=== PATIENT | female | born 1935 | race Caucasian/White ===

== ENCOUNTER → 2016-11-06 | Outpatient (CLI) | payer OTHER ==
[~2016-11-06] MED LIST: ESTR0.3T PO; HYD50 PO; LISI-725 PO; POTA10CA28 PO; PRLSR20 PO
[2016-11-06 12:36] LABS: BASO % 0.5 %; BASO ABS # 0.04 K/uL (0-0.2); COMPLETE YES; EOS % 2.3 %; HEMATOCRIT 46.2 % (37-47); IG% 0.2 %; LYMPH % 26.7 %; LYMPH ABS # 2.19 K/uL (1.2-3.4); MEAN CELL VOLUME 98.1 fL (80-100); MEAN CORPUSCULAR HEMOGLOBIN 32.1 pg (25-34); MEAN CORPUSCULAR HGB CONC 32.7 g/dl (32-36); MEAN PLATELET VOLUME 10.6 fL (7.4-10.4); MONO % 12.1 %; NEUT % 58.2 %; PLATELET COUNT 274 K/uL (130-400); RED BLOOD COUNT 4.71 M/uL (4.2-5.4)
[2016-11-06 12:58] LABS: ESTIMATED AVERAGE GLUCOSE 131 mg/dl; HA1C FLAG Normal (Normal)
[2016-11-06 13:08] LABS: ALT/SGPT 21 U/L (12-78); BLOOD UREA NITROGEN 30 mg/dl (7-18); BUN/CREATININE RATIO 32.4 (10-20); CALCIUM 9.6 mg/dl (8.5-10.1); CARBON DIOXIDE 29 mmol/L (21-32); CHLORIDE 104 mmol/L (98-107); CREATININE 0.91 mg/dl (0.60-1.20); GLUCOSE 108 mg/dl (70-99); POTASSIUM 4.3 mmol/L (3.5-5.1); SODIUM 138 mmol/L (136-145)
[2016-11-06 13:11] LABS: ALB/GLOB RATIO 1.2 (0.9-2); ALKALINE PHOSPHATASE 89 U/L (45-117); AST/SGOT 18 U/L (15-37)
== END | disposition home or self-care (01) ==
LOC: C.LABPVFM 07:36
PROVIDERS: ATTEND Family Medicine
DX: K21.9 Gastro-esophageal reflux disease without esophagitis (principal); N39.41 Urge incontinence; E87.6 Hypokalemia; I10 Essential (primary) hypertension; E11.9 Type 2 diabetes mellitus without complications; R60.9 Edema, unspecified; D64.9 Anemia, unspecified

== ENCOUNTER → 2016-12-13 | Outpatient (CLI) | payer OTHER ==
--- NOTE | 2016-12-16 12:30 | MAMMOGRAPHY REPORT ---
BILATERAL DIGITAL SCREENING MAMMOGRAM WITH CAD: 12/13/2016 CLINICAL HISTORY: Routine screening. Patient has no complaints. TECHNIQUE: Current study was also evaluated with a Computer Aided Detection (CAD) system. Bilateral CC and MLO views were obtained. COMPARISON: Comparison is made to exams dated: 12/13/2015 mammogram, 12/09/2014 mammogram, 12/08/2013 ma mmogram, 12/07/2012 mammogram, 12/05/2011 mammogram, and 12/03/2010 mammogram - [facility]ter. BREAST COMPOSITION: There are scattered areas of fibroglandular density in both breasts. FINDINGS: There are newly visualized faint punctate densities in bilateral posterior breasts, which may represent dermal calcifications or could be artifactual and related to lotion or other product on the skin, however, breast parenchymal calcifications cannot be excluded. Recommend spot magnificati on views and possible spot compression tomosynthesis views for further evaluation. The remainder of the left breast are stable compared to prior exams, without suspicious masses, calci fications, or areas of architectural distortion noted. Other scattered bilateral benign-appearing ca lcifications are not significantly changed. IMPRESSION: ACR BI-RADS CATEGORY 0: INCOMPLETE EVALUATION: NEED ADDITIONAL IMAGING EVALUATION Possible bilateral posterior breast or dermal calcifications, for which additional imaging evaluation is recommended. The patient will be called to schedule an appointment. Approximately 10% of breast cancers are not detected with mammography. A negative mammographic report should not delay biopsy if a clinically suggestive mass is present. Cathy Bravo M.D. ah/:12/14/2016 14:29:10 Shells Inspector: Emmie KHAN(R)(M), [facility] letter sent: Addl Imaging 0 BI-RADS Code: ACR BI-RADS Category 0: Incomplete Evaluation: Need Additional Imaging Evaluation
== END | disposition home or self-care (01) ==
LOC: C.MAMM 10:58
PROVIDERS: ATTEND Family Medicine
DX: Z12.31 Encounter for screening mammogram for malignant neoplasm of breast (principal); R92.8 Other abnormal and inconclusive findings on diagnostic imaging of breast

== ENCOUNTER → 2016-12-24 | Outpatient (CLI) | payer OTHER ==
--- NOTE | 2016-12-24 14:38 | MAMMOGRAPHY REPORT ---
BILATERAL DIGITAL DIAGNOSTIC MAMMOGRAM TOMOSYNTHESIS: 12/24/2016 CLINICAL HISTORY: 81 year-old woman called back from screening mammography for bilateral microcalcifi cations. TECHNIQUE: Spot magnification CC and ML views of each breast, full-field MLO 2-D and tomosynthesis i mages were obtained. COMPARISON: Comparison is made to exams dated: 12/13/2016 mammogram, 12/13/2015 mammogram, 12/09/2014 delon mogram, 12/08/2013 mammogram, 12/07/2012 mammogram, and 12/05/2011 mammogram - [facility]. BREAST COMPOSITION: There are scattered areas of fibroglandular density in both breasts. FINDINGS: Spot magnification views of both breasts demonstrate multiple groupings of amorphous densit ies in each posterior breast, mostly in the inferior and medial aspect of the breasts. On the full-f ield MLO tomosynthesis images, these amorphous densities are seen on the first slice, correlating wit h skin, and confirming benignity. On visual inspection, the patient has multiple keratoses along the lower inner quadrant of each breast. No suspicious mass, architectural distortion or cluster of alma picious microcalcifications are identified within the breasts. IMPRESSION: ACR BI-RADS CATEGORY 2: BENIGN The multiple groupings of amorphous densities in each lower inner posterior breast correlate with pia mal calcifications involving raised keratoses. There is no mammographic evidence of malignancy. Retu rn to annual mammogram screening schedule is recommended. The patient has been verbally notified of the results. Approximately 10% of breast cancers are not detected with mammography. A negative mammographic report should not delay biopsy if a clinically suggestive mass is present. April Saeed M.D. ay/:12/24/2016 09:44:25 Assembly Associate: Lian Peacock RT(R)(M), [facility] letter sent: Normal 1/2 BI-RADS Code: ACR BI-RADS Category 2: Benign
== END | disposition home or self-care (01) ==
LOC: C.MAMM 08:55
PROVIDERS: ATTEND Family Medicine
DX: R92.8 Other abnormal and inconclusive findings on diagnostic imaging of breast (principal)

== ENCOUNTER → 2017-05-07 | Outpatient (CLI) | payer OTHER ==
[2017-05-07 12:55] LABS: ALBUMIN 3.9 gm/dl (3.4-5.0); ALT/SGPT 21 U/L (12-78); BLOOD UREA NITROGEN 32 mg/dl (7-18); CALCIUM 9.3 mg/dl (8.5-10.1); CARBON DIOXIDE 29 mmol/L (21-32); CREATININE 0.79 mg/dl (0.60-1.20); GLUCOSE 126 mg/dl (70-99); SODIUM 137 mmol/L (136-145)
[2017-05-07 12:59] LABS: ALKALINE PHOSPHATASE 86 U/L (45-117); AST/SGOT 19 U/L (15-37); TOTAL PROTEIN 7.4 gm/dl (6.4-8.2)
[2017-05-07 13:05] LABS: HEMOGLOBIN A1C 6.2 % (4.5-5.6)
== END | disposition home or self-care (01) ==
LOC: C.LABPVFM 07:47
PROVIDERS: ATTEND Family Medicine
DX: N39.41 Urge incontinence (principal); E87.6 Hypokalemia; E11.9 Type 2 diabetes mellitus without complications; D64.9 Anemia, unspecified; I10 Essential (primary) hypertension

== ENCOUNTER 2021-04-18 13:01 | Inpatient (IN) ==
--- NOTE | 2021-04-18 14:10 | XRay Report ---
XR chest 1V portable CLINICAL HISTORY: SOB TECHNIQUE: Single frontal radiograph of the chest was obtained. Comparison: Comparison is made to chest one view 03/17/2009 FINDINGS: No lines and tubes are seen. Cardiomegaly is noted. Prominence and cephalization of the vasculature i s seen. No evidence of pleural effusion or pneumothorax. IMPRESSION: Mild pulmonary edema. ACT 112: Negative or not required by law. Electronically signed by: Enzo Solorzano M.D. 04/18/2021 2:09 PM
[2021-04-18 14:43] LABS: Basophils # (auto) 0.01 K/uL (0-0.2); Basophils % (auto) 0.1 %; Eosinophils # (auto) 0.06 K/uL (0-0.5); Eosinophils % (auto) 0.8 %; Hematocrit (blood only) 44.9 % (37-47); Hemoglobin 14.2 g/dL (12.0-16.0); Immature Granulocytes # (auto) 0.02 K/uL (0.00-0.02); Immature Granulocytes % (auto) 0.3 %; Lymphocytes # (auto) 0.97 K/uL (1.2-3.4); Lymphocytes % (auto) 12.6 %; Mean Corpuscular Hemoglobin 32.1 pg (25-34); Mean Corpuscular Hgb Conc 31.6 g/dL (32-36); Mean Corpuscular Volume 101.4 fL (80-100); Mean Platelet Volume 10.9 fL (7.4-10.4); Monocytes # (auto) 0.89 K/uL (0.11-0.59); Monocytes % (auto) 11.5 %; Neutrophils # (auto) 5.77 K/uL (1.4-6.5); Neutrophils % (auto) 74.7 %; Platelet Count 161 K/uL (130-400); RDW Coefficient of Variation 14.9 % (11.5-14.5); RDW Standard Deviation 54.3 fL (36.4-46.3); Red Blood Count 4.43 M/uL (4.2-5.4); White Blood Count 7.72 K/uL (4.8-10.8)
[2021-04-18 15:06] LABS: Alanine Aminotransferase 41 (12-78); Albumin Level 3.6 gm/dl (3.4-5.0); Aspartate Aminotransferase 28 U/L (15-37); BUN Creatinine Ratio 32.4 (10-20); Blood Urea Nitrogen 37 mg/dl (7-18); Carbon Dioxide 30 mmol/L (21-32); Chloride 106 mmol/L (98-107); Glucose 120 mg/dl (70-99); Magnesium 1.9 mg/dl (1.8-2.4); Sodium 142 mmol/L (136-145)
[2021-04-18 15:08] LABS: INR 1.1 (0.9-1.1); Partial Thromboplastin Ratio 0.9; Partial Thromboplastin Time 22.5 Seconds (21.0-31.0); Prothrombin Time 11.2 Seconds (9.0-12.0)
[2021-04-18 15:11] LABS: Alkaline Phosphatase 85 U/L (45-117); Globulin 3.5 gm/dl (2.5-4.0); Total Protein 7.1 gm/dl (6.4-8.2); Troponin I < 0.015 ng/ml (0-0.045)
--- NOTE | 2021-04-18 16:23 | Electrocardiogram Report ---
Test Reason : Blood Pressure : / mmHG Vent. Rate : 089 BPM Atrial Rate : 100 BPM P-R Int : 000 ms QRS Dur : 090 ms QT Int : 362 ms P-R-T Axes : 000 -32 018 degrees QTc Int : 440 ms Poor data quality, interpretation may be adversely affected Atrial fibrillation Left axis deviation Low voltage QRS Possible Anterolateral infarct (cited on or before 18-MAY-2008) Abnormal ECG When compared with ECG of 18-MAY-2008 00:34, Significant changes have occurred Confirmed by Hector Damon ([id number]) on 04/18/2021 4:23:50 PM Referred By: Confirmed By:Hector Damon
--- NOTE | 2021-04-18 16:25 | Emergency Department Note ---
History of Present Illness General Chief complaint: Swelling/Edema to Extremity Stated complaint: SOB, SWOLLEN LEGS, TIRED Time Seen by Provider: 04/18/21 16:02 History of Present Illness 85-year-old female presents to the ED with a chief complaint of 20 pound weight gain over the past month as well as exertional shortness of breath. She has had an increase in her pedal edema as well. The patient denies a history of atrial fibrillation. No fevers or cough. Is taking her medications as prescribed. Nothing helps. Home Medications Medication Instructions Recorded Confirmed Type ferrous fumarate 324 mg (106 mg 324 mg PO DAILY PRN #30 tab 12/26/18 11/21/20 History iron) tablet lisinopril 10 mg tablet 10 mg PO DAILY #90 tab 05/08/20 11/21/20 Rx omeprazole 20 mg capsule,delayed 20 mg PO DAILY #90 cap 07/24/20 11/21/20 Rx release hydrochlorothiazide 50 mg tablet 50 mg PO DAILY #90 tab 10/02/20 11/21/20 Rx Allergies Allergy/AdvReac Type Severity Reaction Status Date / Time Sulfa (Sulfonamide Allergy Unknown Verified 05/30/20 11:08 Antibiotics) Past Med/Surg History Medical History DM (diabetes mellitus), type 2 Hypertension Never a smoker No illicit drug use Surgical History History of section History of hip surgery Left History of hysterectomy History of total knee arthroplasty Family History Daughter Lymphoma Sister Breast cancer Brother Brain tumor Other Diabetes Family history of coronary artery disease Denies family history of Ovarian cancer Prostate cancer Myocardial infarction Colorectal cancer Social History Smoking Status: Never smoker Second Hand Exposure: No; Hx Alcohol Use: No Hx Substance Use: Yes Preferred Language: Montserratian Communication Ability: Effective Hearing Ability: Normal marital status: Current Living Situation: Spouse current occupational status: retired How many Children do You have: 7 Feels Safe at Home: Yes Childhood Exposure to Second-Hand Smoke: Yes caffeine: Yes Dental Care, Regularly: No Physical Activity Frequency: Does not Exercise Seatbelt Use: sometimes Sunscreen Use: No Review of Systems A total of 10 systems reviewed and were otherwise negative Physical Exam Vital Signs Vital Signs - 24 hr 04/18/21 13:37 Temperature 36.7 C Temperature Source Temporal Artery Scan Pulse Rate 90 Respiratory Rate 20 Respiratory Effort / Characteristics Non-Labored Spontaneous Respiratory Depth Normal Respiratory Pattern Regular Blood Pressure 133/78 Blood Pressure Mean 96 Pulse Oximetry 93 Oxygen Delivery Method Room Air Sepsis Recent Fever Within 48 Hours No Sepsis New/Unexplained Change in Mental Status No Sepsis Action Taken by Nursing No Action Required CONSTITUTIONAL/VITAL SIGNS: Reviewed / noted above. GENERAL: Non-toxic in appearance. INTEGUMENTARY: Warm, dry, and [place]. HEAD: Normocephalic. EYES: without scleral icterus or trauma. ENT/OROPHARYNX: clear and moist. LYMPHADENOPATHY/NECK: Is supple without lymphadenopathy or meningismus. RESPIRATORY: Diminished auscultation bilaterally. No increased work of breathing. CARDIOVASCULAR: Regular rate and irregular rhythm. GI/ABDOMEN: Soft and nontender. No organomegaly or pulsatile mass. EXTREMITIES: Warm and well perfused. Positive pedal edema. BACK: No CVA tenderness. NEUROLOGICAL: Intact without focal deficits. PSYCHIATRIC: normal affect. MUSCULOSKELETAL: Normally developed with good muscle tone. TRIAGE NURSING DOCUMENTATION REVIEWED. Medical Decision Making Differential Diagnosis The differential was considered includes acute myocardial infarction, acute coronary syndrome, myocarditis, pericarditis, pericardial effusions /tamponad, esophageal perforation, pulmonary embolism, pneumonia, pneumothorax, cardiomyopathy, congestive heart, anemia , COPD/asthma exacerbation. Medical Records Attestation: I reviewed the patient's medical records. Home Medications Current Medication List: was personally reviewed by me Laboratory Data Attestation: I reviewed the patient's lab results. Result diagrams: 04/18/21 14:30 04/18/21 14:30 Lab Results 04/18/21 04/18/21 04/18/21 Range/Units 14:30 14:30 14:30 WBC 7.72 (4.8-10.8) K/uL RBC 4.43 (4.2-5.4) M/uL Hgb 14.2 (12.0-16.0) g/dL Hct 44.9 (37-47) % MCV 101.4 H (80-100) fL MCH 32.1 (25-34) pg MCHC 31.6 L (32-36) g/dL RDW Std Deviation 54.3 H (36.4-46.3) fL RDW Coeff of Stephania 14.9 H (11.5-14.5) % Plt Count 161 (130-400) K/uL MPV 10.9 H (7.4-10.4) fL Immature Gran % (Auto) 0.3 % Neut % (Auto) 74.7 % Lymph % (Auto) 12.6 % Gibson % (Auto) 11.5 % Eos % (Auto) 0.8 % Baso % (Auto) 0.1 % Neut # (Auto) 5.77 (1.4-6.5) K/uL Lymph # (Auto) 0.97 L (1.2-3.4) K/uL Gibson # (Auto) 0.89 H (0.11-0.59) K/uL Eos # (Auto) 0.06 (0-0.5) K/uL Baso # (Auto) 0.01 (0-0.2) K/uL Immature Gran # (Auto) 0.02 (0.00-0.02) K/uL PT 11.2 (9.0-12.0) Seconds INR 1.1 (0.9-1.1) APTT 22.5 (21.0-31.0) Seconds PTT Ratio 0.9 Sodium 142 (136-145) mmol/L Potassium 4.0 (3.5-5.1) mmol/L Chloride 106 (98-107) mmol/L Carbon Dioxide 30 (21-32) mmol/L Anion Gap 7.0 (3-11) BUN 37 H (7-18) mg/dl Creatinine 1.13 (0.6-1.2) mg/dl Est Cr Clr Drug Dosing Not Reportable Est GFR ( Amer) 51.0 ml/min Est GFR (Non-Af Amer) 44.0 ml/min BUN/Creatinine Ratio 32.4 H (10-20) Glucose 120 H (70-99) mg/dl Calcium 9.0 (8.5-10.1) mg/dl Magnesium 1.9 (1.8-2.4) mg/dl Total Bilirubin 1.0 (0.2-1) mg/dl AST 28 (15-37) U/L ALT 41 (12-78) Alkaline Phosphatase 85 (45-117) U/L Troponin I < 0.015 (0-0.045) ng/ml Total Protein 7.1 (6.4-8.2) gm/dl Albumin 3.6 (3.4-5.0) gm/dl Globulin 3.5 (2.5-4.0) gm/dl Albumin/Globulin Ratio 1.0 (0.9-2) SARS-CoV-2, RNA, NAAT (NEGATIVE) 04/18/21 Range/Units 16:34 WBC (4.8-10.8) K/uL RBC (4.2-5.4) M/uL Hgb (12.0-16.0) g/dL Hct (37-47) % MCV (80-100) fL MCH (25-34) pg MCHC (32-36) g/dL RDW Std Deviation (36.4-46.3) fL RDW Coeff of Stephania (11.5-14.5) % Plt Count (130-400) K/uL MPV (7.4-10.4) fL Immature Gran % (Auto) % Neut % (Auto) % Lymph % (Auto) % Gibson % (Auto) % Eos % (Auto) % Baso % (Auto) % Neut # (Auto) (1.4-6.5) K/uL Lymph # (Auto) (1.2-3.4) K/uL Gibson # (Auto) (0.11-0.59) K/uL Eos # (Auto) (0-0.5) K/uL Baso # (Auto) (0-0.2) K/uL Immature Gran # (Auto) (0.00-0.02) K/uL PT (9.0-12.0) Seconds INR (0.9-1.1) APTT (21.0-31.0) Seconds PTT Ratio Sodium (136-145) mmol/L Potassium (3.5-5.1) mmol/L Chloride (98-107) mmol/L Carbon Dioxide (21-32) mmol/L Anion Gap (3-11) BUN (7-18) mg/dl Creatinine (0.6-1.2) mg/dl Est Cr Clr Drug Dosing Est GFR ( Amer) ml/min Est GFR (Non-Af Amer) ml/min BUN/Creatinine Ratio (10-20) Glucose (70-99) mg/dl Calcium (8.5-10.1) mg/dl Magnesium (1.8-2.4) mg/dl Total Bilirubin (0.2-1) mg/dl AST (15-37) U/L ALT (12-78) Alkaline Phosphatase (45-117) U/L Troponin I (0-0.045) ng/ml Total Protein (6.4-8.2) gm/dl Albumin (3.4-5.0) gm/dl Globulin (2.5-4.0) gm/dl Albumin/Globulin Ratio (0.9-2) SARS-CoV-2, RNA, NAAT NEGATIVE (NEGATIVE) Imaging Data Radiologist's Impression: Chest X-Ray 04/18/21 13:42 XR chest 1V portable CLINICAL HISTORY: SOB TECHNIQUE: Single frontal radiograph of the chest was obtained. Comparison: Comparison is made to chest one view 03/17/2009 FINDINGS: No lines and tubes are seen. Cardiomegaly is noted. Prominence and cephalization of the vasculature is seen. No evidence of pleural effusion or pneumothorax. IMPRESSION: Mild pulmonary edema. ACT 112: Negative or not required by law. Electronically signed by: Enzo Solorzano M.D. 04/18/2021 2:09 PM ECG Data Attestation: I personally reviewed and interpreted this ECG as follows: Additional Comments: Twelve-lead EKG: Per my interpretation there is atrial fibrillation at a rate of 89. No ST elevation. Normal QTC. PAC. No PVCs. MDM Narrative Patient presents with increased weight gain as well as shortness of breath at rest that is mild with exertional dyspnea that is worse. She has new onset atrial fibrillation. She has not had this in the past. This is likely the cause for her congestive heart failure. Her EKG shows A. fib at a rate of 89. Chest x-ray suggest some pulmonary edema. Troponin is negative. CBC and chemistry panel was unremarkable. Covid test was negative. The patient was given IV Lasix here in the ED. I did speak with hospitalist, he will place the order for this and will see the patient for admission. Impression & Plan Atrial fibrillation, new onset, Congestive heart failure Discharge Plan Visit Data Chief Complaint: Swelling/Edema to Extremity Stated Complaint: SOB, SWOLLEN LEGS, TIRED ED Provider: Gonsalo Braden Discharge Problem: Atrial fibrillation, new onset, Congestive heart failure Patient Disposition: Being Evaluated by Hospitalist Forms Stand Alone Forms: My [employer] Prescriptions Prescriptions: No Action lisinopril 10 mg tablet 10 mg PO DAILY Qty: 90 RF: 3 omeprazole 20 mg capsule,delayed release(DR/EC) 20 mg PO DAILY Qty: 90 RF: 3 hydrochlorothiazide 50 mg tablet 50 mg PO DAILY Qty: 90 RF: 3 ferrous fumarate 324 mg (106 mg iron) tablet 324 mg PO DAILY PRNQty: 30 RF: 0 Referrals Referrals: Todd France DO [Primary Care Provider] - Discharge Problem: Congestive heart failure Qualifiers: Heart failure type: unspecified Heart failure chronicity: acute Qualified Code (s): I50.9 - Heart failure, unspecified
--- NOTE | 2021-04-18 16:51 | History & Physical Report ---
Date of Service April 18, 2021 Assessment & Plan (1) Atrial fibrillation, new onset: Plan: Will start on metoprolol for rate control tomorrow morning once CHF improving. [id number] 5. Anticoagulation with heparin IV. TTE (2) Acute congestive heart failure: Plan: Lasix 40mg IV now, preliminary will dose daily but change pending repeat BMP, I&Os, daily weights etc... TTE (3) Acid reflux disease: Plan: Switch omeprazole for pantoprazole per hospital formulary (4) Hypertension: Plan: Hold HCTZ in favor of Lasix. Continue lisinopril 10mg PO daily. Start on metoprolol in AM. Plan: VTE Prophylaxis - heparin IV Diet - heart healthy Disposition - admit to med/tele Admission and Anticipated Discharge Date Admission Date: April 18, 2021 History of Present Illness Chief Complaint: Shortness of breath and leg swelling Primary Care Provider: Todd France DO [place] is an 85 year old female who presents to the ER with shortness of breath and leg swelling. She reports this has been getting progressively worse over the last 3-4 weeks. Shortness of breath mainly on minimal exertion. Associated weight gain. No high salt or change in her diet. No cough, fever or chills. No chest pain, orthopnea, PND, claudication or palpitations. No fever, chills or cough. She has no history of IA, stroke, atrial fibrillation or CHF in the past. In the ER she was noted to be in atrial fibrillation with rate 80-90, CXR concerning for pulmonary edema. She was referred to medicine for admission and ongoing management of CHF and new onset atrial fibrillation. Allergies Allergy/AdvReac Type Severity Reaction Status Date / Time Sulfa (Sulfonamide Allergy Unknown Unknown Verified 04/18/21 17:04 Antibiotics) Home Medications Medication Instructions Recorded Confirmed Type ferrous fumarate 324 mg (106 mg 324 mg PO 2XWK #30 tab 12/26/18 04/18/21 History iron) tablet lisinopril 10 mg tablet 10 mg PO DAILY #90 tab 05/08/20 04/18/21 Rx omeprazole 20 mg capsule,delayed 20 mg PO DAILY #90 cap 07/24/20 04/18/21 Rx release hydrochlorothiazide 50 mg tablet 50 mg PO DAILY #90 tab 10/02/20 04/18/21 Rx multivit with 1 tab PO DAILY 04/18/21 04/18/21 History [id number]-[id number]-HN-lutein 8 mg iron-400 mcg-300 mcg tablet (Centrum Silver Women) Past Med/Surg History Medical History DM (diabetes mellitus), type 2 Hypertension Never a smoker No illicit drug use Surgical History History of section History of hip surgery Left History of hysterectomy History of total knee arthroplasty Family History Daughter Lymphoma Sister Breast cancer Brother Brain tumor Other Diabetes Family history of coronary artery disease Denies family history of Ovarian cancer Prostate cancer Myocardial infarction Colorectal cancer Social History Smoking Status: Never smoker Second Hand Exposure: No; Hx Alcohol Use: Yes Hx Substance Use: No Preferred Language: Kyrgyz Communication Ability: Effective Hearing Ability: Normal Director Critical Care Required: No Beliefs That Will Affect Care: None marital status: Current Living Situation: Spouse current occupational status: retired How many Children do You have: 7 Feels Safe at Home: Yes Safety Concerns: Feels Safe At This Time Childhood Exposure to Second-Hand Smoke: Yes caffeine: Yes Dental Care, Regularly: No Physical Activity Frequency: Does not Exercise Seatbelt Use: sometimes Sunscreen Use: No Assistive Devices: Denture - Upper, Glasses and Walker Review of Systems Review of Systems: All systems reviewed & are unremarkable except as noted in HPI & below Physical Exam Constitutional: WD/WN, vitals as above Eyes: + anicteric sclerae; normal pupil size ENMT: external ear and nose normal, oropharynx normal Neck: trachea midline, no thyromegaly Respiratory: normal respiratory effort; no respiratory distress Auscultation: + diminished lung sounds (bibasal to mid zone of chest); no crackles and no wheezes Cardiovascular: Rate/Rhythm: regular rate and + irregularly irregular Heart Sounds: no murmur Extremities: normal capillary refill and + pedal edema (1+ to knees b/l equal); no calf tenderness Gastrointestinal (Abdomen): normal bowel sounds, soft, nontender, no hepatosplenomegaly Musculoskeletal: no cyanosis or clubbing, extremities motor strength 5/5 Skin: no rashes, warm and dry Neurologic: moves all extremities and awake; not confused Psychiatric: A+Ox3, euthymic affect Genitourinary: no CVA tenderness Results & Data Results & Data ([facility]) Vital Signs (Past 12 Hours) Vital Signs Temp Pulse Resp BP Pulse Ox 04/18/21 13:37 36.7 C 90 20 133/78 93 Laboratory Results Abnormal lab results 04/18/21 04/18/21 Range/Units 14:30 14:30 MCV 101.4 H (80-100) fL MCHC 31.6 L (32-36) g/dL RDW Std Deviation 54.3 H (36.4-46.3) fL RDW Coeff of Stephania 14.9 H (11.5-14.5) % MPV 10.9 H (7.4-10.4) fL Lymph # (Auto) 0.97 L (1.2-3.4) K/uL Mclennan # (Auto) 0.89 H (0.11-0.59) K/uL BUN 37 H (7-18) mg/dl BUN/Creatinine Ratio 32.4 H (10-20) Glucose 120 H (70-99) mg/dl Diagnostic Findings XR chest 1V portable CLINICAL HISTORY: SOB TECHNIQUE: Single frontal radiograph of the chest was obtained. Comparison: Comparison is made to chest one view 03/17/2009 FINDINGS: No lines and tubes are seen. Cardiomegaly is noted. Prominence and cephalization of the vasculature is seen. No evidence of pleural effusion or pneumothorax. IMPRESSION: Mild pulmonary edema. Medications Administered ER Medications Given: None ECG Indication: SOB/dyspnea Rate (beats per minute): 89 Rhythm: atrial fibrillation Findings: + left axis deviation Comparison ECG Date: from (May 18, 2008) Change: the following changes noted (Atrial fibrillation is new) Code Status & VTE Plan Code Status DNR/DNI VTE Prophylaxis Plan VTE Prophylaxis will be ordered: Yes PG Care Time/CCT Total # of Minutes Spent Total Time Spent with Patient: Total time spent is greater than 50% in coordination of care (as documented) at patient's floor/unit and/or counseling patient: Coding Level of Care Code 90809 Initial Inpt Care Lvl 3 Diagnoses Atrial fibrillation, new onset I48.91 Acute congestive heart failure I50.9 Acid reflux disease K21.9 Hypertension I10
[2021-04-18] MEDS ORDERED: FUROSEMIDE 40 MG/4 ML VIAL IV STA (16:58)
[2021-04-18] MEDS ORDERED: Heparin IV Adult Wt-Based Standard *NO* Bolus Protocol IV STA (17:08)
[2021-04-18] MEDS ORDERED: HEPARIN 25000 UNIT/500 ML D5W IV ONE (17:43)
[2021-04-18 17:49] LABS: Thyroid Stimulating Hormone 6.93 uIu/ml (0.300-4.500)
[2021-04-18 18:02] LABS: T4 Free Thyroxine 1.22 ng/dl (0.8-1.6)
[2021-04-18] MEDS: HEPARIN SODIUM/DEXTROSE 25,000 UNITS/500 ML BAG IV SCH (18:09)
[2021-04-18] MEDS ORDERED: ONDANSETRON INJ 2 MG/ML 2 ML VIAL IV PRN (19:45)
[2021-04-18] MEDS ORDERED: ACETAMINOPHEN 325 MG TAB PO PRN (19:45)
[2021-04-18] MEDS ORDERED: POLYETHYLENE (MIRALAX) 17 GM PACK PO PRN (19:45)
[2021-04-19 01:42] LABS: Partial Thromboplastin Ratio 2.4
[2021-04-19 01:45] LABS: Partial Thromboplastin Time 62.3 Seconds (21.0-31.0)
[2021-04-19 07:02] LABS: Basophils # (auto) 0.01 K/uL (0-0.2); Basophils % (auto) 0.1 %; Hematocrit (blood only) 41.7 % (37-47); Hemoglobin 13.6 g/dL (12.0-16.0); Immature Granulocytes # (auto) 0.02 K/uL (0.00-0.02); Immature Granulocytes % (auto) 0.2 %; Lymphocytes # (auto) 1.17 K/uL (1.2-3.4); Lymphocytes % (auto) 11.5 %; Mean Corpuscular Hemoglobin 32.7 pg (25-34); Mean Corpuscular Hgb Conc 32.6 g/dL (32-36); Mean Corpuscular Volume 100.2 fL (80-100); Mean Platelet Volume 10.9 fL (7.4-10.4); Monocytes # (auto) 0.92 K/uL (0.11-0.59); Neutrophils # (auto) 7.97 K/uL (1.4-6.5); Neutrophils % (auto) 78.2 %; Platelet Count 151 K/uL (130-400); RDW Coefficient of Variation 14.8 % (11.5-14.5); RDW Standard Deviation 53.7 fL (36.4-46.3); Red Blood Count 4.16 M/uL (4.2-5.4); White Blood Count 10.19 K/uL (4.8-10.8)
[2021-04-19 07:27] LABS: Partial Thromboplastin Ratio 2.9
[2021-04-19 07:28] LABS: Partial Thromboplastin Time 75.9 Seconds (21.0-31.0)
[2021-04-19 08:04] LABS: BUN Creatinine Ratio 31.3 (10-20); Calcium 9.2 mg/dl (8.5-10.1); Creatinine Clr Calc Pharmacy 46.7 ml/min; Est GFR (African American) 55.7 ml/min; Est GFR (Non-African American) 48.1 ml/min; Potassium 3.4 mmol/L (3.5-5.1)
[2021-04-19] MEDS: lisinopril 10 MG TAB PO SCH (08:31)
[2021-04-19] MEDS: PANTOprazole 40 MG TAB PO SCH (08:31)
[2021-04-19] MEDS: CEROVITE ADV FORMULA TAB PO SCH (08:31)
[2021-04-19] MEDS: METOPROLOL TARTRATE 25 MG TAB PO SCH ×2 (08:32→21:02)
[2021-04-19] MEDS: FUROSEMIDE 40 MG/4 ML VIAL IV SCH (08:32)
[2021-04-19] MEDS: HEPARIN SODIUM/DEXTROSE 25,000 UNITS/500 ML BAG IV SCH ×2 (13:47→18:00)
--- NOTE | 2021-04-19 15:04 | Hospitalist Progress Note ---
Date of Service April 19, 2021 Assessment & Plan (1) Atrial fibrillation, new onset: Plan: [id number] score 5 Currently on heparin GTT Echo: EF 55-60%, diastolic dysfunction. RV not well visualized, appears dilated with reduced systolic function. Sclerotic aortic valve without significant stenosis. Mild mitral regurg. Mild to moderate tricuspid regurg. Normal estimated RVSP. Atrial fibrillation. Adequate rate control today Continue metoprolol tartrate 25 mg p.o. twice daily, convert to succinate prior to discharge -CHF as below Weight 103 kg, normal kidney function, age 85. (2) Acute congestive heart failure: Plan: Acute diastolic congestive failure, likely exacerbated by A. fib with mild pulmonary edema Patient received Lasix 40 mg IV on admission Brisk diuresis with Lasix above CXR: Mild pulmonary edema -Creatinine at baseline 1.13 on admission -1.05 today Potassium slightly low 3.4 today, potassium repletion ordered Sats 8995 on room air Patient also with chronic venous stasis, reports this had worsened more recently and suspect superimposed fluid overload. Leg elevation at least 20 minutes 3 times daily, continue Lasix, may use gentle compression as needed (3) Acid reflux disease: Plan: Switch omeprazole for pantoprazole per hospital formulary (4) Hypertension: Plan: Continue lisinopril 10 mg p.o. daily Continue metoprolol as above HCTZ held, will likely discharge on Lasix Plan: VTE Prophylaxis - heparin IV Diet - heart healthy Disposition - admit to med/tele Admission and Anticipated Discharge Date Admission Date: April 18, 2021 Subjective Seen at bedside. Case discussed extensively with patient and daughter. She feels improved at time of bedside assessment, instability or with anticoagulation as her has been on warfarin for many many years. Discussed various options for anticoagulation, patient if able would like to try one of the newer DOAC's. Can she has swelling in her legs, slightly increased from prior. She feels she had been short of breath with very little exercise tolerance previously, thinks this has improved but notes she has not been around much. Review of Systems Review of Systems: All systems reviewed & are unremarkable except as noted in Subjective Physical Exam Physical Exam: General: A&Ox3. NAD. Cooperative. HEENT: Atraumatic, normocephalic. Visual acuity and hearing grossly intact Pulm: Bibasilar crackles. Symmetrical chest rise. No increase work of breathing. No respiratory distress. Cardiac: iRRR, -mrg. Radial pulses intact and symmetrical. Abdominal: Nontender, nondistended, soft. BS present. Extremities: Warm, dry. Pitting edema of the lower extremities bilaterally. Results & Data Results & Data ([facility]) Vital Signs (Past 12 Hours) Vital Signs Temp Pulse Pulse Resp BP Pulse Ox 04/19/21 11:31 36.7 C 72 18 109/74 89 L 04/19/21 08:10 36.6 C 94 H 18 124/72 91 04/19/21 07:39 87 04/19/21 04:00 36.5 C 90 18 130/77 95 PG Care Time/CCT Total # of Minutes Spent Total Time Spent with Patient: Total time spent is greater than 50% in coordination of care (as documented) at patient's floor/unit and/or counseling patient: Coding Level of Care Code 06496 Subseq Hosp Care Lvl 2 Diagnoses Atrial fibrillation, new onset I48.91 Acute congestive heart failure I50.9 Acid reflux disease K21.9 Hypertension I10
[2021-04-19 15:33] LABS: Partial Thromboplastin Ratio 2.7
[2021-04-19] MEDS: POTASSIUM CHLORIDE 20 MEQ/15 ML UDC PO SCH ×2 (16:13→21:01)
--- NOTE | 2021-04-19 16:54 | XCELERA ---
[id number]
[2021-04-19 23:08] LABS: Partial Thromboplastin Ratio 3.2
[2021-04-19 23:13] LABS: Partial Thromboplastin Time 85.1 Seconds (21.0-31.0)
[2021-04-20 08:00] LABS: Basophils # (auto) 0.01 K/uL (0-0.2); Basophils % (auto) 0.1 %; Eosinophils # (auto) 0.16 K/uL (0-0.5); Eosinophils % (auto) 1.9 %; Hematocrit (blood only) 43.4 % (37-47); Hemoglobin 13.9 g/dL (12.0-16.0); Immature Granulocytes # (auto) 0.02 K/uL (0.00-0.02); Immature Granulocytes % (auto) 0.2 %; Lymphocytes # (auto) 1.99 K/uL (1.2-3.4); Lymphocytes % (auto) 23.6 %; Mean Corpuscular Hemoglobin 31.7 pg (25-34); Mean Corpuscular Volume 99.1 fL (80-100); Mean Platelet Volume 11.5 fL (7.4-10.4); Monocytes # (auto) 1.17 K/uL (0.11-0.59); Monocytes % (auto) 13.8 %; Neutrophils % (auto) 60.4 %; Platelet Count 149 K/uL (130-400); RDW Coefficient of Variation 14.8 % (11.5-14.5); RDW Standard Deviation 52.9 fL (36.4-46.3); Red Blood Count 4.38 M/uL (4.2-5.4); White Blood Count 8.45 K/uL (4.8-10.8)
[2021-04-20] MEDS: POTASSIUM CHLORIDE 20 MEQ/15 ML UDC PO SCH (08:06)
[2021-04-20] MEDS: FUROSEMIDE 40 MG/4 ML VIAL IV SCH (08:07)
[2021-04-20] MEDS: PANTOprazole 40 MG TAB PO SCH (08:07)
[2021-04-20] MEDS: METOPROLOL TARTRATE 25 MG TAB PO SCH ×2 (08:07→20:33)
[2021-04-20] MEDS: CEROVITE ADV FORMULA TAB PO SCH (08:07)
[2021-04-20] MEDS: FERROUS SULFATE 325 MG TAB PO SCH (08:08)
[2021-04-20] MEDS: lisinopril 10 MG TAB PO SCH (08:08)
[2021-04-20 08:36] LABS: BUN Creatinine Ratio 26.4 (10-20); Calcium 8.9 mg/dl (8.5-10.1); Creatinine Clr Calc Pharmacy 39.8 ml/min; Est GFR (African American) 48.4 ml/min; Est GFR (Non-African American) 41.7 ml/min; Potassium 3.7 mmol/L (3.5-5.1)
[2021-04-20 08:43] LABS: Partial Thromboplastin Ratio 2.5
[2021-04-20 08:47] LABS: Partial Thromboplastin Time 65.9 Seconds (21.0-31.0)
[2021-04-20] MEDS: APIXABAN 5 MG TABLET PO SCH ×2 (09:26→20:34)
--- NOTE | 2021-04-20 19:15 | Hospitalist Progress Note ---
Date of Service April 20, 2021 Assessment & Plan (1) Atrial fibrillation, new onset: Plan: [id number] score 5 Heparin GTT converted to Eliquis 5 mg p.o. twice daily Echo: EF 55-60%, diastolic dysfunction. RV not well visualized, appears dilated with reduced systolic function. Sclerotic aortic valve without significant stenosis. Mild mitral regurg. Mild to moderate tricuspid regurg. Normal estimated RVSP. Atrial fibrillation. Adequate rate control today Continue metoprolol tartrate 25 mg p.o. twice daily, convert to succinate prior At discharge -CHF as below Weight 103 kg, normal kidney function, age 85. (2) Acute congestive heart failure: Plan: Acute diastolic congestive failure, likely exacerbated by A. fib with mild pulmonary edema Patient received Lasix 40 mg IV on admission Brisk diuresis with Lasix above. Continuing to have brisk diuresis through the afternoon CXR: Mild pulmonary edema -Creatinine at baseline 1.13 on admission -Remains at baseline Potassium slightly low 3.4 today, potassium repletion ordered Sats [id number] on room air Patient with oxygen saturation in low 90s today, and with rales on exam. Given some fatigue and were fluid continue to diurese, and if doing well progress towards discharge possibly tomorrow. Leg elevation at least 20 minutes 3 times daily, continue Lasix, may use gentle compression as needed. Underlying venous stasis worsened with acute diastolic fluid overload - Low salt diet (3) Acid reflux disease: Plan: Switch omeprazole for pantoprazole per hospital formulary (4) Hypertension: Plan: Continue lisinopril 10 mg p.o. daily Continue metoprolol as above HCTZ held, continue lasix Plan: VTE Prophylaxis - eliquis Diet - heart healthy Disposition - admit to med/tele Admission and Anticipated Discharge Date Admission Date: April 18, 2021 Subjective Seen at bedside, discussed echo results and other labs. Patient doing well. Started Eliquis, patient with no questions. Tolerating metoprolol well. Some lightheadedness, eating and drinking well today. Denies shortness of breath at rest, some shortness of breath moving bed to chair. Review of Systems Review of Systems: All systems reviewed & are unremarkable except as noted in Subjective Physical Exam Physical Exam: General: A&Ox3. NAD. Cooperative. HEENT: Atraumatic, normocephalic. Visual acuity and hearing grossly intact Pulm: Bibasilar rales appreciated on exam. Symmetrical chest rise. No increase work of breathing. No respiratory distress. Cardiac: iRRR, -mrg. Radial pulses intact and symmetrical. Abdominal: Nontender, nondistended, soft. BS present. Extremities: Warm, dry. Pitting edema of the lower extremities bilaterally. Results & Data Results & Data ([facility]) Vital Signs (Past 12 Hours) Vital Signs Temp Pulse Pulse Resp BP Pulse Ox 04/20/21 14:39 36.8 C 103 H 20 112/71 94 04/20/21 11:13 37.0 C 87 20 108/70 93 04/20/21 07:32 72 04/20/21 07:19 36.5 C 78 20 129/81 93 PG Care Time/CCT Total # of Minutes Spent Total Time Spent with Patient: Total time spent is greater than 50% in coordination of care (as documented) at patient's floor/unit and/or counseling patient: Coding Level of Care Code 32072 Subseq Hosp Care Lvl 2 Diagnoses Atrial fibrillation, new onset I48.91 Acute congestive heart failure I50.9 Acid reflux disease K21.9 Hypertension I10
[2021-04-21 06:22] LABS: Basophils # (auto) 0.01 K/uL (0-0.2); Basophils % (auto) 0.1 %; Eosinophils # (auto) 0.04 K/uL (0-0.5); Eosinophils % (auto) 0.4 %; Hemoglobin 13.3 g/dL (12.0-16.0); Immature Granulocytes # (auto) 0.03 K/uL (0.00-0.02); Immature Granulocytes % (auto) 0.3 %; Lymphocytes # (auto) 1.37 K/uL (1.2-3.4); Lymphocytes % (auto) 13.9 %; Mean Corpuscular Hemoglobin 31.6 pg (25-34); Mean Corpuscular Hgb Conc 31.7 g/dL (32-36); Mean Corpuscular Volume 99.8 fL (80-100); Mean Platelet Volume 10.9 fL (7.4-10.4); Monocytes # (auto) 1.66 K/uL (0.11-0.59); Monocytes % (auto) 16.8 %; Neutrophils # (auto) 6.78 K/uL (1.4-6.5); Neutrophils % (auto) 68.5 %; Platelet Count 155 K/uL (130-400); RDW Coefficient of Variation 14.8 % (11.5-14.5); RDW Standard Deviation 53.8 fL (36.4-46.3); Red Blood Count 4.21 M/uL (4.2-5.4); White Blood Count 9.89 K/uL (4.8-10.8)
[2021-04-21 06:31] LABS: Partial Thromboplastin Ratio 1.2
[2021-04-21 06:49] LABS: BUN Creatinine Ratio 29.6 (10-20); Calcium 8.2 mg/dl (8.5-10.1); Creatinine Clr Calc Pharmacy 43.2 ml/min; Est GFR (African American) 50.4 ml/min; Est GFR (Non-African American) 43.5 ml/min; Potassium 3.5 mmol/L (3.5-5.1)
[2021-04-21] MEDS: METOPROLOL TARTRATE 25 MG TAB PO SCH ×2 (09:22→21:52)
[2021-04-21] MEDS: lisinopril 10 MG TAB PO SCH (09:22)
[2021-04-21] MEDS: APIXABAN 5 MG TABLET PO SCH ×2 (09:22→21:52)
[2021-04-21] MEDS: FUROSEMIDE 40 MG/4 ML VIAL IV SCH (09:23)
[2021-04-21] MEDS: PANTOprazole 40 MG TAB PO SCH (09:23)
[2021-04-21] MEDS: CEROVITE ADV FORMULA TAB PO SCH (09:23)
--- NOTE | 2021-04-21 14:53 | Hospitalist Progress Note ---
Date of Service April 21, 2021 Assessment & Plan (1) Acute on chronic right-sided congestive heart failure: Plan: echo with RV dysfunction. long-standing, untreated SEBAS? underlying chronic lung disease? other? still volume overloaded - cont diuresis. give additional lasix IV this afternoon. labs am. control the a.fib. hold SANTOSH to allow more room for her beta earnest, if needed. [place] [facility] [place] given her CHF, a.fib, and WMA on echo. (2) Atrial fibrillation, new onset: Plan: [id number] score 5 Heparin drip converted to Eliquis 5 mg p.o. twice daily Continue metoprolol tartrate 25 mg p.o. twice daily for rate control Keep on tele Check K/Mag in am TSH 6.9 this admission; advise f/u TSH post-d/c (3) Acid reflux disease: Plan: Cont PPI (4) Hypertension: Plan: Hold SANTOSH Hold HCTZ Cont metoprolol BPs controlled (5) DM (diabetes mellitus), type 2: Plan: Check a1c in am Previous a1c's were about 7 or less (6) Hyperlipidemia: Plan: not on meds for such LDL 113 this past summer Plan: daughter updated at bedside PT/OT evals completed - PT advised home with home PT eval Admission and Anticipated Discharge Date Admission Date: April 18, 2021 Subjective tele overnight w/ a.fib dyspnea improving although not resolved still with considerable LE edema daughter was at bedside - states her mother has always had edema but "not this bad" patient anxious to get home eating well Review of Systems Review of Systems: gen - no fevers cv - no cp, no orthopnea pulm - no cough, but having dyspnea GI - no abd pain Physical Exam Physical Exam: gen - obese, looks mildly tachypneic neck - JVD present heart - irregular, s1 s2, no murmur lungs - bibasilar rales 1/3-1/2 way up back, no wheeze abd - soft NT ext - 3+ pitting edema b/l skin - venous stasis changes b/l legs Results & Data Results & Data ([facility]) Vital Signs (Past 12 Hours) Vital Signs Temp Pulse Pulse Resp BP Pulse Ox 04/21/21 11:40 37.2 C 82 18 99/62 L 90 04/21/21 09:41 89 112/72 12/11/21 08:00 80 04/21/21 03:19 36.8 C 73 18 105/71 91 Laboratory Results Laboratory Results - last 24 hr 04/21/21 04/21/21 04/21/21 05:44 05:44 05:44 WBC 9.89 RBC 4.21 Hgb 13.3 Hct 42.0 MCV 99.8 MCH 31.6 MCHC 31.7 L RDW Std Deviation 53.8 H RDW Coeff of Stephania 14.8 H Plt Count 155 MPV 10.9 H Immature Gran % (Auto) 0.3 Neut % (Auto) 68.5 Lymph % (Auto) 13.9 [place] % (Auto) 16.8 Eos % (Auto) 0.4 Baso % (Auto) 0.1 Neut # (Auto) 6.78 H Lymph # (Auto) 1.37 [place] # (Auto) 1.66 H Eos # (Auto) 0.04 Baso # (Auto) 0.01 Immature Gran # (Auto) 0.03 H APTT 31.0 PTT Ratio 1.2 Sodium 141 Potassium 3.5 Chloride 102 Carbon Dioxide 33 H Anion Gap 5.0 BUN 34 H Creatinine 1.14 Est Cr Clr Drug Dosing 43.2 Est GFR ( Amer) 50.4 Est GFR (Non-Af Amer) 43.5 BUN/Creatinine Ratio 29.6 H Glucose 141 H Calcium 8.2 L PG Care Time/CCT Total # of Minutes Spent Total Time Spent with Patient: Total time spent is greater than 50% in coordination of care (as documented) at patient's floor/unit and/or counseling patient: Coding Level of Care Code 90666 Subseq Hosp Care Lvl 2 Diagnoses Atrial fibrillation, new onset I48.91 Acid reflux disease K21.9 Hypertension I10 Acute on chronic right-sided congestive heart failure I50.813 DM (diabetes mellitus), type 2 E11.9 Hyperlipidemia E78.5
[2021-04-21] MEDS: POTASSIUM CHLORIDE CRTAB 20 MEQ TABCR PO SCH ×2 (16:02→21:54)
[2021-04-21] MEDS: MAGNESIUM OXIDE 400 MG TAB PO SCH (16:03)
[2021-04-21] MEDS ORDERED: FUROSEMIDE 40 MG/4 ML VIAL IV ONE (17:00)
[2021-04-22] MEDS: PANTOprazole 40 MG TAB PO SCH (08:06)
[2021-04-22] MEDS: METOPROLOL TARTRATE 25 MG TAB PO SCH ×2 (08:06→20:18)
[2021-04-22] MEDS: APIXABAN 5 MG TABLET PO SCH ×2 (08:06→20:18)
[2021-04-22] MEDS: FERROUS SULFATE 325 MG TAB PO SCH (08:07)
[2021-04-22] MEDS: CEROVITE ADV FORMULA TAB PO SCH (08:07)
[2021-04-22] MEDS: FUROSEMIDE 40 MG/4 ML VIAL IV SCH (08:08)
[2021-04-22] MEDS: POTASSIUM CHLORIDE CRTAB 20 MEQ TABCR PO SCH ×3 (08:17→20:18)
[2021-04-22 08:43] LABS: Calcium 8.8 mg/dl (8.5-10.1); Creatinine Clr Calc Pharmacy 35.5 ml/min; Est GFR (African American) 41.1 ml/min; Est GFR (Non-African American) 35.5 ml/min; Magnesium 1.6 mg/dl (1.8-2.4)
[2021-04-22] MEDS: MAGNESIUM OXIDE 400 MG TAB PO SCH (09:56)
[2021-04-22] MEDS: MAGNESIUM SULFATE / D5W 1 GM/100 ML BAG IV SCH ×2 (11:35→13:43)
[2021-04-22] MEDS ORDERED: FUROSEMIDE INJ 20 MG/2 ML VIAL IV ONE (17:00)
--- NOTE | 2021-04-22 21:52 | Hospitalist Progress Note ---
Date of Service April 22, 2021 Assessment & Plan (1) Acute on chronic right-sided congestive heart failure: Plan: echo with RV dysfunction. long-standing, untreated SEBAS? underlying chronic lung disease? other? still volume overloaded based on exam - cont diuresis. again give additional lasix IV this afternoon. labs am. control the a.fib. continue to hold SANTOSH. recommended f/u with [facility] [place] Cardiology post-discharge given her CHF, a.fib, and WMA on echo. if lung exam is unchanged tomorrow despite aggressive diuresis will obtain CT chest non-contrast to r/o ILD, other primary lung processes. (2) Atrial fibrillation, new onset: Plan: [id number] score 5 Heparin drip converted to Eliquis 5 mg p.o. twice daily Continue metoprolol tartrate 25 mg p.o. twice daily for rate control Keep on tele Replace low mag TSH 6.9 this admission; advise f/u TSH post-d/c (3) Acid reflux disease: Plan: Cont PPI (4) Hypertension: Plan: Hold SANTOSH Hold HCTZ Cont metoprolol BPs controlled (5) DM (diabetes mellitus), type 2: Plan: Check a1c in am Previous a1c's were about 7 or less AM glucoses have been wnl (6) Hyperlipidemia: Plan: not on meds for such LDL 113 this past summer (7) Hypomagnesemia: Plan: 2 grams mag sulfate x 1 repeat mag level am (8) DVT prophylaxis: Plan: eliquis BID Plan: daughter updated at bedside yesterday PT/OT evals completed - PT advised home with home PT eval Admission and Anticipated Discharge Date Admission Date: April 18, 2021 Subjective tele overnight - a.fib rates controlled, <100 pt states she might be a "little better" with respect to her breathing is getting up to the bathroom with assistance - does still note mild GIBBS edema modestly better no new complaints Review of Systems Review of Systems: gen - no fevers, eating well cv - no chest pain pulm - no cough GI - no N/V Physical Exam Physical Exam: gen - obese, still looks mildly tachypneic neck - JVD still present heart - irregular, s1 s2, no murmur; rates <100 lungs - bibasilar rales 1/3-1/[address] up back - no change in quantity of the rales despite diuresis; no wheeze abd - soft NT ND BS+ ext - 2+ pitting edema b/l skin - venous stasis changes b/l legs Results & Data Results & Data ([facility]) Vital Signs (Past 12 Hours) Vital Signs Temp Pulse Pulse Resp BP Pulse Ox 04/22/21 19:00 36.5 C 95 H 21 129/84 92 04/22/21 16:00 101 H 04/22/21 15:19 37.0 C 85 20 125/76 93 04/22/21 11:12 37.0 C 78 16 128/84 90 Laboratory Results Laboratory Results - last 24 hr 04/22/21 04/22/21 07:38 07:38 Sodium 140 Potassium 4.0 Chloride 101 Carbon Dioxide 31 Anion Gap 8.0 BUN 37 H Creatinine 1.35 H Est Cr Clr Drug Dosing 35.5 Est GFR ( Amer) 41.1 Est GFR (Non-Af Amer) 35.5 BUN/Creatinine Ratio 27.0 H Glucose 126 H Estimat Average Glucose Pending Hemoglobin A1c Pending Calcium 8.8 Magnesium 1.6 L PG Care Time/CCT Total # of Minutes Spent Total Time Spent with Patient: Total time spent is greater than 50% in coordination of care (as documented) at patient's floor/unit and/or counseling patient: Coding Level of Care Code 75418 Subseq Hosp Care Lvl 2 Diagnoses Acute on chronic right-sided congestive heart failure I50.813 Atrial fibrillation, new onset I48.91 Acid reflux disease K21.9 Hypertension I10 DM (diabetes mellitus), type 2 E11.9 Hyperlipidemia E78.5 Hypomagnesemia E83.42 DVT prophylaxis Z29.9
[2021-04-23 07:31] LABS: Estimated Average Glucose 157 mg/dl; Hemoglobin A1C 7.1 % (4.5-5.6)
[2021-04-23 07:53] LABS: Potassium 4.4 mmol/L (3.5-5.1)
[2021-04-23] MEDS: CEROVITE ADV FORMULA TAB PO SCH (07:56)
[2021-04-23] MEDS: APIXABAN 5 MG TABLET PO SCH ×2 (07:56→20:37)
[2021-04-23] MEDS: MAGNESIUM OXIDE 400 MG TAB PO SCH (07:56)
[2021-04-23] MEDS: METOPROLOL TARTRATE 25 MG TAB PO SCH ×2 (07:56→20:37)
[2021-04-23] MEDS: PANTOprazole 40 MG TAB PO SCH (07:56)
[2021-04-23 07:57] LABS: BUN Creatinine Ratio 31.9 (10-20); Calcium 8.8 mg/dl (8.5-10.1); Creatinine Clr Calc Pharmacy 37.6 ml/min; Est GFR (African American) 43.4 ml/min; Est GFR (Non-African American) 37.5 ml/min; Magnesium 1.9 mg/dl (1.8-2.4)
[2021-04-23] MEDS ORDERED: BUMETANIDE 1 MG in SYRINGE 0 ML IV ONE (09:15)
--- NOTE | 2021-04-23 13:37 | Hospitalist Progress Note ---
Date of Service April 23, 2021 Assessment & Plan (1) Acute on chronic right-sided congestive heart failure: Plan: echo with RV dysfunction. long-standing, untreated SEBAS? underlying chronic lung disease (see below)? other? still volume overloaded based on exam - cont diuresis. try bumex IV in mario alberto of lasix IV to see if this leads to better diuresis. labs am. control the a.fib. continue to hold SANTOSH due to soft BPs. [place] [facility] [place] given her CHF, a.fib, and WMA on echo. (2) Atrial fibrillation, new onset: Plan: [id number] score 5 Heparin drip converted to Eliquis 5 mg p.o. twice daily Continue metoprolol tartrate 25 mg p.o. twice daily for rate control Keep on tele Replace low mag TSH 6.9 this admission; advise f/u TSH post-d/c (3) Acid reflux disease: Plan: Cont PPI (4) Hypertension: Plan: Hold SANTOSH Hold HCTZ Cont metoprolol BPs controlled (5) DM (diabetes mellitus), type 2: Plan: A1c 7.1% this admission similar to prior A1c's cont dietary control for now (6) Hyperlipidemia: Plan: not on meds for such LDL 113 this past summer (7) Hypomagnesemia: Plan: replaced/resolved (8) DVT prophylaxis: Plan: eliquis BID (9) Pulmonary fibrosis: Plan: CT chest, noncontrast, suggests fibrosis Exam - despite aggressive diuresis - continues with "dry" rales b/l which is c/w CT findings this may explain borderline low O2 sats in RA discussed possible dx with daughter by phone will review CT results tomorrow w/ patient 2-step at discharge pulmonary referral after d/c to see if they feel she does indeed have PF explained to daughter that if PF is truly present it is likely idiopathic pulm HTN/right heart disease could be partly due to the lung disease on CT Plan: daughter updated by phone today PT/OT vinayak completed - PT advised home with home PT eval cont PT, OT home next 1-2 days? Admission and Anticipated Discharge Date Admission Date: April 18, 2021 Subjective patient sitting in chair comfortably during the visit she states she doesn't really feel any different (pulmonary oden) relative to yesterday despite diuresis a.fib rates <100 on tele with walking to bathroom still has mild GIBBS never was smoker LE edema continues despite diuresis no new complaints Review of Systems Review of Systems: gen - no fevers cv - no orthopnea, no cp pulm - no cough or congestion GI - no N/V; eating well Physical Exam Physical Exam: gen - obese, still looks mildly tachypneic (comfortable tachypnea) neck - JVD still present heart - irregular, s1 s2, no murmur; rates <100 lungs - bibasilar rales 1/[address] back - no change in quantity of the rales relative to yesterday; no wheeze abd - soft NT ND BS+ ext - 2+ pitting edema b/l - no change skin - venous stasis changes b/l legs unchanged Results & Data Results & Data ([facility]) Vital Signs (Past 12 Hours) Vital Signs Temp Pulse Pulse Resp BP BP Pulse Ox 04/23/21 11:18 36.6 C 94 H 20 112/72 90 04/23/21 10:31 95 H 04/23/21 07:20 36.8 C 81 18 109/73 92 04/23/21 04:57 82 04/23/21 03:00 36.9 C 81 18 121/87 92 Laboratory Results Laboratory Results - last 24 hr 04/22/21 04/23/21 07:38 06:26 Sodium 137 Potassium 4.4 Chloride 101 Carbon Dioxide 32 Anion Gap 4.0 BUN 41 H Creatinine 1.29 H Est Cr Clr Drug Dosing 37.6 Est GFR ( Amer) 43.4 Est GFR (Non-Af Amer) 37.5 BUN/Creatinine Ratio 31.9 H Glucose 126 H Estimat Average Glucose 157 Hemoglobin A1c 7.1 H Calcium 8.8 Magnesium 1.[address] 04/23/21 13:35 CT chest diagnostic wo con CLINICAL HISTORY: extensive b/l rales; ILD? 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 other? TECHNIQUE: Multidetector row helical CT of the chest was performed. Coronal and sagittal reformations were obtained. Automated dose lowering techniques and/or adjustment according to patient size were utilized for this exam. Comparison: None available at the time of this dictation. FINDINGS: Lungs and pleura: Diffuse peripheral reticular opacities are seen without evidence of subpleural sparing. Bronchial wall thickening is noted. Mosaic attenuation is seen. There is a trace left pleural effusion. Heart and pericardium: There is cardiomegaly without evidence of pericardial effusion. Vessels: Severe atherosclerotic changes in the aorta and coronary arteries. Pulmonary trunk measures up to 35 mm in diameter. Mediastinum and raulito: Unremarkable. Chest wall and lower neck: Unremarkable. Abdomen: A hiatal hernia is seen. Bones: Unremarkable. IMPRESSION: Scattered fibrotic changes within the lung. Cardiomegaly and pulmonary hypertension. ACT 112: Negative or not required by law. Electronically signed by: Enzo Solorzano M.D. 04/23/2021 3:02 PM PG Care Time/CCT Total # of Minutes Spent Total Time Spent with Patient: Total time spent is greater than 50% in coordination of care (as documented) at patient's floor/unit and/or counseling patient: Coding Level of Care Code 63628 Subseq Hosp Care Lvl 3 Diagnoses Acute on chronic right-sided congestive heart failure I50.813 Atrial fibrillation, new onset I48.91 Acid reflux disease K21.9 Hypertension I10 DM (diabetes mellitus), type 2 E11.9 Hyperlipidemia E78.5 Hypomagnesemia E83.42 DVT prophylaxis Z29.9 Pulmonary fibrosis J84.10
--- NOTE | 2021-04-23 15:03 | CT Scan Report ---
CT chest diagnostic wo con CLINICAL HISTORY: extensive b/l rales; ILD? INJURY/SAFETY HAZARD ASSESSMENT? other? TECHNIQUE: Multidetector row helical CT of the chest was performed. Coronal and sagittal reformations were obtained. Automated dose lowering techniques and/or adjustment according to patient size were u tilized for this exam. Comparison: None available at the time of this dictation. FINDINGS: Lungs and pleura: Diffuse peripheral reticular opacities are seen without evidence of subpleural spar ing. Bronchial wall thickening is noted. Mosaic attenuation is seen. There is a trace left pleural ef fusion. Heart and pericardium: There is cardiomegaly without evidence of pericardial effusion. Vessels: Severe atherosclerotic changes in the aorta and coronary arteries. Pulmonary trunk measures up to 35 mm in diameter. Mediastinum and raulito: Unremarkable. Chest wall and lower neck: Unremarkable. Abdomen: A hiatal hernia is seen. Bones: Unremarkable. IMPRESSION: Scattered fibrotic changes within the lung. Cardiomegaly and pulmonary hypertension. ACT 112: Negative or not required by law. Electronically signed by: Enzo Solorzano M.D. 04/23/2021 3:02 PM
[2021-04-24 07:03] LABS: Hematocrit (blood only) 43.5 % (37-47); Hemoglobin 13.7 g/dL (12.0-16.0); Mean Corpuscular Hemoglobin 31.3 pg (25-34); Mean Corpuscular Hgb Conc 31.5 g/dL (32-36); Mean Corpuscular Volume 99.3 fL (80-100); Mean Platelet Volume 10.9 fL (7.4-10.4); Platelet Count 175 K/uL (130-400); RDW Coefficient of Variation 14.5 % (11.5-14.5); RDW Standard Deviation 52.2 fL (36.4-46.3); Red Blood Count 4.38 M/uL (4.2-5.4); White Blood Count 7.24 K/uL (4.8-10.8)
[2021-04-24 07:44] LABS: BUN Creatinine Ratio 41.6 (10-20); Calcium 9.1 mg/dl (8.5-10.1); Creatinine Clr Calc Pharmacy 46.1 ml/min; Est GFR (African American) 55.7 ml/min; Est GFR (Non-African American) 48.1 ml/min; Potassium 3.9 mmol/L (3.5-5.1)
[2021-04-24] MEDS: CEROVITE ADV FORMULA TAB PO SCH (08:33)
[2021-04-24] MEDS: PANTOprazole 40 MG TAB PO SCH (08:33)
[2021-04-24] MEDS: METOPROLOL TARTRATE 25 MG TAB PO SCH ×2 (08:33→19:42)
[2021-04-24] MEDS: APIXABAN 5 MG TABLET PO SCH ×2 (08:33→19:42)
[2021-04-24] MEDS: MAGNESIUM OXIDE 400 MG TAB PO SCH (08:33)
[2021-04-24] MEDS ORDERED: BUMETANIDE 1 MG TAB PO SCH (09:00)
[2021-04-24] MEDS ORDERED: BUMETANIDE 1 MG TAB PO ONE (18:30)
--- NOTE | 2021-04-24 23:26 | Hospitalist Progress Note ---
Date of Service April 24, 2021 Assessment & Plan (1) Acute on chronic right-sided congestive heart failure: Plan: echo with RV dysfunction. 2nd to long-standing, untreated SEBAS? 2nd to underlying chronic lung disease (fibrosis)? other? still volume overloaded based on exam - cont diuresis. bumex seemed to help with diuresis better than lasix. cont bumex. labs am. control the a.fib. continue to hold SANTOSH due to soft BPs. recommended f/u with [facility] [place] Cardiology post-discharge given her CHF, a.fib, and WMA on echo. Ms Strauss with CHF clinic consulted. (2) Atrial fibrillation, new onset: Plan: [id number] score 5 Cont eliquis 5mg BID Continue metoprolol tartrate 25 mg p.o. twice daily Controlled (3) Acid reflux disease: Plan: Cont PPI (4) Hypertension: Plan: Hold SANTOSH Hold HCTZ Cont metoprolol BPs controlled (5) DM (diabetes mellitus), type 2: Plan: A1c 7.1% this admission similar to prior A1c's cont dietary control for now (6) Hyperlipidemia: Plan: not on meds for such LDL 113 this past summer (7) Hypomagnesemia: Plan: replaced/resolved repeat level am (8) DVT prophylaxis: Plan: eliquis BID (9) Pulmonary fibrosis: Plan: CT chest, noncontrast, suggests fibrosis Exam - despite aggressive diuresis - continues with "dry" rales b/l which is c/w CT findings this may explain borderline low O2 sats in RA discussed possible dx with daughter by phone patient aware of CT results 2-step at discharge pulmonary referral after d/c to see if they feel she does indeed have PF explained to daughter that if PF is truly present it is likely idiopathic pulm HTN/right heart disease could be partly due to the lung disease on CT Plan: daughter updated by phone yesterday PT/OT evals completed - PT advised home with home PT eval cont PT, OT home next 1-2 days depending on labs, weight, volume status Admission and Anticipated Discharge Date Admission Date: April 18, 2021 Subjective no issues overnight tele with rate-controlled a.fib pt states she "doesn't notice any change in her legs" (edema) dyspnea on exertion unchanged eating well Review of Systems Review of Systems: gen - feeling well overall cv - no orthopnea pulm - no cough GI - no abd pain Physical Exam Physical Exam: gen - obese, NAD neck - JVD still present heart - irregular, s1 s2, no murmur; regular rate lungs - bibasilar rales modestly improved today abd - soft NT ND BS+ ext - 2+ pitting edema b/l - no change skin - venous stasis changes b/l legs unchanged Results & Data Results & Data ([facility]) Vital Signs (Past 12 Hours) Vital Signs Temp Pulse Pulse Resp BP BP Pulse Ox 04/24/21 22:56 36.6 C 82 18 129/81 91 04/24/21 20:15 36.6 C 100 H 18 104/72 93 04/24/21 15:15 36.6 C 93 H 20 116/68 93 04/24/21 15:00 104 H 04/24/21 11:34 36.8 C 81 20 124/80 93 Laboratory Results Laboratory Results - last 24 hr 04/24/21 04/24/21 04/24/21 06:17 06:17 20:11 WBC 7.24 RBC 4.38 Hgb 13.7 Hct 43.5 MCV 99.3 MCH 31.3 MCHC 31.5 L RDW Std Deviation 52.2 H RDW Coeff of Stephania 14.5 Plt Count 175 MPV 10.9 H Sodium 140 Potassium 3.9 Chloride 102 Carbon Dioxide 30 Anion Gap 8.0 BUN 44 H Creatinine 1.05 Est Cr Clr Drug Dosing 46.1 Est GFR ( Amer) 55.7 Est GFR (Non-Af Amer) 48.1 BUN/Creatinine Ratio 41.6 H Glucose 132 H POC Glucose 155 H Calcium 9.1 PG Care Time/CCT Total # of Minutes Spent Total Time Spent with Patient: Total time spent is greater than 50% in coordination of care (as documented) at patient's floor/unit and/or counseling patient: Coding Level of Care Code 04997 Subseq Hosp Care Lvl 2 Diagnoses Acute on chronic right-sided congestive heart failure I50.813 Atrial fibrillation, new onset I48.91 Acid reflux disease K21.9 Hypertension I10 DM (diabetes mellitus), type 2 E11.9 Hyperlipidemia E78.5 Hypomagnesemia E83.42 DVT prophylaxis Z29.9 Pulmonary fibrosis J84.10
[2021-04-25] MEDS: CEROVITE ADV FORMULA TAB PO SCH (07:56)
[2021-04-25] MEDS: MAGNESIUM OXIDE 400 MG TAB PO SCH ×2 (07:56→20:18)
[2021-04-25] MEDS: APIXABAN 5 MG TABLET PO SCH ×2 (07:57→20:18)
[2021-04-25] MEDS: PANTOprazole 40 MG TAB PO SCH (07:57)
[2021-04-25] MEDS: METOPROLOL TARTRATE 25 MG TAB PO SCH (07:57)
[2021-04-25 08:00] LABS: BUN Creatinine Ratio 34.9 (10-20); Calcium 8.9 mg/dl (8.5-10.1); Creatinine Clr Calc Pharmacy 44.2 ml/min; Est GFR (African American) 53.2 ml/min; Est GFR (Non-African American) 45.9 ml/min; Magnesium 1.7 mg/dl (1.8-2.4); Potassium 3.9 mmol/L (3.5-5.1)
[2021-04-25] MEDS ORDERED: BUMETANIDE 1 MG in SYRINGE 0 ML IV ONE ×2 (09:15→17:00)
[2021-04-25] MEDS: MAGNESIUM SULFATE / D5W 1 GM/100 ML BAG IV SCH ×2 (09:49→12:00)
--- NOTE | 2021-04-25 12:11 | Heart Failure Consultation ---
Date of Consultation April 25, 2021 Assessment & Plan (1) Acute on chronic right-sided congestive heart failure: (2) Atrial fibrillation, new onset: (3) Pulmonary fibrosis: (4) Hypertension: (5) Edema: Acute on chronic right heart failure: Currently NYHA Class II. Patient has no previous cardiac history or history of heart failure. She was taking HCTZ at home. She presented with classic symptoms including dyspnea, edema, and weight gain. She was hypervolemic on exam. Patient also with new onset atrial fibrillation and suspected ILD which may be contributing to her presentation. Suspect cor pulmonale/SEBAS as well. Would consider sleep medicine eval as outpatient. She has been responding well to IV diuretics but remains hypervolemic. She would likely benefit from additional diuresis. I think this would be more effective here with another day or two of IV Bumex, however maryann nt is anxious to be discharge. She is agreeable to close follow up with the heart failure program and will likely continue to diurese at home which is reasonable. Continue monitoring kidney function and electrolytes. Low sodium diet. Strict I&Os. Daily standing weights. Atrial fibrillation: Rate well controlled on Metoprolol. She's asymptomatic. Initiated on Eliquis 5 mg BID. Hypertension: Well controlled. Continue current regimen. Pulmonary fibrosis: Suspected on CT scan. Will need pulmonary follow as outpatient. Could be contributing to presentation and leading to RV failure. Would recommend establishing with primary tannery gummer after discharge. sees Dr. Hinojosa so I will arrange this. Disposition: Enrolled in the heart failure program. Follow up 05/01/21 at 1030. History of Present Illness Reason for Consultation: RV dysfunction Attending Physician: Yung Walter History of Present Illness Ms. Tipton is an 85 year old with history of DM, hyperlipidemia, obesity, and acid reflux. She was recently diagnosed with new onset atrial fibrillation, suspected ILD, and cor pulmonale/RV dysfunction. She does not currently follow with a tannery gummer. Recent cardiac studies: 1. 04/19/21 echo: Normal LV size and systolic function. EF 55-60%. Hypokinetic inferolateral wall. No LVH. Diastolic dysfunction. RV not well visualized but appears dilated with reduced systolic function. Mild left atrial dilation. Sclerotic AV without stenosis. Mild MR. Mild-mod TR. normal RVSP. Patient presented to the ED on 04/18/21 with edema, shortness of breath, and 20 lb weight gain. CXR with mild pulmonary edema. EKG consistent with new onset atrial fibrillation, rate [address] elevation. Troponin negative. COVID negative. She was treated with IV Lasix in the ED. Echo with preserved EF but with RV dysfunction. She was initiated on Metoprolol for rate control as well as Heparin. Patient continues to improve with diuretics but still with abnormal lung exam. CT scan suggest pulmonary fibrosis. Lasix switched to Bumex on 04/23 to see if she has improved diuretic response. Patient has been referred to the [facility]. She is known to me as I have been following her for some time. Patient reports she's feeling improved today but not yet to baseline. She has been ambulating in her room without much difficulty. She is stable on room air. She has been sleeping well with her head elevated. Denies PND. She continues to have lower extremity edema. She denies chest pain, palpitations, lightheadedness. Creatinine is normal and BUN is trending down. She had Bumex 1 mg IV this am. I&Os likely not entirely accurate. Weight continues to trend down- 222 lb on standing scale this am. FamHx: DM, CAD, BRCA- sister, SocHx: Patient lives independently at home with her . She has multiple children who are local and supportive. She denies tobacco use. Allergies Allergy/AdvReac Type Severity Reaction Status Date / Time Sulfa (Sulfonamide Allergy Unknown Unknown Verified 04/18/21 17:04 Antibiotics) Home Medications Medication Instructions Recorded Confirmed Type ferrous fumarate 324 mg (106 mg 324 mg PO 2XWK #30 tab 12/26/18 04/18/21 History iron) tablet lisinopril 10 mg tablet 10 mg PO DAILY #90 tab 05/08/20 04/18/21 Rx omeprazole 20 mg capsule,delayed 20 mg PO DAILY #90 cap 07/24/20 04/18/21 Rx release hydrochlorothiazide 50 mg tablet 50 mg PO DAILY #90 tab 10/02/20 04/18/21 Rx multivit with 1 tab PO DAILY 04/18/21 04/18/21 History yqkvaecl-lcuw-ZI-lutein 8 mg iron-400 mcg-300 mcg tablet (Centrum Silver Women) apixaban 5 mg tablet (Eliquis) 5 mg PO BID 30 Days #60 tab 04/20/21 Rx furosemide 40 mg tablet (Lasix) 40 mg PO DAILY #30 tab 04/20/21 Rx metoprolol succinate 50 mg 50 mg PO DAILY #30 tab 04/20/21 Rx tablet,extended release 24 hr Patient History Medical History DM (diabetes mellitus), type 2 Hypertension Never a smoker No illicit drug use Surgical History History of section History of hip surgery Left History of hysterectomy History of total knee arthroplasty Family History Daughter Lymphoma Sister Breast cancer Brother Brain tumor Other Diabetes Family history of coronary artery disease Denies family history of Ovarian cancer Prostate cancer Myocardial infarction Colorectal cancer Social History Smoking Status: Never smoker Second Hand Exposure: No; Hx Alcohol Use: Yes Hx Substance Use: No Preferred Language: Azerbaijani Communication Ability: Effective Hearing Ability: Normal Laborer Pipeline Required: No Beliefs That Will Affect Care: None marital status: Current Living Situation: Spouse current occupational status: retired How many Children do You have: 7 Feels Safe at Home: Yes Childhood Exposure to Second-Hand Smoke: Yes caffeine: Yes Dental Care, Regularly: No Physical Activity Frequency: Does not Exercise Seatbelt Use: sometimes Sunscreen Use: No Assistive Devices: Walker Physical Exam Physical Exam: Constitutional: Alert, oriented, in no acute distress HEENT: Head is atraumatic and normocephalic. EOMs intact. Sclera anicteric. Face is symmetric. No perioral cyanosis. Mucous membranes moist. Neck: Supple, + JVD, +HJR Pulmonary: Normal respiratory effort, bibasilar crackles noted. Cardiac: Irregular rate and rhythm. Normal S1 and S2, no gallops, no rubs, no murmurs Extremities: 2+ radial pulses bilaterally. 2+ posterior tibialis pulses bilaterally. 2+ tense pitting edema. No cyanosis or clubbing. Abdomen: Normal bowel sounds, soft, non-tender, no abdominal mass palpated Skin: Normal skin color, turgor, and pigmentation, no rash, no skin lesions Neurological: Patient is awake, alert, and oriented. Pleasant and cooperative. Answers questions appropriately. Speech is clear. Normal movement in all 4 extremities. Results & Data ([facility]) Vital Signs (Past 12 Hours) Vital Signs Temp Pulse Pulse Pulse Resp BP BP 04/25/21 07:26 97.7 F 73 13 120/84 04/25/21 07:00 107 H 04/25/21 03:00 99 H 04/25/21 02:58 97.3 F L 76 18 123/84 04/24/21 22:56 97.9 F 82 18 129/81 Pulse Ox 04/25/21 07:26 92 04/25/21 07:00 04/25/21 03:00 04/25/21 02:58 94 04/24/21 22:56 91 Heart Failure Data/Metrics Heart Failure Type: Diastolic Ejection Fraction: 55-60% NYHA classification: II: Sx w/ usual activity Risk Stratification: C Implanted Cardiac Defibrillator (ICD): No Bi-V Pacemaker: No Bi-V Defibrillator: No Advanced Directives Discussed/Complete: Yes Diabetes Mellitus: No Evidenced Based Beta Leslye Therapy Beta Leslye Therapy: Not Indicated SANTOSH/ARB/ARNI Therapy SANTOSH/ARB/ARNI Therapy: Not Indicated Aldosterone Antagonist Therapy Aldosterone Antagonist Therapy: Not Indicated Coding Level of Care Code 71172 Initial Inpt Care Lvl 3 Diagnoses Acute on chronic right-sided congestive heart failure I50.813 Atrial fibrillation, new onset I48.91 Pulmonary fibrosis J84.10 Hypertension I10 Edema R60.9
--- NOTE | 2021-04-25 12:56 | Hospitalist Progress Note ---
Date of Service April 25, 2021 Assessment & Plan (1) Acute on chronic right-sided congestive heart failure: Plan: echo with RV dysfunction. 2nd to long-standing, untreated SEBAS? 2nd to underlying chronic lung disease (fibrosis)? other? still volume overloaded based on exam - cont diuresis. she has lost about 18 pounds since admission. bumex seemed to help with diuresis better than lasix. cont bumex - use 1mg BID at 9am, 5pm. labs am. control the a.fib. continue to hold SANTOSH due to soft BPs. recommended f/u with [facility] post-discharge given her CHF, a.fib, and WMA on echo. Ms Strauss with CHF clinic consulted and consult appreciated. (2) Atrial fibrillation, new onset: Plan: [id number] score 5 Cont eliquis 5mg BID Continue metoprolol tartrate - increase metoprolol to 50mg BID (3) Acid reflux disease: Plan: Cont PPI (4) Hypertension: Plan: Hold SANTOSH Hold HCTZ Cont metoprolol BPs controlled (5) DM (diabetes mellitus), type 2: Plan: A1c 7.1% this admission similar to prior A1c's BSGs ac/hs novolog SSI (6) Hyperlipidemia: Plan: not on meds for such LDL 113 this past summer (7) Hypomagnesemia: Plan: IV mag again today increase PO mag to BID repeat level am (8) DVT prophylaxis: Plan: eliquis BID (9) Pulmonary fibrosis: Plan: CT chest, noncontrast, suggests fibrosis Exam - despite aggressive diuresis - continues with "dry" rales b/l which is c/w CT findings this may explain borderline low O2 sats in RA discussed possible dx with daughter by phone patient aware of CT results 2-step at discharge pulmonary referral after d/c to see if they feel she does indeed have PF explained to daughter that if PF is truly present it is likely idiopathic pulm HTN/right heart disease could be partly due to the lung disease on CT Plan: daughter updated by phone this evening she informed me that Mr Tipton is now hospitalized PT/OT evals completed - PT advised home with home PT eval cont PT, OT discharge depends on when euvolemia is achieved Admission and Anticipated Discharge Date Admission Date: April 18, 2021 Subjective pt w/o any new complaints today a.fib rates overnight - 90s/100s pt states "I walk to the bathroom and by the time I get back I'm tired" dyspnea on exertion unchanged LE edema maybe a little better denies cough eating well Review of Systems Review of Systems: gen - no fevers, eating well CV - no orthopnea pulm - no cough/congestion GI - no N/V/constipation Physical Exam Physical Exam: gen - obese, NAD, sitting in chair comfortably neck - JVD still present heart - irregular, s1 s2, no murmur; rate 90s lungs - bibasilar rales scantly better relative to prior exam; still quite dense abd - soft NT ND BS+ ext - 1-2+ pitting edema b/l skin - venous stasis changes b/l legs unchanged Results & Data Results & Data ([facility]) Vital Signs (Past 12 Hours) Vital Signs Temp Pulse Pulse Pulse Resp BP BP 04/25/21 10:52 36.4 C L 81 14 125/84 04/25/21 07:26 36.5 C 73 13 120/84 04/25/21 07:00 107 H 04/25/21 03:00 99 H 04/25/21 02:58 36.3 C L 76 18 123/84 Pulse Ox 04/25/21 10:52 93 04/25/21 07:26 92 04/25/21 07:00 04/25/21 03:00 04/25/21 02:58 94 Laboratory Results Laboratory Results - last 24 hr 04/25/21 04/25/21 04/25/21 07:06 11:52 16:42 Sodium 142 Potassium 3.9 Chloride 102 Carbon Dioxide 32 Anion Gap 8.0 BUN 38 H Creatinine 1.09 Est Cr Clr Drug Dosing 44.2 Est GFR ( Amer) 53.2 Est GFR (Non-Af Amer) 45.9 BUN/Creatinine Ratio 34.9 H Glucose 131 H POC Glucose 140 H 188 H Calcium 8.9 Magnesium 1.7 L 04/25/21 20:35 Sodium Potassium Chloride Carbon Dioxide Anion Gap BUN Creatinine Est Cr Clr Drug Dosing Est GFR ( Amer) Est GFR (Non-Af Amer) BUN/Creatinine Ratio Glucose POC Glucose 139 H Calcium Magnesium PG Care Time/CCT Total # of Minutes Spent Total Time Spent with Patient: Total time spent is greater than 50% in coordination of care (as documented) at patient's floor/unit and/or counseling patient: Coding Level of Care Code 46632 Subseq Hosp Care Lvl 2 Diagnoses Acute on chronic right-sided congestive heart failure I50.813 Atrial fibrillation, new onset I48.91 Acid reflux disease K21.9 Hypertension I10 DM (diabetes mellitus), type 2 E11.9 Hyperlipidemia E78.5 Hypomagnesemia E83.42 DVT prophylaxis Z29.9 Pulmonary fibrosis J84.10
[2021-04-25] MEDS: METOPROLOL TARTRATE 50 MG TAB PO SCH (20:21)
[2021-04-25] MEDS: INSULIN ASPART PER UNIT SC SCH (21:24)
[2021-04-26 08:36] LABS: BUN Creatinine Ratio 33.5 (10-20); Calcium 9.5 mg/dl (8.5-10.1); Creatinine Clr Calc Pharmacy 43.5 ml/min; Est GFR (African American) 52.6 ml/min; Est GFR (Non-African American) 45.4 ml/min; Potassium 3.9 mmol/L (3.5-5.1)
[2021-04-26] MEDS ORDERED: POTASSIUM CHLORIDE CRTAB 20 MEQ TABCR PO STA (08:53)
[2021-04-26] MEDS ORDERED: BUMETANIDE 1 MG TAB PO ONE (09:00)
[2021-04-26] MEDS: INSULIN ASPART PER UNIT SC SCH ×4 (09:10→20:07)
[2021-04-26] MEDS: MAGNESIUM OXIDE 400 MG TAB PO SCH ×2 (09:20→20:06)
[2021-04-26] MEDS: APIXABAN 5 MG TABLET PO SCH ×2 (09:20→20:06)
[2021-04-26] MEDS: METOPROLOL TARTRATE 50 MG TAB PO SCH ×2 (09:20→20:06)
[2021-04-26] MEDS: PANTOprazole 40 MG TAB PO SCH (09:21)
[2021-04-26] MEDS: CEROVITE ADV FORMULA TAB PO SCH (09:21)
--- NOTE | 2021-04-26 10:09 | Heart Failure Progress Note ---
Date of Service April 26, 2021 Assessment & Plan (1) Acute on chronic right-sided congestive heart failure: (2) Atrial fibrillation, new onset: (3) Pulmonary fibrosis: (4) Hypertension: (5) Edema: Plan: Acute on chronic right heart failure: Currently NYHA Class II. Patient has no previous cardiac history or history of heart failure. She was taking HCTZ at home. She presented with classic symptoms including dyspnea, edema, and weight gain. She was hypervolemic on exam. Patient also with new onset atrial fibrillation and suspected ILD which may be contributing to her presentation. Suspect cor pulmonale/SEBAS as well. Would consider sleep medicine eval as ou tpatient. She has been responding well to IV diuretics but remains hypervolemic. She is now at her typical "dry weight" but suspect she is still volume overloaded. She would likely benefit from additional diuresis. I think this would be more effective here with another day or two of IV Bumex. Goal negative 1-2 L per day. Creatinine stable and BUN within her typical baseline. She is agreeable to close follow up with the heart failure program and will likely continue to diurese at home which is reasonable. Continue monitoring kidney function and electrolytes. Low sodium diet. Strict I&Os. Daily standing weights. Atrial fibrillation: Rate well controlled on Metoprolol. She's asymptomatic. Initiated on Eliquis 5 mg BID. Hypertension: Well controlled. Continue current regimen. Pulmonary fibrosis: Suspected on CT scan. Will need pulmonary follow as outpatient. Could be contributing to presentation and leading to RV failure. Would recommend establishing with primary vineyard worker after discharge. sees Dr. Hinojosa so I will arrange this. Disposition: Enrolled in the heart failure program. Follow up 05/01/21 at 1030. Admission and Anticipated Discharge Date Admission Date: April 18, 2021 Subjective Patient reports she's feeling well. She's sitting comfortably in the bedside chair. She feels her breathing is improving. She was able to walk to the shower this morning without difficulty. She continues to have lower extremity edema. She denies orthopnea or PND. I&Os trending towards neutral but weights continue to trend down on standing scale. 217 lb today. She denies chest pain, palpitations, lightheadedness. Physical Exam Physical Exam: Constitutional: Alert, oriented, in no acute distress HEENT: Head is atraumatic and normocephalic. EOMs intact. Sclera anicteric. Face is symmetric. No perioral cyanosis. Mucous membranes moist. Neck: Supple, + JVD, +HJR Pulmonary: Normal respiratory effort, bibasilar crackles noted. Cardiac: Irregular rate and rhythm. Normal S1 and S2, no gallops, no rubs, no murmurs Extremities: 2+ radial pulses bilaterally. 2+ posterior tibialis pulses bilaterally. 2+ tense pitting edema, R > L. No cyanosis or clubbing. Abdomen: Normal bowel sounds, soft, non-tender, no abdominal mass palpated Skin: Normal skin color, turgor, and pigmentation, no rash, no skin lesions Neurological: Patient is awake, alert, and oriented. Pleasant and cooperative. Answers questions appropriately. Speech is clear. Normal movement in all 4 extremities. Results & Data ([facility]) Vital Signs (Past 12 Hours) Vital Signs Temp Pulse Pulse Pulse Resp BP BP 04/26/21 07:37 97.9 F 87 19 148/88 H 04/26/21 04:55 84 04/26/21 02:45 97.5 F L 74 18 114/78 04/25/21 22:56 97.7 F 100 H 18 141/84 H Pulse Ox 04/26/21 07:37 91 04/26/21 04:55 04/26/21 02:45 91 04/25/21 22:56 92 PG Care Time/CCT Total # of Minutes Spent Total Time Spent with Patient: Total time spent is greater than 50% in coordination of care (as documented) at patient's floor/unit and/or counseling patient: Heart Failure Data/Metrics Heart Failure Type: Diastolic Evidenced Based Beta Leslye Therapy Beta Leslye Therapy: Not Indicated SANTOSH/ARB/ARNI Therapy SANTOSH/ARB/ARNI Therapy: Not Indicated Aldosterone Antagonist Therapy Aldosterone Antagonist Therapy: Not Indicated Coding Level of Care Code 98206 Subseq Hosp Care Lvl 3 Diagnoses Acute on chronic right-sided congestive heart failure I50.813 Atrial fibrillation, new onset I48.91 Pulmonary fibrosis J84.10 Hypertension I10 Edema R60.9
[2021-04-26] MEDS ORDERED: BUMETANIDE 1 MG in SYRINGE 0 ML IV ONE (17:30)
--- NOTE | 2021-04-26 22:53 | Hospitalist Progress Note ---
Date of Service April 26, 2021 Assessment & Plan (1) Aspiration into airway: Plan: today's lung exam, the proximity of her throat clearing/cough following lunch today, etc is concerning for aspiration she states that frequently she has cough/throat clearing following meals will ask speech to perform swallow eval (2) Acute on chronic right-sided congestive heart failure: Plan: echo with RV dysfunction. 2nd to long-standing, untreated SEBAS? 2nd to underlying chronic lung disease (fibrosis)? other? still volume overloaded based on exam - cont diuresis. bumex seemed to help with diuresis better than lasix. cont bumex - use 1mg BID at 9am, 5pm. labs am. control the a.fib. continue to hold SANTOSH due to soft BPs. recommended f[place] with [facility] [place] given her CHF, a.fib, and WMA on echo. Ms Strauss with CHF clinic consulted and consult appreciated. (3) Atrial fibrillation, new onset: Plan: [id number] score 5 Cont eliquis 5mg BID Continue metoprolol tartrate - increased metoprolol to 50mg BID yesterday Rates better w/ such (4) Acid reflux disease: Plan: Cont PPI (5) Hypertension: Plan: Hold SANTOSH Hold HCTZ Cont metoprolol BPs controlled (6) DM (diabetes mellitus), type 2: Plan: A1c 7.1% this admission similar to prior A1c's BSGs ac/hs novolog SSI (7) Hyperlipidemia: Plan: not on meds for such LDL 113 this past summer (8) Hypomagnesemia: Plan: repeat level today 2 following IV supplementation yesterday increase PO mag to BID (9) DVT prophylaxis: Plan: eliquis BID (10) Pulmonary fibrosis: Plan: CT chest, noncontrast, suggests fibrosis Exam - despite aggressive diuresis - continues with "dry" rales b/l which is c/w CT findings this may explain borderline low O2 sats in RA discussed possible dx with daughter by phone patient aware of CT results 2-step at discharge pulmonary referral after d/c to see if they feel she does indeed have PF explained to daughter that if PF is truly present it is likely idiopathic pulm HTN/right heart disease could be partly due to the lung disease on CT could some of her lung exam findings and CT findings be from aspiration? speech therapy consult appreciated Plan: PT/OT evals completed - PT advised home with home PT eval cont PT, OT discharge depends on when euvolemia is achieved Admission and Anticipated Discharge Date Admission Date: April 18, 2021 Subjective no complaints she does say today her GIBBS has improved tired with walking to and from the bathroom no cough during my visit she had just eaten lunch she had eaten her entire tray she was clearing her throat constantly she denies any dysphagia, but admits that when she eats/drinks she does throat clear alot no vomiting Review of Systems Review of Systems: gen - no fevers cv - no orthopnea or cp pulm - GIBBS remains - modestly better GI - no abd pain, n/v/d Physical Exam Physical Exam: gen - obese, NAD, sitting in chair comfortably, constantly clearing her throat neck - JVD still present heart - irregular, s1 s2, no murmur; rate 90s lungs - extensive rales b/l - worse than yesterday - with bronchial breath patrick nds in numerous locations; aspiration of lunch?? abd - soft NT ND BS+ ext - 1-2+ pitting edema b/l -improved skin - venous stasis changes b/l legs unchanged Results & Data Results & Data ([facility]) Vital Signs (Past 12 Hours) Vital Signs Temp Pulse Pulse Resp BP BP Pulse Ox 04/26/21 19:13 36.7 C 91 H 18 119/80 92 04/26/21 16:21 37.0 C 71 18 130/68 92 04/26/21 11:44 36.4 C L 83 19 144/85 H 90 Laboratory Results Laboratory Results - last 24 hr 04/26/21 04/26/21 04/26/21 07:35 07:42 11:32 Sodium 139 Potassium 3.9 Chloride 100 Carbon Dioxide 34 H Anion Gap 5.0 BUN 37 H Creatinine 1.10 Est Cr Clr Drug Dosing 43.5 Est GFR ( Amer) 52.6 Est GFR (Non-Af Amer) 45.4 BUN/Creatinine Ratio 33.5 H Glucose 137 H POC Glucose 125 H 130 H Calcium 9.5 Magnesium 2.0 04/26/21 04/26/21 16:41 20:06 Sodium Potassium Chloride Carbon Dioxide Anion Gap BUN Creatinine Est Cr Clr Drug Dosing Est GFR ( Amer) Est GFR (Non-Af Amer) BUN/Creatinine Ratio Glucose POC Glucose 125 H 154 H Calcium Magnesium PG Care Time/CCT Total # of Minutes Spent Total Time Spent with Patient: Total time spent is greater than 50% in coordination of care (as documented) at patient's floor/unit and/or counseling patient: Coding Level of Care Code 25222 Subseq Hosp Care Lvl 2 Diagnoses Acute on chronic right-sided congestive heart failure I50.813 Atrial fibrillation, new onset I48.91 Acid reflux disease K21.9 Hypertension I10 DM (diabetes mellitus), type 2 E11.9 Hyperlipidemia E78.5 Hypomagnesemia E83.42 DVT prophylaxis Z29.9 Pulmonary fibrosis J84.10 Aspiration into airway T17.908A
[2021-04-27 07:26] LABS: BUN Creatinine Ratio 34.1 (10-20); Calcium 9.3 mg/dl (8.5-10.1); Creatinine Clr Calc Pharmacy 37.9 ml/min; Est GFR (African American) 45.5 ml/min; Est GFR (Non-African American) 39.3 ml/min
[2021-04-27] MEDS: CEROVITE ADV FORMULA TAB PO SCH (07:59)
[2021-04-27] MEDS: PANTOprazole 40 MG TAB PO SCH (07:59)
[2021-04-27] MEDS: METOPROLOL TARTRATE 50 MG TAB PO SCH ×3 (07:59→20:23)
[2021-04-27] MEDS: MAGNESIUM OXIDE 400 MG TAB PO SCH ×2 (07:59→20:23)
[2021-04-27] MEDS: FERROUS SULFATE 325 MG TAB PO SCH (07:59)
[2021-04-27] MEDS: APIXABAN 5 MG TABLET PO SCH ×2 (08:00→20:23)
[2021-04-27] MEDS: BUMETANIDE 1 MG TAB PO SCH (09:02)
[2021-04-27] MEDS: INSULIN ASPART PER UNIT SC SCH ×4 (09:34→20:44)
--- NOTE | 2021-04-27 13:08 | Fluoroscopy Report ---
FL barium swallow CLINICAL HISTORY: r/o esophageal dysfunction TECHNIQUE: The patient was observed drinking thick and thin barium under fluoroscopic observation in both the upright and recumbent positions. Total fluoroscopy time: 1.4 minutes. COMPARISON: None available at the time of this dictation. FINDINGS: The patient had no problem initiating the swallowing mechanism. There was no evidence of aspiration. Mild dysphagia is seen. There was no evidence of strictures, filling defects, or outpouchings. Contrast flowed readily from t he esophagus into the stomach. There is a hiatal hernia and reflux is seen. A 13 mm pill was ingested by the patient. This passed through the esophagus and into the stomach with out any evidence of holdup. IMPRESSION: Dysphagia and a hiatal hernia with reflux noted. ACT 112: Negative or not required by law. Electronically signed by: Enzo Solorzano M.D. 04/27/2021 1:07 PM
--- NOTE | 2021-04-27 14:52 | Heart Failure Progress Note ---
Date of Service April 27, 2021 Assessment & Plan (1) Acute on chronic right-sided congestive heart failure: (2) Atrial fibrillation, new onset: (3) Pulmonary fibrosis: (4) Hypertension: (5) Edema: Plan: Acute on chronic right heart failure: Currently NYHA Class II. Patient has no previous cardiac history or history of heart failure. She was taking HCTZ at home. She presented with classic symptoms including dyspnea, edema, and weight gain. She was hypervolemic on exam. Patient also with new onset atrial fibrillation and suspected ILD which may be contributing to her presentation. Suspect cor pulmonale/SEBAS as well. Would consider sleep medicine eval as ou tpatient. She has been responding well to IV diuretics but remains hypervolemic. She is now below her typical "dry weight" but suspect she is still volume overloaded. Creatinine bumping up today. Converted to PO Bumex. Would recommend Bumex 1 mg BID on discharge with the goal of ongoing diuresis. She is agreeable to close follow up with the heart failure program and will likely continue to diurese at home which is reasonable. Continue monitoring kidney function and electrolytes. Low sodium diet. Strict I&Os. Daily standing weights. Atrial fibrillation: Rate well controlled on Metoprolol. She's asymptomatic. Initiated on Eliquis 5 mg BID. Hypertension: Well controlled. Continue current regimen. Pulmonary fibrosis: Suspected on CT scan. Will need pulmonary follow as outpatient. Could be contributing to presentation and leading to RV failure. Would recommend establishing with primary overnight associate after discharge. sees Dr. Hinojosa so I will arrange this. Disposition: Enrolled in the heart failure program. Follow up 05/01/21 at 1030. Admission and Anticipated Discharge Date Admission Date: April 18, 2021 Subjective Patient reports she's feeling well. She's sitting comfortably in the bedside chair eating lunch. She feels her breathing is improving. She continues to have lower extremity edema. She denies orthopnea or PND. I&Os trending towards neutral but weights continue to trend down on standing scale. 210 lb today. She denies chest pain, palpitations, lightheadedness. BUN/Cr up slightly today. Converted to PO Bumex 1 mg daily. Physical Exam Physical Exam: Constitutional: Alert, oriented, in no acute distress HEENT: Head is atraumatic and normocephalic. EOMs intact. Sclera anicteric. Face is symmetric. No perioral cyanosis. Mucous membranes moist. Neck: Supple, + JVD, - HJR Pulmonary: Normal respiratory effort, bibasilar crackles noted. Cardiac: Irregular rate and rhythm. Normal S1 and S2, no gallops, no rubs, no murmurs Extremities: 2+ radial pulses bilaterally. 2+ posterior tibialis pulses bilaterally. 2+ tense pitting edema, R > L. No cyanosis or clubbing. Abdomen: Normal bowel sounds, soft, non-tender, no abdominal mass palpated Skin: Normal skin color, turgor, and pigmentation, no rash, no skin lesions Neurological: Patient is awake, alert, and oriented. Pleasant and cooperative. Answers questions appropriately. Speech is clear. Normal movement in all 4 extremities. Results & Data ([facility]) Vital Signs (Past 12 Hours) Vital Signs Temp Pulse Pulse Pulse Pulse Pulse Pulse 04/27/21 10:56 98.1 F 63 04/27/21 08:37 124 H 100 H 88 95 H 04/27/21 08:08 97.5 F L 83 04/27/21 07:00 70 Resp Resp Resp Resp Resp BP Pulse Ox 04/27/21 10:56 20 119/69 97 04/27/21 08:37 20 20 18 18 04/27/21 08:08 16 128/81 92 04/27/21 07:00 Pulse Ox Pulse Ox Pulse Ox Pulse Ox 04/27/21 10:56 04/27/21 08:37 91 85 L 92 94 04/27/21 08:08 04/27/21 07:00 PG Care Time/CCT Total # of Minutes Spent Total Time Spent with Patient: Total time spent is greater than 50% in coordination of care (as documented) at patient's floor/unit and/or counseling patient: Heart Failure Data/Metrics Heart Failure Type: Diastolic Evidenced Based Beta Leslye Therapy Beta Leslye Therapy: Not Indicated SANTOSH/ARB/ARNI Therapy SANTOSH/ARB/ARNI Therapy: Not Indicated Aldosterone Antagonist Therapy Aldosterone Antagonist Therapy: Not Indicated Coding Level of Care Code 34586 Subseq Hosp Care Lvl 3 Diagnoses Acute on chronic right-sided congestive heart failure I50.813 Atrial fibrillation, new onset I48.91 Pulmonary fibrosis J84.10 Hypertension I10 Edema R60.9
[2021-04-27] MEDS ORDERED: BUMETANIDE 1 MG TAB PO ONE (18:07)
--- NOTE | 2021-04-27 22:22 | Hospitalist Progress Note ---
Date of Service April 27, 2021 Assessment & Plan (1) Acute on chronic right-sided congestive heart failure: Plan: MUCH improved. 25+ pounds of weight loss since admission. Creatinine and CO2 levels on BMP slightly higher today than previous and JVD resolved suggesting we are approaching or we have arrived at euvolemia, echo with RV dysfunction. 2nd to long-standing, untreated SEBAS? 2nd to underlying chronic lung disease (fibrosis)? other? continue metoprolol - convert to succinate 50mg once daily. cont bumex - use 1mg BID at 9am, 5pm. labs am. continue to hold SANTOSH due to soft BPs. recommended f/u with [facility] post[place] given her CHF, a.fib, and WMA on echo. Ms Strauss with CHF clinic consulted and consult appreciated. has f/u with her on 05/01/21. CHF instructions included in d/c packet. (2) Atrial fibrillation, new onset: Plan: [id number] score 5 Cont eliquis 5mg BID - script sent to pharmacy for her Continue metoprolol tartrate 50mg BID - rates controlled w/ such Convert to metoprolol succinate 50mg once daily at d/c (3) Pulmonary fibrosis: Plan: CT chest, noncontrast, suggests fibrosis Exam - despite aggressive diuresis - continues with "dry" rales b/l which is c/w CT findings this may explain borderline low O2 sats in RA at rest and hypoxia w/ walking as confirmed on "2-step" test today pulmonary referral after d/c to obtain their opinion about ? of PF explained to daughter that if PF is truly present it is likely idiopathic pulm HTN/right heart disease could be partly due to the lung disease on CT (4) Acid reflux disease: Plan: Cont PPI but increase omeprazole to 40mg once daily at d/c Script sent to pharmacy for her Barium swallow today showed hiatal hernia and reflux (5) Hypertension: Plan: d/c SANTOSH and HCTZ at discharge Cont metoprolol BPs controlled (6) DM (diabetes mellitus), type 2: Plan: A1c 7.1% this admission similar to prior A1c's BSGs ac/hs novolog SSI while here but doesn't take meds at home (7) Hyperlipidemia: Plan: not on meds for such LDL 113 this past summer (8) Hypomagnesemia: Plan: 2nd to diuresis replaced and now normal continue mag oxide - send home with such (9) DVT prophylaxis: Plan: eliquis BID (10) Aspiration into airway: Plan: ruled out I was concerned about patient aspirating given the events of yesterday (see my progress note dated 04/26) speech saw in consult barium swallow performed has hiatal hernia & GERD but did not aspirate -- video swallow test not needed reflux precautions advised by speech consider outpatient GI f/u increase PPI as noted above Plan: PT/OT evals completed - PT advised home with home PT cont PT, OT daughter updated by phone today pt's is hospitalized at [facility] daughter states they can take patient home on Sat, 04/28 O2 has been set up scripts sent to pharmacy CHF instructions given f/u appts are set Admission and Anticipated Discharge Date Admission Date: April 18, 2021 Subjective tele overnight - a.fib rates 70s-90s; no pauses, no bradycardia mild tachycardia to the low 100s w/ activity patient feeling well dyspnea with walking much better than at admission during her 2-step oxygen test she was a little winded towards the end needs 2 liters NC O2 with walking/ambulation eating well sleeping ok Review of Systems Review of Systems: gen - fatigue improved cv - no orthopnea, no chest pain pulm - no cough/congestion or dyspnea at rest GI - no N/V/pain Physical Exam Physical Exam: gen - obese, NAD, sitting in chair comfortably, looks great neck - JVD resolved heart - irregular, regular rate ,s1 s2, no murmur lungs - extensive rales b/l - no change from multiple prior exams abd - soft NT ND BS+ ext - 1+ pitting edema b/l skin - venous stasis changes b/l legs unchanged psych - a/o x 3 Results & Data Results & Data ([facility]) Vital Signs (Past 12 Hours) Vital Signs Temp Pulse Pulse Pulse Resp BP BP 04/27/21 19:27 36.4 C L 75 18 129/80 04/27/21 15:24 36.6 C 90 20 129/80 04/27/21 15:00 88 04/27/21 10:56 36.7 C 63 20 119/69 Pulse Ox 04/27/21 19:27 90 04/27/21 15:24 90 04/27/21 15:00 04/27/21 10:56 97 Laboratory Results Laboratory Results - last 24 hr 04/27/21 04/27/21 04/27/21 06:47 07:22 11:34 Sodium 138 Potassium 4.0 Chloride 101 Carbon Dioxide 34 H Anion Gap 3.0 BUN 42 H Creatinine 1.24 H Est Cr Clr Drug Dosing 37.9 Est GFR ( Amer) 45.5 Est GFR (Non-Af Amer) 39.3 BUN/Creatinine Ratio 34.1 H Glucose 135 H POC Glucose 114 H 115 H Calcium 9.3 04/27/21 04/27/21 16:17 19:54 Sodium Potassium Chloride Carbon Dioxide Anion Gap BUN Creatinine Est Cr Clr Drug Dosing Est GFR ( Amer) Est GFR (Non-Af Amer) BUN/Creatinine Ratio Glucose POC Glucose 224 H 142 H Calcium Diagnostic Findings Barium Swallow X-Ray 04/27/21 12:30 FL barium swallow CLINICAL HISTORY: r/o esophageal dysfunction TECHNIQUE: The patient was observed drinking thick and thin barium under fluoroscopic observation in both the upright and recumbent positions. Total fluoroscopy time: 1.4 minutes. COMPARISON: None available at the time of this dictation. FINDINGS: The patient had no problem initiating the swallowing mechanism. There was no evidence of aspiration. Mild dysphagia is seen. There was no evidence of strictures, filling defects, or outpouchings. Contrast flowed readily from the esophagus into the stomach. There is a hiatal hernia and reflux is seen. A 13 mm pill was ingested by the patient. This passed through the esophagus and into the stomach without any evidence of holdup. IMPRESSION: Dysphagia and a hiatal hernia with reflux noted. ACT 112: Negative or not required by law. Electronically signed by: Enzo Solorzano M.D. 04/27/2021 1:07 PM PG Care Time/CCT Total # of Minutes Spent Total Time Spent with Patient: Total time spent is greater than 50% in coordination of care (as documented) at patient's floor/unit and/or counseling patient: Coding Level of Care Code 69309 Subseq Hosp Care Lvl 3 Diagnoses Aspiration into airway T17.908A Acute on chronic right-sided congestive heart failure I50.813 Atrial fibrillation, new onset I48.91 Acid reflux disease K21.9 Hypertension I10 DM (diabetes mellitus), type 2 E11.9 Hyperlipidemia E78.5 Hypomagnesemia E83.42 DVT prophylaxis Z29.9 Pulmonary fibrosis J84.10
[2021-04-28] MEDS: APIXABAN 5 MG TABLET PO SCH (07:58)
[2021-04-28] MEDS: MAGNESIUM OXIDE 400 MG TAB PO SCH (07:59)
[2021-04-28] MEDS: BUMETANIDE 1 MG TAB PO SCH (07:59)
[2021-04-28] MEDS: CEROVITE ADV FORMULA TAB PO SCH (07:59)
[2021-04-28] MEDS: METOPROLOL TARTRATE 50 MG TAB PO SCH (07:59)
[2021-04-28] MEDS: PANTOprazole 40 MG TAB PO SCH (07:59)
[2021-04-28] MEDS: INSULIN ASPART PER UNIT SC SCH ×2 (08:03→12:33)
--- NOTE | 2021-04-28 13:10 | Discharge Summary ---
Date of Service April 28, 2021 Admission HPI Per Admitting Provider Nunu Tipton is an 85 year old female who presents to the ER with shortness of breath and leg swelling. She reports this has been getting progressively worse over the last 3-4 weeks. Shortness of breath mainly on minimal exertion. Associated weight gain. No high salt or change in her diet. No cough, fever or chills. No chest pain, orthopnea, PND, claudication or palpitations. No fever, chills or cough. She has no history of FL, stroke, atrial fibrillation or CHF in the past. In the ER she was noted to be in atrial fibrillation with rate 80-90, CXR concerning for pulmonary edema. She was referred to medicine for admission and ongoing management of CHF and new onset atrial fibrillation. Principal Diagnosis CHF - see "hospital course" Discharge Exam gen aao pleasant nad heent nc at mmm lungs scattered rales but good air entry no accessory muscles breathing comfortably on room air no focal neuro deficits Discharge Data Allergies Allergy/AdvReac Type Severity Reaction Status Date / Time Sulfa (Sulfonamide Allergy Unknown Unknown Verified 04/18/21 17:04 Antibiotics) Consultations 04/18/21 17:00 ED Decision to Admit Stat 04/24/21 08:23 [facility] CHF Program Referral Routine Ordered Studies 04/23/21 13:35 CT chest diagnostic wo con Routine 04/27/21 12:30 [place] barium swallow Routine Hospital Course (1) Acute on chronic right-sided congestive heart failure: MUCH improved. 25+ pounds of weight loss since admission. Creatinine and CO2 levels on BMP slightly higher today than previous and JVD resolved suggesting we are approaching or we have arrived at euvolemia, echo with RV dysfunction. 2nd to long-standing, untreated SEBAS? 2nd to underlying chronic lung disease (fibrosis)? other? continue metoprolol - convert to succinate 50mg once daily. cont bumex - use 1mg BID at 9am, 5pm. labs as outpt. recommended f/u with [facility] Cardiology post-discharge given her CHF, a.fib, and WMA on echo. Ms Strauss with CHF clinic consulted and consult appreciated. has f/u with her on 05/01/21. CHF instructions included in d/c packet. (2) Atrial fibrillation, new onset: [id number] score 5 Cont eliquis 5mg BID - script sent to pharmacy for her Continue metoprolol (3) Pulmonary fibrosis: CT chest, noncontrast, suggests fibrosis Exam - despite aggressive diuresis - continues with "dry" rales b/l which is c/w CT findings this may explain borderline low O2 sats in RA at rest and hypoxia w/ walking as confirmed on "2-step" test - home O2 set up pulmonary referral after d/c to obtain their opinion about ? of PF explained to daughter that if PF is truly present it is likely idiopathic pulm HTN/right heart disease could be partly due to the lung disease on CT (4) Acid reflux disease: Cont PPI but increase omeprazole to 40mg once daily at d/c Script sent to pharmacy for her Barium swallow 04/27 showed hiatal hernia and reflux (5) Hypertension: d/c SANTOSH and HCTZ at discharge Cont metoprolol BPs controlled (6) DM (diabetes mellitus), type 2: A1c 7.1% this admission similar to prior A1c's BSGs ac/hs novolog SSI while here but doesn't take meds at home (7) Hyperlipidemia: not on meds for such LDL 113 this past summer (8) Hypomagnesemia: 2nd to diuresis replaced and now normal continue mag oxide - send home with such (9) DVT prophylaxis: eliquis BID (10) Aspiration into airway: ruled out speech saw in consult barium swallow performed has hiatal hernia & GERD but did not aspirate -- video swallow test not needed reflux precautions advised by speech consider outpatient GI f/u PT/OT evals completed - PT advised home with home PT safe for home - d/c home today Total Time Total Time Spent Total Time Spent (In Minutes): <30 Discharge Plan Discharge Items Patient Disposition: Home - Home Health Services Reason For Visit: SOB, SWOLLEN LEGS, TIRED Discharge Diagnosis: 1. right-sided congestive heart failure with fluid retention - improved; loss of 25+ pounds while here 2. atrial fibrillation 3. question of fibrosis of lungs based on CT of the lungs - follow-up needed 4. need for home oxygen, 2 liters, with activity 5. hiatal hernia and gastroesophageal reflux Activity: Resume your previous activity Non-emergency contact: Primary Care Provider and Urban Anthropologist Call non-emergency contact if: you have any medication questions and your symptoms worsen Follow-up/Referrals: Lee Sandoval MD [Physician] - 05/25/21 3:15 pm (If you have any questions, please call [phone].) Todd France DO [Primary Care Provider] - 05/09/21 11:30 am (If you have any questions or need to change this appointment, please call [phone].) Coby Strauss PA-C [Physician Commercial Real Estate Sales Manager] - 05/01/21 10:30 am Diet: Carb Consistent or DM2 and Heart Healthy Fluids: 1800ml (7 cups) Addtl Attending Provider Instructions: see below Addtl Batch Mixing Truck Driver Provider Instructions: Congestive Heart Failure Instructions: Call 911 and go to the Emergency Room if: * You have tightness or pain in your chest that does not go away with rest or Nitroglycerin * You are very short of breath even with rest Call your doctor if any of the following symptoms or problems start or get worse: * Shortness of breath or difficulty breathing * Wake up at night short of breath * Chest pain * Cough * Swelling of your hands, fee, or legs * More fatigued or tired with your normal activity * Palpitations - sudden fast heart beats WEIGHT * Weigh yourself every morning after using the bathroom. * Use the same scale. * Wear the same amount of clothing. * Write your weight down on your chart. * Call your doctor if you gain more than 2-3 pounds in 1-2 days. This is typically a sign of fluid/water weight gain from your congestive heart failure. Don't wait - call right away if you see these weight gains. MEDICATIONS * Use this discharge instruction sheet for instructions. * Take your medications at the time your doctor ordered. * Do not skip a dose of your medicines. * If you miss a dose of medicine, take as soon as possible, but DO NOT DOUBLE A DOSE. * Read your medicine information when you get home. * Know all of the side effects of your medicine. * Call your doctor's office if you have any side effects. * Be sure all of your doctors know what medicine and herbs you take (including cold, flu, and herbal medicine). * Pain Medicine: If you do not get relief from your pain, please call your doctor for help. Take the following with you to your follow-up doctor appointments: * Weight Chart * Medication List * List of questions Do not drink excessive alcohol, beer or wine. Pending Studies at Discharge: No Stand-Alone Forms: [facility] Tiqets, Smoking Cessation Medications and DC Order Prescriptions: New Eliquis 5 mg Tablet 5 mg PO BID 30 Days Qty: 60 RF: 0 metoprolol succinate 50 mg tablet extended release 24 hr 50 mg PO DAILY Qty: 30 RF: 0 (DME) Oxygen Home Liters Per Minute See Rx Instructions .ROUTE .MEDSUPPLY Qty: 1 RF: 0 bumetanide 1 mg Tablet 1 mg PO BID Qty: 60 RF: 2 magnesium oxide 400 mg (241.3 mg magnesium) Tablet 400 mg PO DAILY Qty: 30 RF: 2 Continued ferrous fumarate 324 mg (106 mg iron) tablet 324 mg PO 2XWK Qty: 30 RF: 0 Centrum Silver Women 8 mg iron-400 mcg-300 mcg Tablet 1 tab PO DAILY RF: 0 Changed omeprazole 40 mg capsule,delayed release(DR/EC) 40 mg PO QAM Qty: 30 RF: 2 Discontinued lisinopril 10 mg tablet 10 mg PO DAILY Qty: 90 RF: 3 hydrochlorothiazide 50 mg tablet 50 mg PO DAILY Qty: 90 RF: 3 Discharge Orders: Discharge Order (Routine); Ordered 04/28/21 Ordered By: Quang Scales/Other Patient Handouts: High Blood Sugar (Hyperglycemia), Managing Type 2 Diabetes, 5 Steps for Eating Healthier, Understanding Atrial Fibrillation, Tracking Symptoms of Heart Failure Admission Data Admit Date/Time: 04/18/21 16:50 Attending Provider: Quang Hope Admit Provider: Yung Lucas Primary Care Provider: Todd France Other Providers: Yung Lucas ; Coby Strauss ; Paty Tim Other Interventions: Discharge Summary Assessment (RN) Last Done: 04/28/21 12:43 Coding Level of Care Code D/C DAY MANAGEMENT <30 MINS Diagnoses Acute on chronic right-sided congestive heart failure I50.813 Atrial fibrillation, new onset I48.91 Pulmonary fibrosis J84.10 Acid reflux disease K21.9 Hypertension I10 DM (diabetes mellitus), type 2 E11.9 Hyperlipidemia E78.5 Hypomagnesemia E83.42 DVT prophylaxis Z29.9 Aspiration into airway T17.908A
== END 2021-04-28 14:56 | disposition home health service (06) | DRG 291 ==
LOC: ED 13:01 → SUATTDRO 16:50 → EDINP 16:50 → 2N 22:22

== ENCOUNTER 2021-06-24 16:11 | Inpatient (IN) ==
[2021-06-24] MEDS ORDERED: SODIUM CHLORIDE 0.9% 500 ML IV ONE (17:10)
--- NOTE | 2021-06-24 17:14 | Emergency Department Note ---
Impression & Plan Generalized weakness, Bacteria in urine, Ambulatory dysfunction ED Provider Note Name: NATY WORKMAN Age: 85 Sex: F Arrives Via: Ambulance Informant: Patient, daughter ED Provider: Wilber Florence MD Chief Complaint: Weakness Impression: As per impressions above Medical Decision Makin-year-old female with extensive past medical history lives with her and they both essentially take care of each other. Over the last 2 to 3 days worsening weakness. She has gotten the point where she can even ambulate to the bathroom and was essentially unable to get up from the floor this morning. Work-up reveals bacteria in the urine but otherwise is benign. Given the degree of weakness and UTI it does seem reasonable to give her IV antibiotics and shou ld not be discharged in the state hospitalist was consulted. Patient does not appear septic nor is she in significant distress at this time. I do not feel this is consistent with stroke or other emergent neurologic issue at this time either. Prior Medical Record and Triage/Nursing Notes reviewed by Me Additional history obtained from chart Differentials:Infection, dehydration, metabolic abnormality, hypo/hyperglycemia, electrolyte disturbance, anemia, hypoxia, cardiac sources, intracerebral event, toxicologic, neurologic, as well as other pathologies. Vital Signs: reviewed and remarkable for no significant abnormalities Interventions: nss bolus, rocephin 1gm iv Labs:Reviewed and remarkable for bacteria in urine Imaging:See Below EKG:Per My Interpretation: Indication weakness: afib 70 bpm, qtc 453. No Ect opy. No Ischemia. Compared to EKG 04/18/21, no significant changes. Cardiac/Tele Monitoring: Cardiac Monitoring: An Order was placed for continuous cardiac monitoring. The monitor shows a rate of 80 with a afib rhythm. Consults:hospitalist Plan: Disposition:Hospitalization. Condition: Good History of Present Illness:85-year-old female arrives for evaluation of weakness. Patient with long history of generalized weakness and ambulatory dysfunction. She notes last 2 to 3 days her weakness is rapidly worsened. She states she just has no strength in her legs or arms. After going to the bathroom she notes she just slid to the floor because she just could not bear her weight. Due to inability to get up no known was called. She was brought to the ER for further evaluation. Patient denies any injuries. She denies any recent headaches, neck pain, focal weakness, shortness of breath, chest pain, abdominal pain, urinary/bowel symptoms, increasing leg swelling, weight gain, rashes or other symptoms. She has not had any episodes of syncope. No medications prior to arrival. Exertion makes worse rest makes better. She states she lives at home with her and about take care of each other. He is unable to take care of her if she is this week. Patient was recently hospitalized for fluid overload and had 30 pounds of "water" removed at that time. She states she had been doing better until this recent last 2 to 3 days. ROS: See above HPI for pertinent positives & negatives. A total of 10 systems reviewed and were otherwise negative. Past Medical History:See Below Past Surgical History:See Below Family History:See Below Social History:See Below Home Medications:See Below Allergies:Sulfa Vitals:Blood Pressure: 97/67, Pulse 64, RR 14, T 36.8C, O2 94% on RA Physical Exam: GENERAL: Patient is weak appearing and in mild distress. EYES: No scleral icterus, unremarkable pupils. ENT: Mucous membranes dry, no nasal congestion. NECK: No masses appreciated, nomeningismus, trachea is midline. RESPIRATORY: No dyspnea. Clear to auscultation and equal bilaterally. Mild wheeze, no rhonchi. CARDIOVASCULAR: Regular rate and rhythm.No murmurs, rubs, gallops appreciated. GASTROINTESTINAL: Abdomen soft, non-tender, no peritonitis.Bowel sounds positive.No masses appreciated. BACK: No midline tenderness, no CVA tenderness EXTREMITIES: Normal motion all extremities, no cyanosis, bilateral leg edema with mild erythema venous stasis NEUROLOGIC: Alert and oriented, no acute motor or sensory deficits, no focal weakness, cranial nerves grossly intact. SKIN: No rash, no jaundice, no diaphoresis. PSYCH: Appropriate GCS: 15 ED Course: Times/Reassessments: BP has improved though patient too weak to get up and ambulate Wilber Florence MD Past Med/Surg History Medical History Acid reflux disease Edema Never a smoker No illicit drug use Surgical History History of section History of hip surgery Left History of hysterectomy History of total knee arthroplasty Family History Daughter Lymphoma Sister Breast cancer Brother Brain tumor Other Diabetes Family history of coronary artery disease Denies family history of Ovarian cancer Prostate cancer Myocardial infarction Colorectal cancer Social History Smoking Status: Never smoker Second Hand Exposure: No; Hx Alcohol Use: Yes Alcohol type: wine Hx Substance Use: No Preferred Language: [place] Communication Ability: Effective Hearing Ability: Normal Spooling Operator Required: No Beliefs That Will Affect Care: None marital status: Current Living Situation: Spouse current occupational status: retired How many Children do You have: 7 Other Information That Helps Us Care for You: No Feels Safe at Home: Yes Safety Concerns: Feels Safe At This Time Childhood Exposure to Second-Hand Smoke: Yes caffeine: Yes Dental Care, Regularly: No Physical Activity Frequency: Does not Exercise Seatbelt Use: never Sunscreen Use: No Assistive Devices: Walker Allergies Allergies Allergy/AdvReac Type Severity Reaction Status Date / Time Sulfa (Sulfonamide Allergy Unknown Unknown Verified 06/24/21 18:07 Antibiotics) Home Meds Home Medications Medication Instructions Recorded Confirmed ferrous fumarate 324 mg (106 mg 324 mg PO 2XWK #30 tab 12/26/18 06/24/21 iron) tablet multivit with 1 tab PO DAILY 04/18/21 06/24/21 [id number] 8 mg iron-400 mcg-300 mcg tablet (Centrum Silver Women) Previous Rx's Medication Instructions Recorded Oxygen Home #1 ea 04/27/21 metoprolol succinate 50 mg 50 mg PO DAILY #30 tab 05/22/21 tablet,extended release 24 hr apixaban 5 mg tablet 5 mg PO BID #180 tab 05/30/21 bumetanide 1 mg tablet 1 mg PO BID #180 tab 06/01/21 magnesium oxide 400 mg (241.3 mg 400 mg PO DAILY #90 tab 06/01/21 magnesium) tablet omeprazole 20 mg capsule,delayed 20 mg PO DAILY #90 cap 06/01/21 release Results & Data (ED) Vital Signs Vital Signs - 24 hr 06/24/21 16:43 06/24/21 18:22 06/24/21 20:00 Pulse Rate Pulse Rate [Left Radial] 64 67 60 Pulse Rhythm [Left Radial] Regular Regular Regular Pulse Strength [Left Radial] Normal Normal Normal Respiratory Rate 14 14 14 Respiratory Effort / Characteristics Non-Labored Non-Labored Respiratory Depth Normal Normal Respiratory Pattern Regular Regular Blood Pressure Blood Pressure [Left Arm] 97/67 L 136/74 Blood Pressure Mean [Left Arm] 77 94 Blood Pressure Position [Left Arm] Lying Lying Pulse Oximetry 94 98 98 Oxygen Delivery Method Room Air Room Air Room Air 06/24/21 20:04 Pulse Rate 60 Pulse Rate [Left Radial] Pulse Rhythm [Left Radial] Pulse Strength [Left Radial] Respiratory Rate 14 Respiratory Effort / Characteristics Respiratory Depth Respiratory Pattern Blood Pressure 136/77 Blood Pressure [Left Arm] Blood Pressure Mean [Left Arm] Blood Pressure Position [Left Arm] Pulse Oximetry 98 Oxygen Delivery Method Room Air Laboratory Data Result diagrams: 06/25/21 06:35 06/25/21 06:35 Lab Results 06/24/21 06/24/21 06/24/21 Range/Units 17:25 17:25 17:25 WBC 8.56 (4.8-10.8) K/uL RBC 4.55 (4.2-5.4) M/uL Hgb 14.4 (12.0-16.0) g/dL Hct 45.2 (37-47) % MCV 99.3 (80-100) fL MCH 31.6 (25-34) pg MCHC 31.9 L (32-36) g/dL RDW Std Deviation 57.9 H (36.4-46.3) fL RDW Coeff of Stephania 16.0 H (11.5-14.5) % Plt Count 185 (130-400) K/uL MPV 10.4 (7.4-10.4) fL Immature Gran % (Auto) 0.4 % Neut % (Auto) 62.5 % Lymph % (Auto) 25.8 % Spencer % (Auto) 10.3 % Eos % (Auto) 0.8 % Baso % (Auto) 0.2 % Neut # (Auto) 5.35 (1.4-6.5) K/uL Lymph # (Auto) 2.21 (1.2-3.4) K/uL Spencer # (Auto) 0.88 H (0.11-0.59) K/uL Eos # (Auto) 0.07 (0-0.5) K/uL Baso # (Auto) 0.02 (0-0.2) K/uL Immature Gran # (Auto) 0.03 H (0.00-0.02) K/uL Sodium 138 (136-145) mmol/L Potassium 4.2 (3.5-5.1) mmol/L Chloride 100 (98-107) mmol/L Carbon Dioxide 31 (21-32) mmol/L Anion Gap 7 (3-11) BUN 36 H (6-23) mg/dl Creatinine 1.13 (0.6-1.2) mg/dl Est Cr Clr Drug Dosing 41.6 ml/min Est GFR ( Amer) 51.0 ml/min Est GFR (Non-Af Amer) 44.0 ml/min BUN/Creatinine Ratio 31.9 H (10-20) Glucose 139 H (70-99(Fasting)) mg/dl Calcium 9.3 (8.5-10.1) mg/dl Magnesium 2.0 (1.7-2.4) mg/dl Total Bilirubin 0.6 (0.2-1.0) mg/dl Direct Bilirubin 0.1 (0-0.2) mg/dl AST 26 (13-39) U/L ALT 19 (7-52) U/L Alkaline Phosphatase 83 (34-104) U/L Troponin I < 0.03 (0-0.04) ng/ml Total Protein 6.6 (6.0-8.3) gm/dl Albumin 3.9 (3.4-5.0) gm/dl Urine Color Urine Appearance (Clear) Urine pH (4.5-7.5) Ur Specific [place] (1.000-1.030) Urine Protein (Negative) Urine Glucose (UA) (Negative) Urine Ketones (Negative) Urine Blood (Negative) Urine Nitrite (Negative) Urine Bilirubin (Negative) Urine Urobilinogen (Negative) Ur Leukocyte Esterase (Negative) Urine WBC (Auto) (0-5) /hpf Urine RBC (Auto) (0-4) /hpf U Hyaline Cast (Auto) (0-5) /lpf U Epithel Cells (Auto) (0-5) /lpf Urine Bacteria (Auto) (Negative) SARS-CoV-2, RNA, NAAT NEGATIVE (NEGATIVE) 06/24/21 Range/Units 18:20 WBC (4.8-10.8) K/uL RBC (4.2-5.4) M/uL Hgb (12.0-16.0) g/dL Hct (37-47) % MCV (80-100) fL MCH (25-34) pg MCHC (32-36) g/dL RDW Std Deviation (36.4-46.3) fL RDW Coeff of Stephania (11.5-14.5) % Plt Count (130-400) K/uL MPV (7.4-10.4) fL Immature Gran % (Auto) % Neut % (Auto) % Lymph % (Auto) % Spencer % (Auto) % Eos % (Auto) % Baso % (Auto) % Neut # (Auto) (1.4-6.5) K/uL Lymph # (Auto) (1.2-3.4) K/uL Spencer # (Auto) (0.11-0.59) K/uL Eos # (Auto) (0-0.5) K/uL Baso # (Auto) (0-0.2) K/uL Immature Gran # (Auto) (0.00-0.02) K/uL Sodium (136-145) mmol/L Potassium (3.5-5.1) mmol/L Chloride (98-107) mmol/L Carbon Dioxide (21-32) mmol/L Anion Gap (3-11) BUN (6-23) mg/dl Creatinine (0.6-1.2) mg/dl Est Cr Clr Drug Dosing ml/min Est GFR ( Amer) ml/min Est GFR (Non-Af Amer) ml/min BUN/Creatinine Ratio (10-20) Glucose (70-99(Fasting)) mg/dl Calcium (8.5-10.1) mg/dl Magnesium (1.7-2.4) mg/dl Total Bilirubin (0.2-1.0) mg/dl Direct Bilirubin (0-0.2) mg/dl AST (13-39) U/L ALT (7-52) U/L Alkaline Phosphatase (34-104) U/L Troponin I (0-0.04) ng/ml Total Protein (6.0-8.3) gm/dl Albumin (3.4-5.0) gm/dl Urine Color Yellow Urine Appearance Clear (Clear) Urine pH 5.0 (4.5-7.5) Ur Specific [place] 1.013 (1.000-1.030) Urine Protein Negative (Negative) Urine Glucose (UA) Negative (Negative) Urine Ketones Negative (Negative) Urine Blood Negative (Negative) Urine Nitrite Positive A (Negative) Urine Bilirubin Negative (Negative) Urine Urobilinogen Negative (Negative) Ur Leukocyte Esterase Negative (Negative) Urine WBC (Auto) 1-5 (0-5) /hpf Urine RBC (Auto) 0-4 (0-4) /hpf U Hyaline Cast (Auto) 0 (0-5) /lpf U Epithel Cells (Auto) 5-10 H (0-5) /lpf Urine Bacteria (Auto) 4+ H (Negative) SARS-CoV-2, RNA, NAAT (NEGATIVE) Administered Medications Apixaban (Apixaban 5 Mg Tablet) 5 mg PO BID SAULO Stop: 07/24/21 20:59 Last Admin: 06/25/21 08:27 Dose: 5 mg Documented by: [id number] Admin: 06/24/21 21:39 Dose: 5 mg Documented by: [id number] Metoprolol Succinate (Metoprolol Succ 50mg Ext Rel Tab) 50 mg PO DAILY SAULO Stop: 07/25/21 08:59 Last Admin: 06/25/21 08:27 Dose: 50 mg Documented by: [id number] Pantoprazole Sodium (Pantoprazole 40 Mg Tab) 40 mg PO DAILY SAULO Stop: 07/25/21 08:59 Last Admin: 06/25/21 08:28 Dose: 40 mg Documented by: [id number] Discontinued Medications Sodium Chloride (Nss) 500 mls @ 999 mls/hr IV .Q31M ONE Stop: 06/24/21 17:40 Last Infusion: 06/24/21 18:06 Dose: 0 mls/hr Documented by: [id number] Admin: 06/24/21 17:33 Dose: 999 mls/hr Documented by: [id number] Ceftriaxone Sodium (Rocephin) 2,000 mg in 70 mls @ 140 mls/hr IV NOW STA Stop: 06/24/21 19:12 Last Infusion: 06/24/21 19:28 Dose: 0 mls/hr Documented by: [id number] Admin: 06/24/21 18:56 Dose: 140 mls/hr Documented by: [id number] Lactated Ringer's (Lr) 1,000 mls @ 100 mls/hr IV .Q10H ONE Stop: 06/25/21 05:06 Last Infusion: 06/25/21 05:38 Dose: 0 mls/hr Documented by: [id number] Infusion: 06/25/21 00:42 Dose: 100 mls/hr Documented by: [id number] Infusion: 06/25/21 00:13 Dose: 0 mls/hr Documented by: [id number] Admin: 06/24/21 19:36 Dose: 100 mls/hr Documented by: [id number] Bumetanide 1 mg/ Syringe 4 mls @ 4 mls/min IV ONE ONE Stop: 06/25/21 12:01 Last Admin: 06/25/21 12:21 Dose: 4 mls/min Documented by: [id number] Imaging Data Radiologist's Impression: Chest X-Ray 06/24/21 17:10 XR chest 1V portable CLINICAL HISTORY: weakness TECHNIQUE: Single frontal radiograph of the chest was obtained. Comparison: Comparison is made to chest one view 04/18/2021 FINDINGS: No lines and tubes are seen. Cardiomegaly is noted. Interstitial thickening is seen. No evidence of pulmonary edema. No evidence of pleural effusion or pneumothorax. Degenerative changes are seen in the right greater than left glenohumeral joints. IMPRESSION: No acute chest disease. Cardiomegaly. ACT 112: Negative or not required by law. Electronically signed by: Enzo Solorzano M.D. 06/24/2021 6:00 PM Discharge Plan Visit Data Chief Complaint: Leg Weakness, Bilateral ED Provider: Wilber Florence Discharge Problem: Generalized weakness, Bacteria in urine, Ambulatory dysfunction Patient Disposition: Admitted As Inpatient Discharge Instructions Interventions: ED Discharge Assessment Last Done: 06/24/21 20:04
[2021-06-24 17:35] LABS: Basophils # (auto) 0.02 K/uL (0-0.2); Basophils % (auto) 0.2 %; Eosinophils # (auto) 0.07 K/uL (0-0.5); Eosinophils % (auto) 0.8 %; Hematocrit (blood only) 45.2 % (37-47); Hemoglobin 14.4 g/dL (12.0-16.0); Immature Granulocytes # (auto) 0.03 K/uL (0.00-0.02); Immature Granulocytes % (auto) 0.4 %; Lymphocytes # (auto) 2.21 K/uL (1.2-3.4); Lymphocytes % (auto) 25.8 %; Mean Corpuscular Hemoglobin 31.6 pg (25-34); Mean Corpuscular Hgb Conc 31.9 g/dL (32-36); Mean Corpuscular Volume 99.3 fL (80-100); Mean Platelet Volume 10.4 fL (7.4-10.4); Monocytes # (auto) 0.88 K/uL (0.11-0.59); Monocytes % (auto) 10.3 %; Neutrophils # (auto) 5.35 K/uL (1.4-6.5); Neutrophils % (auto) 62.5 %; Platelet Count 185 K/uL (130-400); RDW Standard Deviation 57.9 fL (36.4-46.3); Red Blood Count 4.55 M/uL (4.2-5.4); White Blood Count 8.56 K/uL (4.8-10.8)
[2021-06-24 17:59] LABS: Troponin I < 0.03 ng/ml (0-0.04)
--- NOTE | 2021-06-24 18:01 | XRay Report ---
XR chest 1V portable CLINICAL HISTORY: weakness TECHNIQUE: Single frontal radiograph of the chest was obtained. Comparison: Comparison is made to chest one view 04/18/2021 FINDINGS: No lines and tubes are seen. Cardiomegaly is noted. Interstitial thickening is seen. No evidence of p ulmonary edema. No evidence of pleural effusion or pneumothorax. Degenerative changes are seen in the right greater than left glenohumeral joints. IMPRESSION: No acute chest disease. Cardiomegaly. ACT 112: Negative or not required by law. Electronically signed by: Enzo Solorzano M.D. 06/24/2021 6:00 PM
[2021-06-24 18:16] LABS: Alanine Aminotransferase 19 U/L (7-52); Albumin Level 3.9 gm/dl (3.4-5.0); Alkaline Phosphatase 83 U/L (34-104); Anion Gap 7 (3-11); Aspartate Aminotransferase 26 U/L (13-39); BUN Creatinine Ratio 31.9 (10-20); Bilirubin Direct 0.1 mg/dl (0-0.2); Bilirubin,Total 0.6 mg/dl (0.2-1.0); Blood Urea Nitrogen 36 mg/dl (6-23); Calcium 9.3 mg/dl (8.5-10.1); Carbon Dioxide 31 mmol/L (21-32); Chloride 100 mmol/L (98-107); Creatinine Clr Calc Pharmacy 41.6 ml/min; Glucose 139 mg/dl (70-99(Fasting)); Potassium 4.2 mmol/L (3.5-5.1); Sodium 138 mmol/L (136-145); Total Protein 6.6 gm/dl (6.0-8.3)
[2021-06-24 18:31] LABS: Appearance Urine Clear (Clear); Bacteria Urine Automated 4+ (Negative); Bilirubin Urine Negative (Negative); Blood Urine Negative (Negative); Cast Urine Automated 0 /lpf (0-5); Color Urine Yellow; Glucose Urine UA Negative (Negative); Ketones Urine Negative (Negative); Leukocyte Esterase Urine Negative (Negative); Nitrite Urine Positive (Negative); Protein Urine Negative (Negative); RBC Urine Automated 0-4 /hpf (0-4); Specific Gravity Urine 1.013 (1.000-1.030); Urobilinogen Urine Negative (Negative)
[2021-06-24] MEDS ORDERED: cefTRIAXone SODIUM 2,000 MG/70 ML BAG IV STA (18:43)
[2021-06-24] MEDS ORDERED: LACTATED RINGER'S 1,000 ML IV ONE (19:07)
--- NOTE | 2021-06-24 20:08 | History & Physical Report ---
Date of Service June 24, 2021 Assessment & Plan (1) UTI (urinary tract infection): Plan: As above- Await culture - Continue Rocephin 2GM IV daily - Follow renal function and symptom improvment (2) Persistent atrial fibrillation: Plan: Rate controlled on Apixaban - Continue Metoprolol (3) (HFpEF) heart failure with preserved ejection fraction: Plan: EF 50-60 % not acute exacerbation - Hold diuretics for monring- follow BP and volume status - Might need adjustment of diuretics, however control infection process first (4) Type 2 diabetes mellitus: Plan: Dextrose sticks AC/HS - A1C 7.1% last admission is not on any agents - If persistent >180 will add coverage (5) Mitral regurgitation: Plan: Mild - As above follow hemodynamic and volume response (6) Dilation of pulmonary artery: Plan: Noted on CT scan in conjunction with her pulmonary fibrosis - may benefit from sleep study for likely component of SEBAS as well - Scheduled for follow up with pulm in July (7) Pulmonary fibrosis: Plan: As above- janae rosenberg Has home supplemental oxygen- but reports she has not needed to use it. (8) Physical deconditioning: Plan: Acute on chronic leg fatigue - Likely related to UTI- should improve with treatment of UTI no further neurological symptoms or radiculopathy - Walks with Cane- PT/OT consult History of Present Illness Primary Care Provider: Todd France, DO 85 YOF with past medcial history of: Afib (on Apixaban) onset in , HFpEF, Mitral Regurge, Pulmonary fibrosis, chronic bilateral lower extremity weakness, lower extrimity edema, HTN, GERD, hypomagnesemia, HLD (not on medicaiton). Patient comes in with complaint of increase leg fatigue and overall generalized fatigue. The patient states that his been ongoing for the past 2 days. She generally states she thought she was improving following her admission in Apr, but just feels like she is running out of gas. She is accompanied by her daughter today, and her daughter also notices decreasing in speed and increase in fatigue. In the EMD the patient had routine labs performed, ECG, CXR and UA done. Her BP is 97/67 Noting a UA with positive nitrites, (-) LE, 4+ bacteria with 1-5 WBC in urine. She was started on Rocephin 2GM IV for this. She received 1liter of saline with increase in her BP as well. She denies any fevers, chills but does note increase in urinary incontinence. She also endorses mouth feeling more dry than usual. Will admit to medical floor, continue with antibiotics while awaiting her urine culture, will hold her diuretics. Patient has noted pulmonary fibrosis without oxygen dependancy at home- Noted RV dilation on ECHO had CT scan peformed on Apr admission with increase in pulmonary trunk size likely consistent with pulmonary HTN, she is not on CPAP at home. PCP notes pulmonary visit scheduled for July COVID test on admission is: NEGATIVE Allergies Allergy/AdvReac Type Severity Reaction Status Date / Time Sulfa (Sulfonamide Allergy Unknown Unknown Verified 06/24/21 18:07 Antibiotics) Home Medications Medication Instructions Recorded Confirmed Type ferrous fumarate 324 mg (106 mg 324 mg PO 2XWK #30 tab 12/26/18 06/24/21 History iron) tablet multivit with 1 tab PO DAILY 04/18/21 06/24/21 History cjhhwpmj-pour-IN-lutein 8 mg iron-400 mcg-300 mcg tablet (Centrum Silver Women) Oxygen Home #1 ea 04/27/21 06/01/21 Rx metoprolol succinate 50 mg 50 mg PO DAILY #30 tab 05/22/21 06/24/21 Rx tablet,extended release 24 hr apixaban 5 mg tablet 5 mg PO BID #180 tab 05/30/21 06/24/21 Rx bumetanide 1 mg tablet 1 mg PO BID #180 tab 06/01/21 06/24/21 Rx magnesium oxide 400 mg (241.3 mg 400 mg PO DAILY #90 tab 06/01/21 06/24/21 Rx magnesium) tablet omeprazole 20 mg capsule,delayed 20 mg PO DAILY #90 cap 06/01/21 06/24/21 Rx release Past Med/Surg History Medical History Acid reflux disease Edema Never a smoker No illicit drug use Surgical History History of section History of hip surgery Left History of hysterectomy History of total knee arthroplasty Family History Daughter Lymphoma Sister Breast cancer Brother Brain tumor Other Diabetes Family history of coronary artery disease Denies family history of Ovarian cancer Prostate cancer Myocardial infarction Colorectal cancer Social History Smoking Status: Never smoker Second Hand Exposure: No; Hx Alcohol Use: Yes Alcohol type: wine Hx Substance Use: No Preferred Language: Icelandic Communication Ability: Effective Hearing Ability: Normal Manual Plate Filler Required: No Beliefs That Will Affect Care: None marital status: Current Living Situation: Spouse current occupational status: retired How many Children do You have: 7 Other Information That Helps Us Care for You: No Feels Safe at Home: Yes Safety Concerns: Feels Safe At This Time Childhood Exposure to Second-Hand Smoke: Yes caffeine: Yes Dental Care, Regularly: No Physical Activity Frequency: Does not Exercise Seatbelt Use: never Sunscreen Use: No Assistive Devices: Denture - Upper, Glasses and Walker Review of Systems Review of Systems: REVIEW OF SYSTEMS: Constitutional: No fever, sweats or chills Eyes: No diplopia, no worsening or blurred vision ENT: normal hearing, no trouble swallowing Respiratory: No cough, sputum, dyspnea at rest or on exertion Cardiovascular: No chest pain, tightness or palpitations Abdomen: No pain, nausea, vomiting, diarrhea or constipation Musculoskeletal: (+) weakness, No joint pain, calf pain, swelling Neurologic: No weakness, numbness/tingling, or balance problems Psychiatric: No anxiety or depression Skin: No rash or itch Physical Exam Physical Exam: PHYSICAL EXAM: General: awake, alert, no apparent distress Head: Normocephalic, atraumatic ENT: PERRL, EOMI, no pharyngeal exudate, mucous membranes dry Neuro: AAO x 3, speech clear and appropriate, strength intact bilaterally 5/5, sensation intact and equal all extremities and dermatomes, no pronator drift Chest: equal rise and fall of the chest, no accessory muscle use, no heaves or thrills, scattered fine crackles, on room air Cardiac: irregular rate and rhythm, telemetry reviewed- afib controlled, skin warm dry, cap refill <3 seconds, peripheral pulses +2 no JVD, systolic murmur, no JVD, bilateral lower extremity edema 3+ feet, 2+ to delcid GI: NABS x 4 quadrants, soft, non-tender to palpation, no rebound, guarding or tenderness : Spontaneously voiding, no pain, no CVA tenderness, Psych: Normal mood and affect Skin: no rash or erythema Results & Data Results & Data ([facility]) Vital Signs (Past 12 Hours) Vital Signs Temp Pulse Pulse Resp BP BP Pulse Ox 06/24/21 18:22 67 14 98 06/24/21 16:43 64 14 97/67 L 94 06/24/21 16:19 36.8 C 81 14 97/67 L 96 Laboratory Results Abnormal lab results 06/24/21 06/24/21 06/24/21 Range/Units 17:25 17:25 18:20 MCHC 31.9 L (32-36) g/dL RDW Std Deviation 57.9 H (36.4-46.3) fL RDW Coeff of Stephania 16.0 H (11.5-14.5) % Larimer # (Auto) 0.88 H (0.11-0.59) K/uL Immature Gran # (Auto) 0.03 H (0.00-0.02) K/uL BUN 36 H (6-23) mg/dl BUN/Creatinine Ratio 31.9 H (10-20) Glucose 139 H (70-99(Fasting)) mg/dl Urine Nitrite Positive A (Negative) U Epithel Cells (Auto) 5-10 H (0-5) /lpf Urine Bacteria (Auto) 4+ H (Negative) Diagnostic Findings Chest X-Ray 06/24/21 17:10 XR chest 1V portable CLINICAL HISTORY: weakness TECHNIQUE: Single frontal radiograph of the chest was obtained. Comparison: Comparison is made to chest one view 04/18/2021 FINDINGS: No lines and tubes are seen. Cardiomegaly is noted. Interstitial thickening is seen. No evidence of pulmonary edema. No evidence of pleural effusion or pneumothorax. Degenerative changes are seen in the right greater than left glenohumeral joints. IMPRESSION: No acute chest disease. Cardiomegaly. ACT 112: Negative or not required by law. Electronically signed by: Enzo Solorzano M.D. 06/24/2021 6:00 PM Medications Administered Lactated Ringer's (Lr) 1,000 mls @ 100 mls/hr IV .Q10H ONE Stop: 06/25/21 05:06 Last Admin: 06/24/21 19:36 Dose: 100 mls/hr Documented by: [id number] Discontinued Medications Sodium Chloride (Nss) 500 mls @ 999 mls/hr IV .Q31M ONE Stop: 06/24/21 17:40 Last Infusion: 06/24/21 18:06 Dose: 0 mls/hr Documented by: [id number] Admin: 06/24/21 17:33 Dose: 999 mls/hr Documented by: [id number] Ceftriaxone Sodium (Rocephin) 2,000 mg in 70 mls @ 140 mls/hr IV NOW STA Stop: 06/24/21 19:12 Last Infusion: 06/24/21 19:28 Dose: 0 mls/hr Documented by: [id number] Admin: 06/24/21 18:56 Dose: 140 mls/hr Documented by: [id number] ECG Additional Comments: Atrial fibrillation with premature ventricular or aberrantly conducted complexes Left axis deviation Inferior infarct , age undetermined Anterolateral infarct (cited on or before 18-MAY-2008) Abnormal ECG, When compared with ECG of 18-APR-2021 14:16, T wave inversion now evident in Inferior leads Nonspecific T wave abnormality now evident in Anterolateral leads Code Status & VTE Plan Code Status CODE: DNR/DNI VTE: SCDs, Apixaban VTE Prophylaxis Plan VTE Prophylaxis will be ordered: Yes Supervising Physician Co-Signing Physician Notes Patient seen and examined, chart reviewed, I agree with the assessment and plan as documented above. In brief, patient is an 85yo female with history of DM, CHF, PAF on Apixaban anticoagulation presenting with weakness, leg fatigue. Found with +UA. Remainder of workup is largely unremarkable On exam she is afebrile, HD stable, NAD HEENT -NC/AT, PERRL, MMM, Neck supple Heart - +S1/S2, irregularly irregular, bialteral LE edema present Lungs - equal air entry, fine end-inspiratory crackles, no rhonchi/wheezes Abd - +BS, soft, NT/ND Ext - warm, well perfused, 2+ pulses, +edema 2+ to delcid Labs and images reviewed Assessment/Plan - weakness, fatigue possibly secondary to underlying UTI, deconditioning HD stable, nontoxic, does not appear septic -Ceftriaxone -PT/OT -Remainder as above PG Care Time/CCT Total # of Minutes Spent Total Time Spent with Patient: Total time spent is greater than 50% in coordination of care (as documented) at patient's floor/unit and/or counseling patient: Coding Level of Care Code INT OBSERVATION CARE 50M LVL 2 Diagnoses UTI (urinary tract infection) N39.0 Persistent atrial fibrillation I48.19 Type 2 diabetes mellitus E11.9 Mitral regurgitation I34.0 Dilation of pulmonary artery I28.8 Pulmonary fibrosis J84.10 Physical deconditioning R53.81 (HFpEF) heart failure with preserved ejection fraction I50.30
[2021-06-24] MEDS ORDERED: ACETAMINOPHEN 325 MG TAB PO PRN (20:27)
[2021-06-24] MEDS ORDERED: POLYETHYLENE (MIRALAX) 17 GM PACK PO PRN (20:27)
[2021-06-24] MEDS: APIXABAN 5 MG TABLET PO SCH (21:39)
[2021-06-25 07:21] LABS: Basophils # (auto) 0.03 K/uL (0-0.2); Basophils % (auto) 0.4 %; Eosinophils # (auto) 0.16 K/uL (0-0.5); Eosinophils % (auto) 1.9 %; Hematocrit (blood only) 43.3 % (37-47); Hemoglobin 13.7 g/dL (12.0-16.0); Immature Granulocytes # (auto) 0.02 K/uL (0.00-0.02); Immature Granulocytes % (auto) 0.2 %; Lymphocytes # (auto) 2.31 K/uL (1.2-3.4); Lymphocytes % (auto) 27.8 %; Mean Corpuscular Hemoglobin 31.6 pg (25-34); Mean Corpuscular Hgb Conc 31.6 g/dL (32-36); Mean Corpuscular Volume 99.8 fL (80-100); Mean Platelet Volume 10.4 fL (7.4-10.4); Monocytes # (auto) 0.88 K/uL (0.11-0.59); Monocytes % (auto) 10.6 %; Neutrophils # (auto) 4.92 K/uL (1.4-6.5); Neutrophils % (auto) 59.1 %; Platelet Count 171 K/uL (130-400); RDW Coefficient of Variation 16.2 % (11.5-14.5); RDW Standard Deviation 58.9 fL (36.4-46.3); Red Blood Count 4.34 M/uL (4.2-5.4); White Blood Count 8.32 K/uL (4.8-10.8)
[2021-06-25 07:43] LABS: C Reactive Protein 0.53 mg/dl (0-0.5); Calcium 8.8 mg/dl (8.5-10.1); Creatinine Clr Calc Pharmacy 46.9 ml/min; Est GFR (African American) 59.1 ml/min; Magnesium 1.8 mg/dl (1.7-2.4); Phosphorus 3.2 mg/dl (2.5-4.9); Potassium 3.9 mmol/L (3.5-5.1)
[2021-06-25] MEDS ORDERED: NURSING DECISION MEDICATION ONE (07:53)
[2021-06-25] MEDS ORDERED: MICONAZOLE NITRATE POWDER 43 GM EXT PRN (07:59)
[2021-06-25] MEDS: APIXABAN 5 MG TABLET PO SCH ×2 (08:27→20:53)
[2021-06-25] MEDS: METOPROLOL SUCC 50MG EXT REL TAB PO SCH (08:27)
[2021-06-25] MEDS: PANTOprazole 40 MG TAB PO SCH (08:28)
--- NOTE | 2021-06-25 11:47 | Hospitalist Progress Note ---
Date of Service June 25, 2021 Assessment & Plan (1) Bilateral leg weakness: Plan: 85-year-old white female with an underlying past medical history of atrial fibrillation, pulmonary fibrosis, CHF, HTN, HLD and GERD presented to the ED following a controlled ground-level fall. Was ambulating from the bathroom when her "legs stopped working" which prompted her to lower herself to the ground resulting in a ground-level fall. No injury. Brought to the emergency department for further evaluation and care * Hemodynamically stable and afebrile * CBC and CMP within normal limits * Urinalysis is nitrite positive but leukocyte esterase negative. Patient afebrile with a normal WBC count and no urinary complaints (denies dysuria, hematuria or suprapubic pain) * No focal neuro deficits or strokelike symptoms (symptoms were bilateral leg weakness). Does take Eliquis for her A.Fib * Does have slightly increased edema of the lower extremities and reports skipping a few days of her diuretic therapy * Perhaps difficulty walking from leg weakness was more related to heaviness from increased edema? * Will give IV Bumex now X1 dose and resume oral Bumex this evening. Patient not in fulminant CHF * Obtain a TSH and B12 * obtain arterial duplex to assess flow (pulses difficult to assess given edema) * Consult PT/OTappreciate recommendations (2) Abnormal urinalysis: Plan: * Again urinalysis is nitrite positive but leukocyte esterase negative. She is afebrile with a normal WBC count and denies any urinary complaints * Hospitalized and thought to have a urinary tract infection as the cause of her symptoms; however, I am not convinced * Was given Rocephin X2 doses. Will continue for 1 additional dose (total of 3) which would be sufficient for uncomplicated UTI should that be the case * Urine culture ordered and pending (3) (HFpEF) heart failure with preserved ejection fraction: Plan: * Patient with known CHFdiastolic * EF as of 05/01 was preserved at 55 to 60% with diastolic dysfunction * Currently, has peripheral edema of the lower extremities and is up approximately 5 pounds from base weight * Admits to skipping several doses of her Bumex on account of company coming * IV Bumex X1 dose now with resumption of oral * Continue beta-blockade * Lengthy discussion with patient regarding the importance of medical compliance * Patient follows Coby Strauss PA-C at the heart failure clinic. Can follow- up with her as an outpatient (4) Persistent atrial fibrillation: Plan: * Currently with controlled ventricular rate * Continue metoprolol and Eliquis as prior to hospitalization Plan: Plan of care will be discussed with Dr. Vergara. Further orders as warranted. Admission and Anticipated Discharge Date Admission Date: June 24, 2021 Subjective Patient seen on daily rounds today. She was hospitalized with generalized weakness ongoing for 2 days and reports that her legs "just stopped working". She was ambulating from the bathroom when her legs just ""moving". No isolated weakness. She had a controlled ground-level fall as she lowered herself to the ground. She was able to crawl to the living room where she called for her . Denied weakness in her arms or hands. No trouble forming her words or swallowing. Upon presentation to the ED was noted to be hemodynamically stable and her lab data was unremarkable. Her urinalysis did show positive nitrites but was leukocyte esterase negative. She was started on antibiotic therapy as it was thought urinary tract infection was the cause of her symptoms. She denies dysuria, hematuria, frequency, fevers or chills. Did work with therapy this morning was able to stand at the bedside. Is noted to have some mild swelling of her lower extremities which she reports is slightly increased from baseline. She admits that she did not take her Bumex for approximately 2 to 3 days as she was getting company and this increases her urinary frequency. She denies increase shortness of breath, orthopnea or PND. Review of Systems Review of Systems: All systems reviewed and are unremarkable except as noted in HPI and below Denies fevers, chills, headache, nasal congestion, sore throat, cough, chest pain, shortness of breath, palpitations, orthopnea, PND, abdominal pain, nausea, vomiting, diarrhea, constipation, dysuria, hematuria, frequency, back pain, joint pain or swelling, easy bruising or bleeding, skin lesions or rashes. Physical Exam Physical Exam: General: Resting comfortably in her hospital bed. NAD. HEENT: Head is AT/NC. Buccal mucosa is moist and pink Neck: No JVD. Negative hepatojugular reflex Cardiac: Irregular rhythm but controlled ventricular rate with 1/6 to 2/6 MAMIE Lungs: Breathing comfortably on ambient air. Normal respiratory effort without W/R/R Abdomen: Normoactive X4. Soft and nontender in all quadrants. Extremities: Vascular changes noted of the bilateral lower extremities with superimposed 1-2+ pitting edema Neuro: A&O X4. Cranial nerves II through XII are grossly intact. No focal neuro deficits Skin: No obvious skin lesions or rashes Psych: Appropriate affect. Pleasant and cooperative Results & Data Results & Data ([facility]) Vital Signs (Past 12 Hours) Vital Signs Temp Pulse Resp BP Pulse Ox 06/25/21 07:45 36.4 C L 61 16 115/70 94 Laboratory Results 06/25/21 06:35 06/25/21 06:35 PG Care Time/CCT Total # of Minutes Spent Total Time Spent with Patient: Total time spent is greater than 50% in coordination of care (as documented) at patient's floor/unit and/or counseling patient: Coding Level of Care Code 45874 Subseq Obs Care Lvl 2 Diagnoses Bilateral leg weakness R29.898 Abnormal urinalysis R82.90 (HFpEF) heart failure with preserved ejection fraction I50.30 Persistent atrial fibrillation I48.19
[2021-06-25] MEDS ORDERED: BUMETANIDE 1 MG in SYRINGE 0 ML IV ONE (12:00)
[2021-06-25] MEDS: BUMETANIDE 1 MG TAB PO SCH (17:57)
[2021-06-25] MEDS: cefTRIAXone SODIUM 2,000 MG in DEXTROSE 5% 50 ML IV SCH (17:59)
--- NOTE | 2021-06-25 18:03 | Ultrasound Report ---
US ankle/brachial index ltd HISTORY: 85 years-old Female assess flow decreased pedal pulses with bilateral lower extremity edema COMPARISON: None TECHNIQUE: Segmental pressure with ABIs were obtained of the lower extremities FINDINGS: The right brachial artery was not recorded. The left brachial measures 134. Right: Dorsalis pedis-147 (1.10); posterior tibial-142 (1.06) Left: Dorsalis pedis-147 (1.10); posterior tibial-105 (0.78). IMPRESSION: Moderately decreased HELLEN of the left posterior tibial artery. ACT 112: Negative or not required by law. The above report was generated using voice recognition software. It may contain grammatical, syntax o r spelling errors. Electronically signed by: Woodrow Alvarez M.D. 06/25/2021 6:02 PM
--- NOTE | 2021-06-25 22:25 | Electrocardiogram Report ---
Test Reason : Blood Pressure : / mmHG Vent. Rate : 070 BPM Atrial Rate : 375 BPM P-R Int : 000 ms QRS Dur : 092 ms QT Int : 420 ms P-R-T Axes : 000 -33 -32 degrees QTc Int : 453 ms Atrial fibrillation with premature ventricular or aberrantly conducted complexes Left axis deviation Inferior infarct , age undetermined Anterolateral infarct (cited on or before 18-APR-2021) Abnormal ECG When compared with ECG of 18-APR-2021 14:16, T wave inversion now evident in Inferior leads Nonspecific T wave abnormality now evident in Anterolateral leads Confirmed by Rashid Pierce ([id number]) on 06/25/2021 10:24:58 PM Referred By: REFERRED SELF Confirmed By:Rashid Pierce
[2021-06-26 06:35] LABS: Basophils # (auto) 0.03 K/uL (0-0.2); Basophils % (auto) 0.3 %; Eosinophils # (auto) 0.21 K/uL (0-0.5); Eosinophils % (auto) 2.4 %; Hematocrit (blood only) 44.8 % (37-47); Hemoglobin 14.4 g/dL (12.0-16.0); Immature Granulocytes # (auto) 0.03 K/uL (0.00-0.02); Immature Granulocytes % (auto) 0.3 %; Lymphocytes # (auto) 2.28 K/uL (1.2-3.4); Lymphocytes % (auto) 25.6 %; Mean Corpuscular Hemoglobin 31.8 pg (25-34); Mean Corpuscular Hgb Conc 32.1 g/dL (32-36); Mean Corpuscular Volume 98.9 fL (80-100); Mean Platelet Volume 10.7 fL (7.4-10.4); Monocytes # (auto) 1.06 K/uL (0.11-0.59); Monocytes % (auto) 11.9 %; Neutrophils # (auto) 5.28 K/uL (1.4-6.5); Neutrophils % (auto) 59.5 %; Platelet Count 172 K/uL (130-400); RDW Coefficient of Variation 16.3 % (11.5-14.5); RDW Standard Deviation 58.9 fL (36.4-46.3); Red Blood Count 4.53 M/uL (4.2-5.4); White Blood Count 8.89 K/uL (4.8-10.8)
[2021-06-26 07:00] LABS: BUN Creatinine Ratio 30.3 (10-20); Calcium 8.7 mg/dl (8.5-10.1); Creatinine Clr Calc Pharmacy 47.4 ml/min; Est GFR (African American) 59.8 ml/min; Est GFR (Non-African American) 51.6 ml/min; Magnesium 1.6 mg/dl (1.7-2.4); Potassium 3.5 mmol/L (3.5-5.1)
[2021-06-26] MEDS: BUMETANIDE 1 MG TAB PO SCH ×2 (08:46→16:20)
[2021-06-26] MEDS: APIXABAN 5 MG TABLET PO SCH ×2 (08:46→20:05)
[2021-06-26] MEDS: PANTOprazole 40 MG TAB PO SCH (08:46)
[2021-06-26] MEDS: METOPROLOL SUCC 50MG EXT REL TAB PO SCH (08:46)
[2021-06-26 08:54] LABS: Estimated Average Glucose 163 mg/dl; Hemoglobin A1C 7.3 % (4.5-5.6)
--- NOTE | 2021-06-26 13:58 | Hospitalist Progress Note ---
Date of Service June 26, 2021 Assessment & Plan (1) Bilateral leg weakness: Plan: 85-year-old white female with an underlying past medical history of atrial fibrillation, pulmonary fibrosis, CHF, HTN, HLD and GERD presented to the ED following a controlled ground-level fall. Was ambulating from the bathroom when her "legs stopped working" which prompted her to lower herself to the ground resulting in a ground-level fall. No injury. Brought to the emergency department for further evaluation and care SUSPECT MULTIFACTORIAL: * Hemodynamically stable and afebrile * CBC and CMP within normal limits * Does seem to have a urinary tract infection a (pansensitive E. coli) may be contributing to her general weaknesssee below * No focal neuro deficits or strokelike symptoms (symptoms were bilateral leg weakness). Does take Eliquis for her A.Fib * Did have slightly increased edema of the lower extremities and reports skipping a few days of her diuretic therapy * Perhaps difficulty walking from leg weakness was more related to heaviness from increased edema?--Given IV Bumex and restarted on oral * TSH slightly abnormal at 5.35 (in review of old records, seems to be an ongoing issue for patient since April of this past year.) Started on Synthroid and further labs obtainedsee below * Arterial ultrasound showing mild left-sided PAD. Start aspirinsee below * B12 low at 353. Start supplementation * PT/OT recommending rehab (2) UTI (urinary tract infection): Plan: * Pansensitive E. coli * May be contributing to underlying weakness * No significant urinary complaints however. Patient afebrile with normal WBC count * Continue Rocephin (3 to 5 days sufficient for uncomplicated UTI) (3) B12 deficiency: Plan: * Likely contributing to leg weakness as low level of normal (353) * Give IM cyanocobalamin today and start oral supplementation tomorrow * Will need repeat B12 level in 3 months to trend (4) PAD (peripheral artery disease): Plan: * ABIs done given reports of bilateral leg weakness and difficulty walking * HELLEN consistent with moderate PAD in the left lower extremity (0.78) * Start aspirin 81 mg daily * Aspirin to be used cautiously as patient on concurrent Eliquis as well. She is already on PPI which will help provide GI prophylaxis * Unfortunately, Eliquis will not help with microvascular disease * Will need to monitor H&H closely (5) Hypothyroid: Plan: * TSH has been elevated since 05/01 (6.9 then 5.4, currently 5.3) * At this time, she likely has subclinical hypothyroidism and this could be contributing to her symptomatology * Given her underlying history of CHF and A. fib, I do think it would be oden to initiate treatment * I have ordered a free T4, total T3, peroxidase and autoantibodies * Start Synthroid 25 mcg daily * Will need follow-up TSH in 6 weeks (6) Hypomagnesemia: Plan: * Supplement (7) (HFpEF) heart failure with preserved ejection fraction: Plan: * Patient with known CHFdiastolic * EF as of 05/01 was preserved at 55 to 60% with diastolic dysfunction * upon arrival--had peripheral edema of the lower extremities and is up approximately 5 pounds from base weight * Admits to skipping several doses of her Bumex on account of company coming * IV Bumex X1 dose with resumption of oral * currently appears clinically compensated * Continue beta-blockade * Lengthy discussion with patient regarding the importance of medical compliance * Patient follows Coby Strauss PA-C at the heart failure clinic. Can follow- up with her as an outpatient (8) Persistent atrial fibrillation: Plan: * Currently with controlled ventricular rate * Continue metoprolol and Eliquis as prior to hospitalization Plan: Plan of care will be discussed with Dr. Burciaga. Further orders as warranted. Admission and Anticipated Discharge Date Admission Date: June 24, 2021 Supervising Physician Co-Signing Physician Notes JOSE ELIAS Supervision Note: I did not personally see or examine the patient today, but I verified all miranda points of JOSE ELIAS Wooten's assessment and plan with the following exceptions/additions: None Subjective Patient seen on daily rounds today. Complaining of slight discomfort in the vaginal region which she believes may be due to the pure wick catheter. Otherwise, she denies fevers, chills, chest pain, shortness of breath, abdominal pain, nausea or vomiting. Seen by PT/OT who are recommending rehab. Patient agreeable to this. Review of Systems Review of Systems: All systems reviewed and are unremarkable except as noted in HPI and below Denies fevers, chills, headache, nasal congestion, sore throat, cough, chest pain, shortness of breath, palpitations, orthopnea, PND, abdominal pain, nausea, vomiting, diarrhea, constipation, dysuria, hematuria, frequency, back pain, joint pain or swelling, easy bruising or bleeding, skin lesions or rashes. Physical Exam Physical Exam: General: Resting comfortably in her hospital bed. NAD. HEENT: Head is AT/NC. Buccal mucosa is moist and pink Neck: No JVD. Negative hepatojugular reflex Cardiac: Irregular rhythm but controlled ventricular rate with 1/6 to 2/6 MAMIE Lungs: Breathing comfortably on ambient air. Normal respiratory effort without W/R/R Abdomen: Normoactive X4. Soft and nontender in all quadrants. Extremities: Vascular changes noted of the bilateral lower extremities with superimposed 1-2+ pitting edema Neuro: A&O X4. Cranial nerves II through XII are grossly intact. No focal neuro deficits Skin: No obvious skin lesions or rashes Psych: Appropriate affect. Pleasant and cooperative Results & Data Results & Data ([facility]) Vital Signs (Past 12 Hours) Vital Signs Temp Pulse Resp BP Pulse Ox 06/26/21 07:46 36.5 C 71 18 131/72 90 PG Care Time/CCT Total # of Minutes Spent Total Time Spent with Patient: Total time spent is greater than 50% in coordination of care (as documented) at patient's floor/unit and/or counseling patient: Coding Level of Care Code 67971 Subseq Hosp Care Lvl 2 Diagnoses Bilateral leg weakness R29.898 (HFpEF) heart failure with preserved ejection fraction I50.30 Persistent atrial fibrillation I48.19 UTI (urinary tract infection) N39.0 B12 deficiency E53.8 PAD (peripheral artery disease) I73.9 Hypothyroid E03.9 Hypomagnesemia E83.42
[2021-06-26] MEDS ORDERED: CYANOCOBALAMIN 1000 MCG/ML VIAL IM ONE (14:00)
[2021-06-26] MEDS: cefTRIAXone SODIUM 2,000 MG in DEXTROSE 5% 50 ML IV SCH (18:03)
[2021-06-26] MEDS: MAGNESIUM OXIDE 400 MG TAB PO SCH (20:05)
[2021-06-27] MEDS: LEVOTHYROXINE SODIUM 25 MCG TABLET PO SCH (05:47)
[2021-06-27 06:42] LABS: Basophils # (auto) 0.02 K/uL (0-0.2); Basophils % (auto) 0.2 %; Eosinophils % (auto) 0.9 %; Hematocrit (blood only) 43.8 % (37-47); Hemoglobin 14.2 g/dL (12.0-16.0); Immature Granulocytes # (auto) 0.03 K/uL (0.00-0.02); Immature Granulocytes % (auto) 0.3 %; Lymphocytes # (auto) 3.43 K/uL (1.2-3.4); Lymphocytes % (auto) 29.2 %; Mean Corpuscular Hemoglobin 32.1 pg (25-34); Mean Corpuscular Hgb Conc 32.4 g/dL (32-36); Mean Corpuscular Volume 98.9 fL (80-100); Mean Platelet Volume 10.4 fL (7.4-10.4); Monocytes # (auto) 1.53 K/uL (0.11-0.59); Neutrophils # (auto) 6.63 K/uL (1.4-6.5); Neutrophils % (auto) 56.4 %; Platelet Count 192 K/uL (130-400); RDW Coefficient of Variation 16.3 % (11.5-14.5); Red Blood Count 4.43 M/uL (4.2-5.4); White Blood Count 11.74 K/uL (4.8-10.8)
[2021-06-27 06:53] LABS: BUN Creatinine Ratio 28.4 (10-20); Calcium 8.6 mg/dl (8.5-10.1); Creatinine Clr Calc Pharmacy 49.3 ml/min; Est GFR (African American) 62.9 ml/min; Est GFR (Non-African American) 54.2 ml/min; Magnesium 1.5 mg/dl (1.7-2.4); Potassium 3.5 mmol/L (3.5-5.1)
[2021-06-27] MEDS: APIXABAN 5 MG TABLET PO SCH ×2 (07:39→22:23)
[2021-06-27] MEDS: ASPIRIN 81 MG ECTAB PO SCH (07:39)
[2021-06-27] MEDS: MAGNESIUM OXIDE 400 MG TAB PO SCH ×2 (07:40→22:23)
[2021-06-27] MEDS: BUMETANIDE 1 MG TAB PO SCH (07:40)
[2021-06-27] MEDS: METOPROLOL SUCC 50MG EXT REL TAB PO SCH (07:40)
[2021-06-27] MEDS: PANTOprazole 40 MG TAB PO SCH (07:40)
[2021-06-27] MEDS: CYANOCOBALAMIN (B-12) 500 MCG TABLET PO SCH (07:40)
--- NOTE | 2021-06-27 13:22 | Hospitalist Progress Note ---
Date of Service June 27, 2021 Assessment & Plan (1) Bilateral leg weakness: Plan: 85-year-old white female with an underlying past medical history of atrial fibrillation, pulmonary fibrosis, CHF, HTN, HLD and GERD presented to the ED following a controlled ground-level fall. Was ambulating from the bathroom when her "legs stopped working" which prompted her to lower herself to the ground resulting in a ground-level fall. No injury. Brought to the emergency department for further evaluation and care SUSPECT MULTIFACTORIAL: * Hemodynamically stable and afebrile * CBC and CMP within normal limits * Does have a UTI-(pansensitive E. coli) may be contributing to her general weaknesssee below * No focal neuro deficits or strokelike symptoms (symptoms were bilateral leg weakness). Does take Eliquis for her A.Fib * Did have slightly increased edema of the lower extremities and reports skipping a few days of her diuretic therapy * Perhaps difficulty walking from leg weakness was more related to heaviness from increased edema?--Give IV Bumex with plan to transition back to oral * TSH slightly abnormal at 5.35 (in review of old records, seems to be an ongoing issue for patient since April of this past year.) Started on Synthroid and further labs obtainedsee below * Arterial ultrasound showing mild left-sided PAD. Start aspirinsee below. PAD may be contributing * B12 low at 353. Start supplementation-- may be contributing * no back pain, paresthesias, saddle anesthesias, etc. do not suspect back related * no evidence of an ascending paralysis. * PT/OT recommending rehab-- pt agreeable. consult case mgmt (2) UTI (urinary tract infection): Plan: * Pansensitive E. coli * May be contributing to underlying weakness * No significant urinary complaints however. Patient afebrile with normal WBC count * completed 4 days IV Rocephin-- appropriate for uncomplicated UTI (3) B12 deficiency: Plan: * Likely contributing to leg weakness as low level of normal (353) * Give IM cyanocobalamin x1 and oral supplementation started * Will need repeat B12 level in 3 months to trend (4) PAD (peripheral artery disease): Plan: * ABIs done given reports of bilateral leg weakness and difficulty walking * HELLEN consistent with moderate PAD in the left lower extremity (0.78) * Start aspirin 81 mg daily * Aspirin to be used cautiously as patient on concurrent Eliquis as well. She is already on PPI which will help provide GI prophylaxis * Unfortunately, Eliquis will not help with microvascular disease * Will need to monitor H&H closely (5) Hypothyroid: Plan: * TSH has been elevated since 05/01 (6.9 then 5.4, currently 5.3) * At this time, she likely has subclinical hypothyroidism and this could be contributing to her symptomatology * Given her underlying history of CHF and A. fib, I do think it would be oden to initiate treatment * I have ordered a free T4, total T3, peroxidase and autoantibodies-- pending * Started on Synthroid 25 mcg daily * Will need follow-up TSH in 6 weeks (6) Hypomagnesemia: Plan: * Supplement (7) (HFpEF) heart failure with preserved ejection fraction: Plan: * Patient with known CHFdiastolic * EF as of 05/01 was preserved at 55 to 60% with diastolic dysfunction * upon arrival--had peripheral edema of the lower extremities and is up approximately 5 pounds from base weight * Admits to skipping several doses of her Bumex on account of company coming * IV Bumex today (as edema may be contributing to her leg issues) * Continue beta-blockade * Lengthy discussion with patient regarding the importance of medical compliance * Patient follows Coby Strauss PA-C at the heart failure clinic. Can follow- up with her as an outpatient (8) Persistent atrial fibrillation: Plan: * Currently with controlled ventricular rate * Continue metoprolol and Eliquis as prior to hospitalization Plan: Plan of care will be discussed with Dr. Vergara. Further orders as warranted. Admission and Anticipated Discharge Date Admission Date: June 26, 2021 Subjective Patient seen on daily rounds today. Reports that her legs remain weak and she is having trouble walking. Denies back pain, pain in the legs, paresthesias, saddle anesthesias, increased incontinence from baseline or stool incontinence. Nursing noted some crackles at the bases in her lungs today. She does reports feeling slightly more Dyspneic on exertion (with toileting) but denies SOB at rest. Denies CP, orthopnea, PND, abd pain, N/V Review of Systems Review of Systems: All systems reviewed and are unremarkable except as noted in HPI and below Denies fevers, chills, headache, nasal congestion, sore throat, cough, chest jennifer n, shortness of breath, palpitations, orthopnea, PND, abdominal pain, nausea, vomiting, diarrhea, constipation, dysuria, hematuria, frequency, back pain, joint pain or swelling, easy bruising or bleeding, skin lesions or rashes. Physical Exam Physical Exam: General: Resting comfortably in her hospital bed. NAD. HEENT: Head is AT/NC. Buccal mucosa is moist and pink Neck: No JVD. Negative hepatojugular reflex Cardiac: Irregular rhythm but controlled ventricular rate with 1/6 to 2/6 MAMIE Lungs: mild conversational dyspnea today Abdomen: Normoactive X4. Soft and nontender in all quadrants. Extremities: Vascular changes noted of the bilateral lower extremities with superimposed 1-2+ pitting edema Neuro: A&O X4. Cranial nerves II through XII are grossly intact. No focal neuro deficits Skin: No obvious skin lesions or rashes Psych: Appropriate affect. Pleasant and cooperative Results & Data Results & Data ([facility]) Vital Signs (Past 12 Hours) Vital Signs Temp Pulse Resp BP Pulse Ox 06/27/21 07:33 37.2 C 80 18 143/87 H 90 Laboratory Results 06/27/21 06:06 06/27/21 06:06 PG Care Time/CCT Total # of Minutes Spent Total Time Spent with Patient: Total time spent is greater than 50% in coordination of care (as documented) at patient's floor/unit and/or counseling patient: Coding Level of Care Code 32058 Subseq Hosp Care Lvl 2 Diagnoses Bilateral leg weakness R29.898 UTI (urinary tract infection) N39.0 B12 deficiency E53.8 PAD (peripheral artery disease) I73.9 Hypothyroid E03.9 Hypomagnesemia E83.42 (HFpEF) heart failure with preserved ejection fraction I50.30 Persistent atrial fibrillation I48.19
[2021-06-27] MEDS ORDERED: MAGNESIUM SULFATE / D5W 1 GM/100 ML BAG IV ONE (13:30)
[2021-06-27] MEDS: BUMETANIDE 1 MG in SYRINGE 0 ML IV SCH (16:40)
[2021-06-28] MEDS: LEVOTHYROXINE SODIUM 25 MCG TABLET PO SCH (05:50)
[2021-06-28 08:07] LABS: Basophils # (auto) 0.02 K/uL (0-0.2); Basophils % (auto) 0.2 %; Eosinophils # (auto) 0.07 K/uL (0-0.5); Eosinophils % (auto) 0.6 %; Hematocrit (blood only) 42.8 % (37-47); Hemoglobin 14.1 g/dL (12.0-16.0); Immature Granulocytes # (auto) 0.05 K/uL (0.00-0.02); Immature Granulocytes % (auto) 0.5 %; Lymphocytes # (auto) 2.68 K/uL (1.2-3.4); Lymphocytes % (auto) 24.6 %; Mean Corpuscular Hemoglobin 32.2 pg (25-34); Mean Corpuscular Hgb Conc 32.9 g/dL (32-36); Mean Corpuscular Volume 97.7 fL (80-100); Mean Platelet Volume 10.4 fL (7.4-10.4); Monocytes # (auto) 1.38 K/uL (0.11-0.59); Monocytes % (auto) 12.7 %; Neutrophils % (auto) 61.4 %; Platelet Count 178 K/uL (130-400); RDW Coefficient of Variation 15.9 % (11.5-14.5); Red Blood Count 4.38 M/uL (4.2-5.4)
[2021-06-28 08:33] LABS: BUN Creatinine Ratio 28.6 (10-20); Calcium 8.7 mg/dl (8.5-10.1); Creatinine Clr Calc Pharmacy 47.8 ml/min; Est GFR (African American) 60.5 ml/min; Est GFR (Non-African American) 52.2 ml/min; Magnesium 1.8 mg/dl (1.7-2.4); Potassium 3.3 mmol/L (3.5-5.1)
[2021-06-28] MEDS: CYANOCOBALAMIN (B-12) 500 MCG TABLET PO SCH (08:53)
[2021-06-28] MEDS: APIXABAN 5 MG TABLET PO SCH ×2 (08:53→21:35)
[2021-06-28] MEDS: PANTOprazole 40 MG TAB PO SCH (08:53)
[2021-06-28] MEDS: ASPIRIN 81 MG ECTAB PO SCH (08:53)
[2021-06-28] MEDS: MAGNESIUM OXIDE 400 MG TAB PO SCH ×2 (08:53→21:35)
[2021-06-28] MEDS: METOPROLOL SUCC 50MG EXT REL TAB PO SCH (08:53)
[2021-06-28] MEDS: BUMETANIDE 1 MG in SYRINGE 0 ML IV SCH (08:54)
[2021-06-28] MEDS ORDERED: COLCHICINE 0.6 MG TAB PO ONE ×2 (09:45→10:45)
--- NOTE | 2021-06-28 10:14 | XRay Report ---
XR hand RT 2V HISTORY: 85 years-old Female right finger pain acute pain with soft tissue swelling of the right fif th finger COMPARISON: None TECHNIQUE: 2 views of the right hand FINDINGS: Demineralized appearance of the bones with severe multifocal osteoarthritis and chronic remodeling ch anges. Chondrocalcinosis of the TFCC. There is mild diffuse soft tissue prominence. Mild dorsal sublu xation of the fifth DIP joint with apex ulnar angulation. No acute fracture or dislocation is identif ied. IMPRESSION: 1. No acute fracture. 2. Severe multifocal osteoarthritis. 3. Mild angulation and subluxation of the fifth DIP joint is favored to be degenerative. [facility] clinical exam findings. ACT 112: Negative or not required by law. The above report was generated using voice recognition software. It may contain grammatical, syntax o r spelling errors. Electronically signed by: Woodrow Alvarez M.D. 06/28/2021 10:13 AM
[2021-06-28] MEDS: POTASSIUM CHLORIDE CRTAB 20 MEQ TABCR PO SCH ×2 (11:12→15:45)
[2021-06-28] MEDS ORDERED: ALBUT/IPRATROP 3MG/0.5MG NEB 3 ML VIAL NEB STA (16:01)
--- NOTE | 2021-06-28 16:05 | Hospitalist Progress Note ---
Date of Service June 28, 2021 Assessment & Plan (1) SOB (shortness of breath): Plan: * Has not had any respiratory symptoms since admission * Did seem to have more right-sided symptoms and admitted to missing several doses of Bumex prior to this hospital stay * Has been on IV Bumex but despite that, developed shortness of breath without hypoxemia * Will obtain a stat chest x-ray and repeat BNP along with a repeat Covid test * Clinically, does seem to have bibasilar crackles, JVD, and increasing edema of the lower extremities. * Give 1 dose of Zaroxolyn now and continue Bumex at increased dose (2 mg every 12 hours) * Consult heart failure clinic * Will follow (2) Bilateral leg weakness: Plan: 85-year-old white female with an underlying past medical history of atrial fibrillation, pulmonary fibrosis, CHF, HTN, HLD and GERD presented to the ED following a controlled ground-level fall. Was ambulating from the bathroom when her "legs stopped working" which prompted her to lower herself to the ground resulting in a ground-level fall. No injury. Brought to the emergency department for further evaluation and care SUSPECT MULTIFACTORIAL: * general decline from recent hospitalization, mild uncompensated CHF with leg edema (making legs heavy and difficult to move), B12 deficiency, PAD, s ubclinical hypothyroidism * PT/OT recommending rehab-- pt agreeable. consult case mgmt (3) UTI (urinary tract infection): Plan: * Pansensitive E. coli * May be contributing to underlying weakness * No significant urinary complaints however. Patient afebrile with normal WBC count * completed 4 days IV Rocephin-- appropriate for uncomplicated UTI (4) B12 deficiency: Plan: * Likely contributing to leg weakness as low level of normal (353) * Give IM cyanocobalamin x1 and oral supplementation started * Will need repeat B12 level in 3 months to trend (5) PAD (peripheral artery disease): Plan: * ABIs done given reports of bilateral leg weakness and difficulty walking * HELLEN consistent with moderate PAD in the left lower extremity (0.78) * Start aspirin 81 mg daily * Aspirin to be used cautiously as patient on concurrent Eliquis as well. She is already on PPI which will help provide GI prophylaxis * Unfortunately, Eliquis will not help with microvascular disease * Will need to monitor H&H closely (6) Hypothyroid: Plan: * TSH has been elevated since 05/01 (6.9 then 5.4, currently 5.3) * At this time, she likely has subclinical hypothyroidism and this could be contributing to her symptomatology * Given her underlying history of CHF and A. fib, I do think it would be oden to initiate treatment * free T4 normal at 1.07, total t3 low level normal at 78 (reference range 76- 181), * Started on Synthroid 25 mcg daily * Will need follow-up TSH in 6 weeks (7) Hypomagnesemia: Plan: * replaced/resolved (8) (HFpEF) heart failure with preserved ejection fraction: Plan: * Patient with known CHFdiastolic * EF as of 05/01 was preserved at 55 to 60% with diastolic dysfunction * upon arrival--had peripheral edema of the lower extremities and is up approximately 5 pounds from base weight * Admits to skipping several doses of her Bumex on account of company coming * Given IV Bumex and despite this, had increasing edema of the lower extremities and now with shortness of breath and bibasilar crackles * 1 dose of Zaroxolyn now * Increase Bumex to 2 mg IV every 12 hours. * Monitor I's and O's closely * Lengthy discussion with patient regarding the importance of medical compliance * [facility] Can follow-up with her as an outpatient (9) Persistent atrial fibrillation: Plan: * Currently with controlled ventricular rate * Continue metoprolol and Eliquis as prior to hospitalization Plan: Plan of care will be discussed with Dr. Vergara. Further orders as warranted. Admission and Anticipated Discharge Date Admission Date: June 26, 2021 Subjective Patient seen on daily rounds today. Reports that her legs remain weak and she is having trouble walking. Denies back pain, pain in the legs, paresthesias, saddle anesthesias, increased incontinence from baseline or stool incontinence. Nursing noted some crackles at the bases in her lungs today. She does reports feeling slightly more Dyspneic on exertion (with toileting) but denies SOB at rest. Denies CP, orthopnea, PND, abd pain, N/V. Throughout the day, her shortness of breath has increased. She is not hypoxic or requiring any supplemental oxygen but she seems to be getting dyspneic with limited exertion. Review of Systems Review of Systems: All systems reviewed and are unremarkable except as noted in HPI and below Denies fevers, chills, headache, nasal congestion, sore throat, cough, chest pain, shortness of breath, palpitations, orthopnea, PND, abdominal pain, nausea, vomiting, diarrhea, constipation, dysuria, hematuria, frequency, back pain, joint pain or swelling, easy bruising or bleeding, skin lesions or rashes. Physical Exam Physical Exam: General: Resting comfortably in her hospital bed. NAD. HEENT: Head is AT/NC. Buccal mucosa is moist and pink Neck: Mild JVD negative hepatojugular reflex Cardiac: Irregular rhythm but controlled ventricular rate with 1/6 to 2/6 MAMIE Lungs: mild conversational dyspnea today with bibasilar crackles Abdomen: Normoactive X4. Soft and nontender in all quadrants. Extremities: Vascular changes noted of the bilateral lower extremities with superimposed 1-2+ pitting edema Neuro: A&O X4. Cranial nerves II through XII are grossly intact. No focal neuro deficits Skin: No obvious skin lesions or rashes Psych: Appropriate affect. Pleasant and cooperative Results & Data Results & Data ([facility]) Vital Signs (Past 12 Hours) Vital Signs Temp Pulse Resp BP Pulse Ox 06/28/21 15:35 37.5 C 84 16 121/69 93 06/28/21 07:42 37 C 74 16 123/73 91 Laboratory Results 06/28/21 07:46 06/28/21 07:46 PG Care Time/CCT Total # of Minutes Spent Total Time Spent with Patient: Total time spent is greater than 50% in coordination of care (as documented) at patient's floor/unit and/or counseling patient: Coding Level of Care Code 65493 Subseq Hosp Care Lvl 3 Diagnoses Bilateral leg weakness R29.898 UTI (urinary tract infection) N39.0 B12 deficiency E53.8 PAD (peripheral artery disease) I73.9 Hypothyroid E03.9 Hypomagnesemia E83.42 (HFpEF) heart failure with preserved ejection fraction I50.30 Persistent atrial fibrillation I48.19 SOB (shortness of breath) R06.02
[2021-06-28 16:30] LABS: Influenza A virus by PCR Negative (Negative); Influenza B virus by PCR Negative (Negative)
[2021-06-28] MEDS ORDERED: metOLazone 5 MG TABLET PO ONE (16:32)
--- NOTE | 2021-06-28 16:33 | XRay Report ---
XR chest 1V portable CLINICAL HISTORY: SOB. ? CHF TECHNIQUE: Single frontal radiograph of the chest was obtained. Comparison: Comparison is made to chest one view 06/24/2021 FINDINGS: No lines and tubes are seen. Cardiomegaly is noted. Airspace opacities in the right upper lobe. Lungs are underinflated. No evidence of pleural effusion or pneumothorax. IMPRESSION: Airspace opacity in the right upper lobe which may represent atelectasis, pneumonia, and/or aspiratio n. ACT 112: Negative or not required by law. Electronically signed by: Enzo Solorzano M.D. 06/28/2021 4:32 PM
[2021-06-28] MEDS: BUMETANIDE 2 MG in SYRINGE 0 ML IV SCH (18:22)
[2021-06-28 18:42] LABS: Influenza A virus by PCR Negative (Neg); Influenza B virus by PCR Negative (Neg); RSV by PCR Negative (Neg)
[2021-06-28 19:06] LABS: SARS CoV2 RNA(COVID-19) InHosp POSITIVE (Negative)
[2021-06-29] MEDS: LEVOTHYROXINE SODIUM 25 MCG TABLET PO SCH (05:53)
[2021-06-29 07:31] LABS: Basophils # (auto) 0.02 K/uL (0-0.2); Basophils % (auto) 0.2 %; Eosinophils # (auto) 0.14 K/uL (0-0.5); Eosinophils % (auto) 1.2 %; Hemoglobin 15.3 g/dL (12.0-16.0); Immature Granulocytes # (auto) 0.03 K/uL (0.00-0.02); Immature Granulocytes % (auto) 0.3 %; Lymphocytes # (auto) 2.96 K/uL (1.2-3.4); Lymphocytes % (auto) 25.8 %; Mean Corpuscular Volume 97.2 fL (80-100); Mean Platelet Volume 10.5 fL (7.4-10.4); Monocytes % (auto) 12.2 %; Neutrophils # (auto) 6.94 K/uL (1.4-6.5); Neutrophils % (auto) 60.3 %; Platelet Count 214 K/uL (130-400); RDW Coefficient of Variation 15.7 % (11.5-14.5); RDW Standard Deviation 56.2 fL (36.4-46.3); Red Blood Count 4.63 M/uL (4.2-5.4); White Blood Count 11.49 K/uL (4.8-10.8)
[2021-06-29 07:59] LABS: BUN Creatinine Ratio 27.5 (10-20); Creatinine Clr Calc Pharmacy 44.7 ml/min; Est GFR (African American) 57.7 ml/min; Est GFR (Non-African American) 49.8 ml/min; Magnesium 1.7 mg/dl (1.7-2.4); Potassium 3.6 mmol/L (3.5-5.1)
[2021-06-29] MEDS: PANTOprazole 40 MG TAB PO SCH (09:29)
[2021-06-29] MEDS: MAGNESIUM OXIDE 400 MG TAB PO SCH ×2 (09:29→20:01)
[2021-06-29] MEDS: BUMETANIDE 2 MG in SYRINGE 0 ML IV SCH (09:29)
[2021-06-29] MEDS: APIXABAN 5 MG TABLET PO SCH ×2 (09:29→20:00)
[2021-06-29] MEDS: ASPIRIN 81 MG ECTAB PO SCH (09:29)
[2021-06-29] MEDS: CYANOCOBALAMIN (B-12) 500 MCG TABLET PO SCH (09:29)
[2021-06-29] MEDS: METOPROLOL SUCC 50MG EXT REL TAB PO SCH (09:29)
--- NOTE | 2021-06-29 18:23 | Hospitalist Progress Note ---
Date of Service June 29, 2021 Assessment & Plan (1) COVID-19: Plan: * Presented to the ED on 06/24 with weakness. Rapid Covid test negative at that time * Had persistent weakness with SOB that developed on 06/28 but SOB improved following 1 dose of Zaroxolyn. Repeat Covid test (PCR) performed and positive * I suspect her initial Covid test was a false negative but cannot confirm this. Suspect Covid is likely contributing greatly to her weakness * She is vaccinated and boosted * Fortunately, no respiratory symptoms at this time * PT/OT has recommended rehab but will need 10 days of quarantine before hand (2) SOB (shortness of breath): Plan: * Had not had any respiratory symptoms since admission * Did seem to have more right-sided symptoms and admitted to missing several doses of Bumex prior to this hospital stay * Had been on IV Bumex but despite that, developed shortness of breath without h ypoxemia * CXR and BNP obtained in 1 dose of Zaroxolyn given * Clinically, did seem to have bibasilar crackles, JVD, and increasing edema of the lower extremities. * Patient's shortness of breath has completely resolved following additional diuresis * In the interim, she also had a repeat Covid test that has come back positive. * Suspect her shortness of breath was related to slight volume overload in the setting of Covid with known underlying CHF. (3) Bilateral leg weakness: Plan: 85-year-old white female with an underlying past medical history of atrial fibrillation, pulmonary fibrosis, CHF, HTN, HLD and GERD presented to the ED following a controlled ground-level fall. Was ambulating from the bathroom when her "legs stopped working" which prompted her to lower herself to the ground resulting in a ground-level fall. No injury. Brought to the emergency department for further evaluation and care SUSPECT MULTIFACTORIAL: * Covid, general decline from recent hospitalization, mild uncompensated CHF with leg edema (making legs heavy and difficult to move), B12 deficiency, PAD, subclinical hypothyroidism * PT/OT recommending rehab-- pt agreeable. consult case mgmt (4) UTI (urinary tract infection): Plan: * Pansensitive E. coli * May be contributing to underlying weakness * No significant urinary complaints however. Patient afebrile with normal WBC c ount * completed 4 days IV Rocephin-- appropriate for uncomplicated UTI (5) B12 deficiency: Plan: * Likely contributing to leg weakness as low level of normal (353) * Give IM cyanocobalamin x1 and oral supplementation started * Will need repeat B12 level in 3 months to trend (6) PAD (peripheral artery disease): Plan: * ABIs done given reports of bilateral leg weakness and difficulty walking * HELLEN consistent with moderate PAD in the left lower extremity (0.78) * Start aspirin 81 mg daily * Aspirin to be used cautiously as patient on concurrent Eliquis as well. She is already on PPI which will help provide GI prophylaxis * Unfortunately, Eliquis will not help with microvascular disease * Will need to monitor H&H closely (7) Hypothyroid: Plan: * TSH has been elevated since 05/01 (6.9 then 5.4, currently 5.3) * At this time, she likely has subclinical hypothyroidism and this could be contributing to her symptomatology * Given her underlying history of CHF and A. fib, I do think it would be oden to initiate treatment * free T4 normal at 1.07, total t3 low level normal at 78 (reference range 76- 181), * Started on Synthroid 25 mcg daily * Will need follow-up TSH in 6 weeks (8) Hypomagnesemia: Plan: * replaced/resolved (9) (HFpEF) heart failure with preserved ejection fraction: Plan: * Patient with known CHFdiastolic * EF as of 05/01 was preserved at 55 to 60% with diastolic dysfunction * Clinically compensated today following additional diuresis as outlined above * Can follow-up with Coby Strauss PA-C with whom patient is established (10) Persistent atrial fibrillation: Plan: * Currently with controlled ventricular rate * Continue metoprolol and Eliquis as prior to hospitalization Plan: Plan of care will be discussed with Dr. Xiong Further orders as warranted. Admission and Anticipated Discharge Date Admission Date: June 26, 2021 Subjective Patient seen on daily rounds today. She had a repeat Covid test last evening and subsequently this has come back positive. Fortunately she is not having any complaints. She denies nasal congestion, sore throat, cough, change of taste/smell, fevers or chills. Denies shortness of breath. Did have brief shortness of breath yesterday but this improved following 1 dose of Zaroxolyn. Her only complaint is weakness. Review of Systems Review of Systems: All systems reviewed and are unremarkable except as noted in HPI and below Denies fevers, chills, headache, nasal congestion, sore throat, cough, chest pain, shortness of breath, palpitations, orthopnea, PND, abdominal pain, nausea, vomiting, diarrhea, constipation, dysuria, hematuria, frequency, back pain, joint pain or swelling, easy bruising or bleeding, skin lesions or rashes. Physical Exam Physical Exam: General: Resting comfortably in her hospital bed. NAD. HEENT: Head is AT/NC. Buccal mucosa is moist and pink Neck: Mild JVD negative hepatojugular reflex Cardiac: Irregular rhythm but controlled ventricular rate with 1/6 to 2/6 MAMIE Lungs: Normal respiratory effort. Clear to auscultation without wheezes, rales or rhonchi Abdomen: Normoactive X4. Soft and nontender in all quadrants. Extremities: Vascular changes noted of the bilateral lower extremities and + adiposity without pitting edema today Neuro: A&O X4. Cranial nerves II through XII are grossly intact. No focal neuro deficits Skin: No obvious skin lesions or rashes Psych: Appropriate affect. Pleasant and cooperative Results & Data Results & Data ([facility]) Vital Signs (Past 12 Hours) Vital Signs Temp Pulse Resp BP Pulse Ox 06/29/21 15:24 36.4 C L 77 16 118/79 92 Laboratory Results 06/29/21 06:50 06/29/21 06:50 PG Care Time/CCT Total # of Minutes Spent Total Time Spent with Patient: Total time spent is greater than 50% in coordination of care (as documented) at patient's floor/unit and/or counseling patient: Coding Level of Care Code 48516 Subseq Hosp Care Lvl 3 Diagnoses SOB (shortness of breath) R06.02 Bilateral leg weakness R29.898 UTI (urinary tract infection) N39.0 B12 deficiency E53.8 PAD (peripheral artery disease) I73.9 Hypothyroid E03.9 Hypomagnesemia E83.42 (HFpEF) heart failure with preserved ejection fraction I50.30 Persistent atrial fibrillation I48.19 COVID-19 U07.1
[2021-06-30] MEDS: LEVOTHYROXINE SODIUM 25 MCG TABLET PO SCH (06:12)
[2021-06-30 07:02] LABS: Hematocrit (blood only) 47.3 % (37-47); Hemoglobin 15.6 g/dL (12.0-16.0); Mean Corpuscular Volume 96.9 fL (80-100); Mean Platelet Volume 9.9 fL (7.4-10.4); Platelet Count 241 K/uL (130-400); RDW Coefficient of Variation 15.2 % (11.5-14.5); RDW Standard Deviation 54.5 fL (36.4-46.3); Red Blood Count 4.88 M/uL (4.2-5.4); White Blood Count 9.38 K/uL (4.8-10.8)
[2021-06-30 07:33] LABS: BUN Creatinine Ratio 31.9 (10-20); Calcium 9.5 mg/dl (8.5-10.1); Creatinine Clr Calc Pharmacy 39.3 ml/min; Est GFR (African American) 49.4 ml/min; Est GFR (Non-African American) 42.6 ml/min; Potassium 3.7 mmol/L (3.5-5.1)
[2021-06-30] MEDS: APIXABAN 5 MG TABLET PO SCH ×2 (09:08→20:15)
[2021-06-30] MEDS: BUMETANIDE 1 MG TAB PO SCH ×2 (09:08→18:18)
[2021-06-30] MEDS: PANTOprazole 40 MG TAB PO SCH (09:08)
[2021-06-30] MEDS: MAGNESIUM OXIDE 400 MG TAB PO SCH ×2 (09:08→20:15)
[2021-06-30] MEDS: METOPROLOL SUCC 50MG EXT REL TAB PO SCH (09:08)
[2021-06-30] MEDS: ASPIRIN 81 MG ECTAB PO SCH (09:08)
[2021-06-30] MEDS: CYANOCOBALAMIN (B-12) 500 MCG TABLET PO SCH (09:08)
--- NOTE | 2021-06-30 13:17 | Hospitalist Progress Note ---
Date of Service June 30, 2021 Assessment & Plan (1) COVID-19: Plan: * Presented to the ED on 06/24 with weakness. Rapid Covid test negative at that time * Had persistent weakness with SOB that developed on 06/28 but SOB improved following 1 dose of Zaroxolyn. Repeat Covid test (PCR) performed and positive * I suspect her initial Covid test was a false negative but cannot confirm this. Suspect Covid is likely contributing greatly to her weakness * She is vaccinated and boosted * Fortunately, no respiratory symptoms at this time * PT/OT has recommended rehab but will need 10 days of quarantine before hand (2) SOB (shortness of breath): Plan: * Had not had any respiratory symptoms since admission * Did seem to have more right-sided symptoms and admitted to missing several doses of Bumex prior to this hospital stay * Had been on IV Bumex but despite that, developed shortness of breath without h ypoxemia * CXR and BNP obtained in 1 dose of Zaroxolyn given * Patient's shortness of breath has completely resolved following additional diuresis * In the interim, she also had a repeat Covid test that has come back positive. * Suspect her shortness of breath was related to slight volume overload in the setting of Covid with known underlying CHF. (3) Bilateral leg weakness: Plan: 85-year-old white female with an underlying past medical history of atrial fibrillation, pulmonary fibrosis, CHF, HTN, HLD and GERD presented to the ED following a controlled ground-level fall. Was ambulating from the bathroom when her "legs stopped working" which prompted her to lower herself to the ground resulting in a ground-level fall. No injury. Brought to the emergency department for further evaluation and care SUSPECT MULTIFACTORIAL: * Covid, general decline from recent hospitalization, mild uncompensated CHF with leg edema (making legs heavy and difficult to move), B12 deficiency, PAD, subclinical hypothyroidism * PT/OT recommending rehab-- pt agreeable. consult case mgmt (4) UTI (urinary tract infection): Plan: * Pansensitive E. coli s/p Rocephin x 4 days which is sufficient for uncomplicated UTI (5) B12 deficiency: Plan: * Likely contributing to leg weakness as low level of normal (353) * Give IM cyanocobalamin x1 and oral supplementation started * Will need repeat B12 level in 3 months to trend (6) PAD (peripheral artery disease): Plan: * ABIs done given reports of bilateral leg weakness and difficulty walking * HELLEN consistent with moderate PAD in the left lower extremity (0.78) * Started aspirin 81 mg daily * Aspirin to be used cautiously as patient on concurrent Eliquis as well. She is already on PPI which will help provide GI prophylaxis * Unfortunately, Eliquis will not help with microvascular disease * Will need to monitor H&H closely (7) Hypothyroid: Plan: * TSH has been elevated since 05/01 (6.9 then 5.4, currently 5.3) * At this time, she likely has subclinical hypothyroidism and this could be contributing to her symptomatology * Given her underlying history of CHF and A. fib, I do think it would be oden to initiate treatment * free T4 normal at 1.07, total t3 low level normal at 78 (reference range 76- 181), * Started on Synthroid 25 mcg daily * Will need follow-up TSH in 6 weeks (8) Hypomagnesemia: Plan: * replaced/resolved (9) (HFpEF) heart failure with preserved ejection fraction: Plan: * Patient with known CHFdiastolic * EF as of 05/01 was preserved at 55 to 60% with diastolic dysfunction * Clinically compensated today following additional diuresis as outlined above * Can follow-up with Coby Strauss PA-C with whom patient is established (10) Persistent atrial fibrillation: Plan: * Currently with controlled ventricular rate * Continue metoprolol and Eliquis as prior to hospitalization Plan: Care as outlined above No need for follow up labs in AM Continue PT/OT Case management following for d/c planning, would be completed w/ 10-day quarantine on 07/08 Admission and Anticipated Discharge Date Admission Date: June 26, 2021 Subjective Patient seen on daily rounds today. She had a repeat Covid test on 06/28 and subsequently this has come back positive. Fortunately she is not having any complaints. She denies nasal congestion, sore throat, cough, change of taste/smell, fevers or chills. Denies shortness of breath. Her only complaint is weakness in her legs. She is for d/c to rehab but has to quarantine x 10 days prior to d/c. Review of Systems Review of Systems: All systems reviewed and are unremarkable except as noted in HPI and below Denies fevers, chills, headache, nasal congestion, sore throat, cough, chest pain, shortness of breath, palpitations, orthopnea, PND, abdominal pain, nausea, vomiting, diarrhea, constipation, dysuria, hematuria, frequency, back pain, joint pain or swelling, easy bruising or bleeding, skin lesions or rashes. Physical Exam Physical Exam: GENERAL: 85 yo well-developed, well-nourished elderly WF. NAD. LUNGS: Coarse bibasilar crackles. No wheezes or rhonchi appreciated. Nonlabored breathing. CARDIOVASCULAR: Regular rate and rhythm. No M/G/R. No JVD. ABDOMEN: Soft, non-tender and non-distended. BS normal x 4 quad. EXTREMITIES: No edema. Non-tender. Peripheral pulses +2/4. NEUROLOGIC: A&O x3. PSYCHIATRIC: Cooperative. Appropriate mood and affect. SKIN: Warm, dry, intact. No rashes or lesions. Results & Data Results & Data ([facility]) Vital Signs (Past 12 Hours) Vital Signs Temp Pulse Resp BP Pulse Ox 06/30/21 08:42 36.4 C L 80 18 134/79 91 Laboratory Results 06/30/21 06:46 06/30/21 06:46 PG Care Time/CCT Total # of Minutes Spent Total Time Spent with Patient: Total time spent is greater than 50% in coordination of care (as documented) at patient's floor/unit and/or counseling patient: Coding Level of Care Code 64461 Subseq Hosp Care Lvl 2 Diagnoses COVID-19 U07.1 SOB (shortness of breath) R06.02 Bilateral leg weakness R29.898 UTI (urinary tract infection) N39.0 B12 deficiency E53.8 PAD (peripheral artery disease) I73.9 Hypothyroid E03.9 Hypomagnesemia E83.42 (HFpEF) heart failure with preserved ejection fraction I50.30 Persistent atrial fibrillation I48.19
[2021-06-30] MEDS: LOPERAMIDE HCL 2 MG CAP PO PRN (20:15)
[2021-07-01] MEDS: LEVOTHYROXINE SODIUM 25 MCG TABLET PO SCH (05:05)
[2021-07-01] MEDS: LOPERAMIDE HCL 2 MG CAP PO PRN ×2 (05:05→13:54)
[2021-07-01] MEDS: APIXABAN 5 MG TABLET PO SCH ×2 (09:10→20:49)
[2021-07-01] MEDS: METOPROLOL SUCC 50MG EXT REL TAB PO SCH (09:11)
[2021-07-01] MEDS: CYANOCOBALAMIN (B-12) 500 MCG TABLET PO SCH (09:11)
[2021-07-01] MEDS: PANTOprazole 40 MG TAB PO SCH (09:11)
[2021-07-01] MEDS: BUMETANIDE 1 MG TAB PO SCH ×2 (09:11→17:44)
[2021-07-01] MEDS: MAGNESIUM OXIDE 400 MG TAB PO SCH ×2 (09:11→20:48)
[2021-07-01] MEDS: ASPIRIN 81 MG ECTAB PO SCH (09:11)
--- NOTE | 2021-07-01 14:13 | Hospitalist Progress Note ---
Date of Service July 01, 2021 Assessment & Plan (1) COVID-19: Plan: * Presented to the ED on 06/24 with weakness. Rapid Covid test negative at that time * Had persistent weakness with SOB that developed on 06/28 but SOB improved following 1 dose of Zaroxolyn. Repeat Covid test (PCR) performed and positive * I suspect her initial Covid test was a false negative but cannot confirm this. Suspect Covid is likely contributing greatly to her weakness * She is vaccinated and boosted * Fortunately, no respiratory symptoms at this time * PT/OT has recommended rehab but will need 10 days of quarantine before hand (2) SOB (shortness of breath): Plan: * Had not had any respiratory symptoms since admission * Did seem to have more right-sided symptoms and admitted to missing several doses of Bumex prior to this hospital stay * Had been on IV Bumex but despite that, developed shortness of breath without hypoxemia * CXR and BNP obtained in 1 dose of Zaroxolyn given * Patient's shortness of breath has completely resolved following additional diuresis * In the interim, she also had a repeat Covid test that has come back positive. * Suspect her shortness of breath was related to slight volume overload in the setting of Covid with known underlying CHF. (3) Bilateral leg weakness: Plan: 85-year-old white female with an underlying past medical history of atrial fibrillation, pulmonary fibrosis, CHF, HTN, HLD and GERD presented to the ED following a controlled ground-level fall. Was ambulating from the bathroom when her "legs stopped working" which prompted her to lower herself to the ground resulting in a ground-level fall. No injury. Brought to the emergency department for further evaluation and care SUSPECT MULT[employer]ACTOR[employer]: * Covid, general decline from recent hospitalization, mild uncompensated CHF with leg edema (making legs heavy and difficult to move), B12 deficiency, PAD, subclinical hypothyroidism * PT/OT recommending rehab-- pt agreeable. consult case mgmt (4) UTI (urinary tract infection): Plan: * Pansensitive E. coli s/p Rocephin x 4 days which is sufficient for uncomplicated UTI (5) B12 deficiency: Plan: * Likely contributing to leg weakness as low level of normal (353) * Give IM cyanocobalamin x1 and oral supplementation started * Will need repeat B12 level in 3 months to trend (6) PAD (peripheral artery disease): Plan: * ABIs done given reports of bilateral leg weakness and difficulty walking * HELLEN consistent with moderate PAD in the left lower extremity (0.78) * Started aspirin 81 mg daily * Aspirin to be used cautiously as patient on concurrent Eliquis as well. She is already on PPI which will help provide GI prophylaxis * Unfortunately, Eliquis will not help with microvascular disease * Will need to monitor H&H closely (7) Hypothyroid: Plan: * TSH has been elevated since 05/01 (6.9 then 5.4, currently 5.3) * At this time, she likely has subclinical hypothyroidism and this could be contributing to her symptomatology * Given her underlying history of CHF and A. fib, I do think it would be oden to initiate treatment * free T4 normal at 1.07, total t3 low level normal at 78 (reference range 76- 181), * Started on Synthroid 25 mcg daily * Will need follow-up TSH in 6 weeks (8) Hypomagnesemia: Plan: * replaced/resolved (9) (HFpEF) heart failure with preserved ejection fraction: Plan: * Patient with known CHFdiastolic * EF as of 05/01 was preserved at 55 to 60% with diastolic dysfunction * Clinically compensated today following additional diuresis as outlined above * Can follow-up with Coby tSrauss PA-C with whom patient is established (10) Persistent atrial fibrillation: Plan: * Currently with controlled ventricular rate * Continue metoprolol and Eliquis as prior to hospitalization Plan: Care as outlined above Continue PT/OT Case management following for d/c planning, would be completed w/ 10-day quarantine on 07/08 Admission and Anticipated Discharge Date Admission Date: June 26, 2021 Subjective Patient seen on daily rounds today. She had a repeat Covid test on 06/28 and subsequently this has come back positive. Fortunately she is not having any complaints. She denies nasal congestion, sore throat, cough, change of taste/smell, fevers or chills. Denies shortness of breath. She is for d/c to rehab but has to quarantine x 10 days prior to d/c. Review of Systems Review of Systems: All systems reviewed and are unremarkable except as noted in HPI and below Denies fevers, chills, headache, nasal congestion, sore throat, cough, chest pain, shortness of breath, palpitations, orthopnea, PND, abdominal pain, nausea, vomiting, diarrhea, constipation, dysuria, hematuria, frequency, back pain, joint pain or swelling, easy bruising or bleeding, skin lesions or rashes. Physical Exam Physical Exam: GENERAL: 85 yo well-developed, well-nourished elderly WF. NAD. LUNGS: Coarse bibasilar crackles. No wheezes or rhonchi appreciated. Nonlabored breathing. CARDIOVASCULAR: Regular rate and rhythm. ABDOMEN: Soft, non-tender and non-distended. BS normal x 4 quad. EXTREMITIES: No edema. Non-tender. Peripheral pulses +2/4. NEUROLOGIC: A&O x3. PSYCHIATRIC: Cooperative. Appropriate mood and affect. SKIN: Warm, dry, intact. No rashes or lesions. Results & Data Results & Data ([facility]) Vital Signs (Past 12 Hours) Vital Signs Temp Pulse Resp BP Pulse Ox 07/01/21 13:55 36.6 C 91 H 18 145/96 H 92 07/01/21 08:31 36.7 C 84 18 131/84 90 PG Care Time/CCT Total # of Minutes Spent Total Time Spent with Patient: Total time spent is greater than 50% in coordination of care (as documented) at patient's floor/unit and/or counseling patient: Coding Level of Care Code 94639 Subseq Hosp Care Lvl 2 Diagnoses COVID-19 U07.1 SOB (shortness of breath) R06.02 Bilateral leg weakness R29.898 UTI (urinary tract infection) N39.0 B12 deficiency E53.8 PAD (peripheral artery disease) I73.9 Hypothyroid E03.9 Hypomagnesemia E83.42 (HFpEF) heart failure with preserved ejection fraction I50.30 Persistent atrial fibrillation I48.19
[2021-07-02] MEDS: LEVOTHYROXINE SODIUM 25 MCG TABLET PO SCH (05:26)
[2021-07-02] MEDS ORDERED: dexAMETHasone 6 MG in SYRINGE 0 ML IV SCH (08:30)
[2021-07-02] MEDS ORDERED: BUMETANIDE 1 MG in SYRINGE 0 ML IV ONE (08:30)
[2021-07-02] MEDS: PANTOprazole 40 MG TAB PO SCH (09:05)
[2021-07-02] MEDS: METOPROLOL SUCC 50MG EXT REL TAB PO SCH (09:05)
[2021-07-02] MEDS: MAGNESIUM OXIDE 400 MG TAB PO SCH ×2 (09:06→21:58)
[2021-07-02] MEDS: BUMETANIDE 1 MG TAB PO SCH ×2 (09:06→18:40)
[2021-07-02] MEDS: ASPIRIN 81 MG ECTAB PO SCH (09:06)
[2021-07-02] MEDS: APIXABAN 5 MG TABLET PO SCH ×2 (09:06→21:58)
[2021-07-02] MEDS: CYANOCOBALAMIN (B-12) 500 MCG TABLET PO SCH (09:06)
[2021-07-02 09:22] LABS: BUN Creatinine Ratio 36.3 (10-20); Calcium 9.4 mg/dl (8.5-10.1); Creatinine Clr Calc Pharmacy 32.7 ml/min; Est GFR (African American) 41.1 ml/min; Est GFR (Non-African American) 35.5 ml/min
[2021-07-02 09:32] LABS: Potassium 3.3 mmol/L (3.5-5.1)
--- NOTE | 2021-07-02 12:29 | Hospitalist Progress Note ---
Date of Service July 02, 2021 Assessment & Plan (1) COVID-19: Plan: * Presented to the ED on 06/24 with weakness. Rapid Covid test negative at that time * Had persistent weakness with SOB that developed on 06/28 but SOB improved following 1 dose of Zaroxolyn. Repeat Covid test (PCR) performed and positive * I suspect her initial Covid test was a false negative but cannot confirm this. Suspect Covid is likely contributing greatly to her weakness * She is vaccinated and boosted * Fortunately, no respiratory symptoms at this time * PT/OT has recommended rehab but will need 10 days of quarantine before hand * Given a dose of IV Decadron 6mg on 07/02 due to her report of being hypoxic overnight; however, believe this is likely chronic as she is now on room air and not related to her COVID diagnosis. (2) SOB (shortness of breath): Plan: * Had not had any respiratory symptoms since admission * Did seem to have more right-sided symptoms and admitted to missing several doses of Bumex prior to this hospital stay * Had been on IV Bumex but despite that, developed shortness of breath without hypoxemia * CXR and BNP obtained in 1 dose of Zaroxolyn given w/ improvement on 06/28 * Patient's shortness of breath has completely resolved following additional diuresis * In the interim, she also had a repeat Covid test that has come back positive. * Suspect her shortness of breath was related to slight volume overload in the setting of Covid with known underlying CHF. * Additional dose of IV Bumex 1mg ordered today (07/02) for overnight hypoxemia but I suspect that her nocturnal hypoxia is not new and she has since been weaned off O2. (3) Bilateral leg weakness: Plan: 85-year-old white female with an underlying past medical history of atrial fibrillation, pulmonary fibrosis, CHF, HTN, HLD and GERD presented to the ED following a controlled ground-level fall. Was ambulating from the bathroom when her "legs stopped working" which prompted her to lower herself to the ground resulting in a ground-level fall. No injury. Brought to the emergency department for further evaluation and care SUSPECT MULTIFACTOR[employer]: * Covid, general decline from recent hospitalization, mild uncompensated CHF with leg edema (making legs heavy and difficult to move), B12 deficiency, PAD, subclinical hypothyroidism * PT/OT recommending rehab-- pt agreeable. consult case mgmt (4) B12 deficiency: Plan: * Likely contributing to leg weakness as low level of normal (353) * Give IM cyanocobalamin x1 and oral supplementation started * Will need repeat B12 level in 3 months to trend (5) PAD (peripheral artery disease): Plan: * ABIs done given reports of bilateral leg weakness and difficulty walking * HELLEN consistent with moderate PAD in the left lower extremity (0.78) * Started aspirin 81 mg daily * Aspirin to be used cautiously as patient on concurrent Eliquis as well. She is already on PPI which will help provide GI prophylaxis * Unfortunately, Eliquis will not help with microvascular disease * Will need to monitor H&H closely (6) Hypothyroid: Plan: * TSH has been elevated since 05/01 (6.9 then 5.4, currently 5.3) * At this time, she likely has subclinical hypothyroidism and this could be contributing to her symptomatology * Given her underlying history of CHF and A. fib, I do think it would be oden to initiate treatment * free T4 normal at 1.07, total t3 low level normal at 78 (reference range 76- 181), * Started on Synthroid 25 mcg daily * Will need follow-up TSH in 6 weeks (7) Hypomagnesemia: Plan: * replaced/resolved (8) (HFpEF) heart failure with preserved ejection fraction: Plan: * Patient with known CHFdiastolic * EF as of 05/01 was preserved at 55 to 60% with diastolic dysfunction * Clinically compensated today following additional diuresis as outlined above * Can follow-up with Coby Strauss PA-C with whom patient is established * Continue maintenance dose Bumex as ordered. (9) Persistent atrial fibrillation: Plan: * Currently with controlled ventricular rate * Continue metoprolol and Eliquis as prior to hospitalization Plan: Care as outlined above Continue PT/OT Case management following for d/c planning, would be completed w/ 10-day quarantine on 07/08 Admission and Anticipated Discharge Date Admission Date: June 26, 2021 Subjective Patient seen on daily rounds today. She had a repeat Covid test on 06/28 and subsequently this has come back positive. Fortunately she is not having any complaints. She denies nasal congestion, sore throat, cough, change of taste/smell, fevers or chills. Denies shortness of breath. She is for d/c to rehab but has to quarantine x 10 days prior to d/c. Pt noted to be on O2 on VS this AM due to desaturating overnight while sleeping. She does have O2 at home that she wears chronically when she is up ambulating. Review of Systems Review of Systems: All systems reviewed and are unremarkable except as noted in HPI and below Denies fevers, chills, headache, nasal congestion, sore throat, cough, chest pain, shortness of breath, palpitations, orthopnea, PND, abdominal pain, nausea, vomiting, diarrhea, constipation, dysuria, hematuria, frequency, back pain, joint pain or swelling, easy bruising or bleeding, skin lesions or rashes. Physical Exam Physical Exam: GENERAL: 85 yo well-developed, well-nourished elderly WF. NAD. LUNGS: Coarse bibasilar crackles. No wheezes or rhonchi appreciated. Nonlabored breathing. CARDIOVASCULAR: Regular rate and rhythm. ABDOMEN: Soft, non-tender and non-distended. BS normal x 4 quad. EXTREMITIES: No edema. Non-tender. Peripheral pulses +2/4. NEUROLOGIC: A&O x3. PSYCHIATRIC: Cooperative. Appropriate mood and affect. SKIN: Warm, dry, intact. No rashes or lesions. Results & Data Results & Data ([facility]) Vital Signs (Past 12 Hours) Vital Signs Temp Pulse Pulse Resp BP Pulse Ox 07/02/21 08:30 36.5 C 71 18 118/76 95 07/02/21 05:53 36.4 C L 91 H 22 133/91 97 Laboratory Results No labs done today PG Care Time/CCT Total # of Minutes Spent Total Time Spent with Patient: Total time spent is greater than 50% in coordination of care (as documented) at patient's floor/unit and/or counseling patient: Coding Level of Care Code 21582 Subseq Hosp Care Lvl 2 Diagnoses COVID-19 U07.1 SOB (shortness of breath) R06.02 Bilateral leg weakness R29.898 B12 deficiency E53.8 PAD (peripheral artery disease) I73.9 Hypothyroid E03.9 Hypomagnesemia E83.42 (HFpEF) heart failure with preserved ejection fraction I50.30 Persistent atrial fibrillation I48.19
[2021-07-02] MEDS: LOPERAMIDE HCL 2 MG CAP PO PRN (18:40)
[2021-07-03] MEDS: LEVOTHYROXINE SODIUM 25 MCG TABLET PO SCH (06:00)
[2021-07-03] MEDS ORDERED: POTASSIUM CHLORIDE CRTAB 20 MEQ TABCR PO STA (08:19)
[2021-07-03] MEDS ORDERED: SODIUM CHLORIDE 0.9% 500 ML IV SCH (08:30)
[2021-07-03] MEDS: LOPERAMIDE HCL 2 MG CAP PO PRN ×2 (09:56→17:53)
[2021-07-03] MEDS: APIXABAN 5 MG TABLET PO SCH ×2 (09:56→20:32)
[2021-07-03] MEDS: MAGNESIUM OXIDE 400 MG TAB PO SCH ×2 (09:56→20:32)
[2021-07-03] MEDS: ASPIRIN 81 MG ECTAB PO SCH (09:57)
[2021-07-03] MEDS: METOPROLOL SUCC 50MG EXT REL TAB PO SCH (09:57)
[2021-07-03] MEDS: CYANOCOBALAMIN (B-12) 500 MCG TABLET PO SCH (09:57)
[2021-07-03] MEDS: PANTOprazole 40 MG TAB PO SCH (09:57)
[2021-07-03] MEDS: BUMETANIDE 1 MG TAB PO SCH ×2 (09:57→17:53)
--- NOTE | 2021-07-03 15:00 | Hospitalist Progress Note ---
Date of Service July 03, 2021 Assessment & Plan (1) COVID-19: Plan: * Presented to the ED on 06/24 with weakness. Rapid Covid test negative at that time * Had persistent weakness with SOB that developed on 06/28 but SOB improved following 1 dose of Zaroxolyn. Repeat Covid test (PCR) performed and positive * I suspect her initial Covid test was a false negative but cannot confirm this. Suspect Covid is likely contributing greatly to her weakness * She is vaccinated and boosted * Fortunately, no respiratory symptoms at this time * PT/OT has recommended rehab * Given a dose of IV Decadron 6mg & Bumex 1mg on 07/02 due to her report of being hypoxic overnight; however, believe this is likely chronic as she is now on room air and not related to her COVID diagnosis. * Suspect she is now slightly hypovolemic, will gently hydrate w/ 500 cc of NSS and stop. (2) Bilateral leg weakness: Plan: 85-year-old white female with an underlying past medical history of atrial fibrillation, pulmonary fibrosis, CHF, HTN, HLD and GERD presented to the ED following a controlled ground-level fall. Was ambulating from the bathroom when her "legs stopped working" which prompted her to lower herself to the ground resulting in a ground-level fall. No injury. Brought to the emergency department for further evaluation and care SUSPECT MULTIFACTORIAL: * Covid, general decline from recent hospitalization, mild uncompensated CHF with leg edema (making legs heavy and difficult to move), B12 deficiency, PAD, subclinical hypothyroidism * PT/OT recommending rehab-- pt agreeable. consulted case management, bed found at [facility] w/ a COVID unit. (3) B12 deficiency: Plan: * Likely contributing to leg weakness as low level of normal (353) * Give IM cyanocobalamin x1 and oral supplementation started * Will need repeat B12 level in 3 months to trend (4) PAD (peripheral artery disease): Plan: * ABIs done given reports of bilateral leg weakness and difficulty walking * HELLEN consistent with moderate PAD in the left lower extremity (0.78) * Started aspirin 81 mg daily * Aspirin to be used cautiously as patient on concurrent Eliquis as well. She is already on PPI which will help provide GI prophylaxis * Unfortunately, Eliquis will not help with microvascular disease (5) Hypothyroid: Plan: * TSH has been elevated since 05/01 (6.9 then 5.4, currently 5.3) * At this time, she likely has subclinical hypothyroidism and this could be contributing to her symptomatology * Given her underlying history of CHF and A. fib, I do think it would be oden to initiate treatment * free T4 normal at 1.07, total t3 low level normal at 78 (reference range 76- 181), * Started on Synthroid 25 mcg daily * Will need follow-up TSH in 6 weeks (6) Hypomagnesemia: Plan: * replaced/resolved (7) (HFpEF) heart failure with preserved ejection fraction: Plan: * Patient with known CHFdiastolic * EF as of 05/01 was preserved at 55 to 60% with diastolic dysfunction * Clinically compensated today following additional diuresis as outlined above * Can follow-up with Coby Strauss PA-C with whom patient is established * Continue maintenance dose Bumex as ordered. (8) Persistent atrial fibrillation: Plan: * Currently with controlled ventricular rate * Continue metoprolol and Eliquis as prior to hospitalization Plan: Continue PT/OT services, gentle hydration as noted above. Case management following for discharge planning -- for d/c to [facility] in [place] tomorrow, auth received. Updated patient's daughter on 07/02 and while she was not exactly thrilled because the location of the facility is over an hour away from where she normally lives, it is our only option at this time and since she no longer requires hospitalization, this is where she will be discharged. Family can always make arrangements to transfer the patient to a closer facility ongoing rehab is needed past her quarantine period. Unfortunately, because of her COVID diagnosis, this is what is complicating her discharge. Suspect she has undiagnosed sleep apnea and should have a formal sleep study done as an outpatient in order to qualify her for cpap. Admission and Anticipated Discharge Date Admission Date: June 26, 2021 Subjective Patient seen on daily rounds today. She had a repeat Covid test on 06/28 and subsequently this has come back positive. Fortunately she is not having any complaints. She denies nasal congestion, sore throat, cough, change of taste/smell, fevers or chills. Denies shortness of breath. She does wear O2 chronically at home w/ ambulation. Review of Systems Review of Systems: All systems reviewed and are unremarkable except as noted in HPI and below Denies fevers, chills, headache, nasal congestion, sore throat, cough, chest pain, shortness of breath, palpitations, orthopnea, PND, abdominal pain, nausea, vomiting, diarrhea, constipation, dysuria, hematuria, frequency, back pain, joint pain or swelling, easy bruising or bleeding, skin lesions or rashes. Physical Exam Physical Exam: GENERAL: 85 yo well-developed, well-nourished elderly WF. NAD. LUNGS: Coarse bibasilar crackles. No wheezes or rhonchi appreciated. Nonlabored breathing. CARDIOVASCULAR: Regular rate and rhythm. ABDOMEN: Soft, non-tender and non-distended. BS normal x 4 quad. EXTREMITIES: No edema. Non-tender. Peripheral pulses +2/4. NEUROLOGIC: A&O x3. PSYCHIATRIC: Cooperative. Appropriate mood and affect. SKIN: Warm, dry, intact. No rashes or lesions. Results & Data Results & Data ([facility]) Vital Signs (Past 12 Hours) Vital Signs Temp Pulse Resp BP Pulse Ox 07/03/21 10:06 36.5 C 86 16 125/77 91 Laboratory Results 06/30/21 06:46 07/02/21 08:23 PG Care Time/CCT Total # of Minutes Spent Total Time Spent with Patient: Total time spent is greater than 50% in coordination of care (as documented) at patient's floor/unit and/or counseling patient: Coding Level of Care Code 84076 Subseq Hosp Care Lvl 1 Diagnoses COVID-19 U07.1 Bilateral leg weakness R29.898 B12 deficiency E53.8 PAD (peripheral artery disease) I73.9 Hypothyroid E03.9 Hypomagnesemia E83.42 (HFpEF) heart failure with preserved ejection fraction I50.30 Persistent atrial fibrillation I48.19
[2021-07-04] MEDS: LEVOTHYROXINE SODIUM 25 MCG TABLET PO SCH (05:38)
[2021-07-04 07:55] LABS: Basophils # (auto) 0.04 K/uL (0-0.2); Basophils % (auto) 0.4 %; Eosinophils # (auto) 0.24 K/uL (0-0.5); Eosinophils % (auto) 2.4 %; Hematocrit (blood only) 49.1 % (37-47); Hemoglobin 16.4 g/dL (12.0-16.0); Immature Granulocytes # (auto) 0.05 K/uL (0.00-0.02); Immature Granulocytes % (auto) 0.5 %; Lymphocytes # (auto) 3.07 K/uL (1.2-3.4); Lymphocytes % (auto) 30.9 %; Mean Corpuscular Hemoglobin 32.1 pg (25-34); Mean Corpuscular Hgb Conc 33.4 g/dL (32-36); Mean Corpuscular Volume 96.1 fL (80-100); Mean Platelet Volume 9.8 fL (7.4-10.4); Monocytes # (auto) 1.05 K/uL (0.11-0.59); Monocytes % (auto) 10.6 %; Neutrophils # (auto) 5.49 K/uL (1.4-6.5); Neutrophils % (auto) 55.2 %; Platelet Count 274 K/uL (130-400); RDW Coefficient of Variation 14.8 % (11.5-14.5); RDW Standard Deviation 52.6 fL (36.4-46.3); Red Blood Count 5.11 M/uL (4.2-5.4); White Blood Count 9.94 K/uL (4.8-10.8)
[2021-07-04 08:19] LABS: BUN Creatinine Ratio 46.7 (10-20); Calcium 9.3 mg/dl (8.5-10.1); Est GFR (African American) 47.4 ml/min; Est GFR (Non-African American) 40.9 ml/min; Potassium 3.9 mmol/L (3.5-5.1)
[2021-07-04] MEDS: APIXABAN 5 MG TABLET PO SCH (09:46)
[2021-07-04] MEDS: CYANOCOBALAMIN (B-12) 500 MCG TABLET PO SCH (09:46)
[2021-07-04] MEDS: MAGNESIUM OXIDE 400 MG TAB PO SCH (09:46)
[2021-07-04] MEDS: ASPIRIN 81 MG ECTAB PO SCH (09:46)
[2021-07-04] MEDS: BUMETANIDE 1 MG TAB PO SCH (09:46)
[2021-07-04] MEDS: METOPROLOL SUCC 50MG EXT REL TAB PO SCH (09:47)
[2021-07-04] MEDS: PANTOprazole 40 MG TAB PO SCH (09:47)
--- NOTE | 2021-07-04 11:21 | Discharge Summary ---
Date of Service July 04, 2021 Admission HPI Per Admitting Provider 85 YOF with past medcial history of: Afib (on Apixaban) onset in , HFpEF, Mitral Regurge, Pulmonary fibrosis, chronic bilateral lower extremity weakness, lower extrimity edema, HTN, GERD, hypomagnesemia, HLD (not on medicaiton). Patient comes in with complaint of increase leg fatigue and overall generalized fatigue. The patient states that his been ongoing for the past 2 days. She generally states she thought she was improving following her admission in Apr, but just feels like she is running out of gas. She is accompanied by her daughter today, and her daughter also notices decreasing in speed and increase in fatigue. In the EMD the patient had routine labs performed, ECG, CXR and UA done. Her BP is 97/67 Noting a UA with positive nitrites, (-) LE, 4+ bacteria with 1-5 WBC in urine. She was started on Rocephin 2GM IV for this. She received 1liter of saline with increase in her BP as well. She denies any fevers, chills but does note increase in urinary incontinence. She also endorses mouth feeling more dry than usual. Will admit to medical floor, continue with antibiotics while awaiting her urine culture, will hold her diuretics. Patient has noted pulmonary fibrosis without oxygen dependancy at home- Noted RV dilation on ECHO had CT scan peformed on Apr admission with increase in pulmonary trunk size likely consistent with pulmonary HTN, she is not on CPAP at home. PCP notes pulmonary visit scheduled for July COVID test on admission is: NEGATIVE Principal Diagnosis 1. Uncomplicated UTI s/p antibiotic treatment 2. Debility 3. COVID-19 4. Subclinical hypothyroidism Discharge Exam GENERAL: 85 yo well-developed, well-nourished elderly WF. NAD. LUNGS: Coarse bibasilar crackles. No wheezes or rhonchi appreciated. Nonlabored breathing. CARDIOVASCULAR: Regular rate and rhythm. ABDOMEN: Soft, non-tender and non-distended. BS normal x 4 quad. EXTREMITIES: No edema. Non-tender. Peripheral pulses +2/4. NEUROLOGIC: A&O x3. PSYCHIATRIC: Cooperative. Appropriate mood and affect. SKIN: Warm, dry, intact. No rashes or lesions. Discharge Data Allergies Allergy/AdvReac Type Severity Reaction Status Date / Time Sulfa (Sulfonamide Allergy Unknown Unknown Verified 06/24/21 18:07 Antibiotics) Ordered Studies Chest X-Ray 06/24/21 17:10 XR chest 1V portable CLINICAL HISTORY: weakness TECHNIQUE: Single frontal radiograph of the chest was obtained. Comparison: Comparison is made to chest one view 04/18/2021 FINDINGS: No lines and tubes are seen. Cardiomegaly is noted. Interstitial thickening is seen. No evidence of pulmonary edema. No evidence of pleural effusion or pneumothorax. Degenerative changes are seen in the right greater than left glenohumeral joints. IMPRESSION: No acute chest disease. Cardiomegaly. ACT 112: Negative or not required by law. Electronically signed by: Enzo Solorzano M.D. 06/24/2021 6:00 PM Ankle Brachial Index 06/25/21 12:04 US ankle/brachial index ltd HISTORY: 85 years-old Female assess flow decreased pedal pulses with bilateral lower extremity edema COMPARISON: None TECHNIQUE: Segmental pressure with ABIs were obtained of the lower extremities FINDINGS: The right brachial artery was not recorded. The left brachial measures 134. Right: Dorsalis pedis-147 (1.10); posterior tibial-142 (1.06) Left: Dorsalis pedis-147 (1.10); posterior tibial-105 (0.78). IMPRESSION: Moderately decreased HELLEN of the left posterior tibial artery. ACT 112: Negative or not required by law. The above report was generated using voice recognition software. It may contain grammatical, syntax or spelling errors. Electronically signed by: Woodrow Alvarez M.D. 06/25/2021 6:02 PM Hand X-Ray 06/28/21 09:29 XR hand RT 2V HISTORY: 85 years-old Female right finger pain acute pain with soft tissue swelling of the right fifth finger COMPARISON: None TECHNIQUE: 2 views of the right hand FINDINGS: Demineralized appearance of the bones with severe multifocal osteoarthritis and chronic remodeling changes. Chondrocalcinosis of the TFCC. There is mild diffuse soft tissue prominence. Mild dorsal subluxation of the fifth DIP joint with apex ulnar angulation. No acute fracture or dislocation is identified. IMPRESSION: 1. No acute fracture. 2. Severe multifocal osteoarthritis. 3. Mild angulation and subluxation of the fifth DIP joint is favored to be degenerative. Correlate with clinical exam findings. ACT 112: Negative or not required by law. The above report was generated using voice recognition software. It may contain grammatical, syntax or spelling errors. Electronically signed by: Woodrow Alvarez M.D. 06/28/2021 10:13 AM Chest X-Ray 06/28/21 16:00 XR chest 1V portable CLINICAL HISTORY: SOB. ? CHF TECHNIQUE: Single frontal radiograph of the chest was obtained. Comparison: Comparison is made to chest one view 06/24/2021 FINDINGS: No lines and tubes are seen. Cardiomegaly is noted. Airspace opacities in the right upper lobe. Lungs are underinflated. No evidence of pleural effusion or pneumothorax. IMPRESSION: Airspace opacity in the right upper lobe which may represent atelectasis, pneumonia, and/or aspiration. ACT 112: Negative or not required by law. Electronically signed by: Enzo Solorzano M.D. 06/28/2021 4:32 PM Hospital Course (1) COVID-19: * Presented to the ED on 06/24 with weakness. Rapid Covid test negative at that time * Had persistent weakness with SOB that developed on 06/28 but SOB improved following 1 dose of Zaroxolyn. Repeat Covid test (PCR) performed and positive * I suspect her initial Covid test was a false negative but cannot confirm this. Suspect Covid is likely contributing greatly to her weakness * She is vaccinated and boosted * Fortunately, no respiratory symptoms at this time * PT/OT has recommended rehab * Given a dose of IV Decadron 6mg & Bumex 1mg on 07/02 due to her report of being hypoxic overnight; however, believe this is likely chronic as she is now on room air and not related to her COVID diagnosis. * She was gently hydrated with 500 cc of NSS on 07/03 due to slight hypovolemia d/t overdiuresis (2) Bilateral leg weakness: 85-year-old white female with an underlying past medical history of atrial fibrillation, pulmonary fibrosis, CHF, HTN, HLD and GERD presented to the ED following a controlled ground-level fall. Was ambulating from the bathroom when her "legs stopped working" which prompted her to lower herself to the ground resulting in a ground-level fall. No injury. Brought to the emergency department for further evaluation and care SUSPECT MULTIFACTORIAL: * Covid, general decline from recent hospitalization, mild uncompensated CHF with leg edema (making legs heavy and difficult to move), B12 deficiency, PAD, subclinical hypothyroidism * PT/OT recommending rehab-- pt agreeable. consulted case management, bed found at SNF w/ a COVID unit. (3) B12 deficiency: * Likely contributing to leg weakness as low level of normal (353) * Give IM cyanocobalamin x1 and oral supplementation started * Advise repeat B12 level in 3 months to trend (4) PAD (peripheral artery disease): * ABIs done given reports of bilateral leg weakness and difficulty walking * HELLEN consistent with moderate PAD in the left lower extremity (0.78) * Started aspirin 81 mg daily * Aspirin to be used cautiously as patient on concurrent Eliquis as well. She is already on PPI which will help provide GI prophylaxis * Unfortunately, Eliquis will not help with microvascular disease (5) Hypothyroid: * TSH has been elevated since 05/01 (6.9 then 5.4, currently 5.3) * At this time, she likely has subclinical hypothyroidism and this could be contributing to her symptomatology * Given her underlying history of CHF and A. fib, I do think it would be oden to initiate treatment * free T4 normal at 1.07, total t3 low level normal at 78 (reference range 76- 181), * Started on Synthroid 25 mcg daily * Will need follow-up TSH in 6 weeks (6) Hypomagnesemia: * replaced/resolved (7) (HFpEF) heart failure with preserved ejection fraction: * Patient with known CHFdiastolic * EF as of 05/01 was preserved at 55 to 60% with diastolic dysfunction * Had episode on 06/28 of feeling more short of breath which was presumed due to acute on chronic CHF exacerbation in setting of COVID-19 * Pt responded favorably to additional doses of diuretics administered * Has since been resumed on her maintenance dose Bumex as ordered. * Advised pt to f/u in HF clinic with Coby Strauss PA-C, with whom she is already established (8) Persistent atrial fibrillation: * Currently with controlled ventricular rate * Continue metoprolol and Eliquis as prior to hospitalization Case management has been following for discharge planning -- for d/c to [facility] in [place] (as they have a COVID unit and allow visitation). Updated patient's daughter on 2/21 and while she was not exactly thrilled because the location of the facility is over an hour away from where she normally lives, it is our only option at this time and since she no longer requires hospitalization, this is where she will be discharged. Family can always make arrangements to transfer the patient to a closer facility ongoing rehab is needed past her quarantine period. Unfortunately her COVID diagnosis has complicated her discharge but patient is agreeable to this plan. At this time, she is medically and hemodynamically stable for discharge to SNF to continue rehab prior to transitioning her back home. Case has been d/w Dr. Hope. Suspect she has undiagnosed sleep apnea and would advise she have a formal sleep study done as an outpatient in order to qualify her for cpap. Total Time Total Time Spent Total Time Spent (In Minutes): >30 minutes Discharge Plan Discharge Items Patient Disposition: Transfer [facility] Reason For Visit: UTI Discharge Diagnosis: Urinary tract infection, COVID-19 Activity: Resume your previous activity Non-emergency contact: Primary Care Provider Call non-emergency contact if: you have any medication questions and your symptoms worsen Follow-up/Referrals: Todd France, [Primary Care Provider] - Diet: Heart Healthy and Low Sodium (2gm) Fluids: 1800ml (7 cups) Addtl Attending Provider Instructions: You were hospitalized due to generalized weakness which was likely a combination of both urinary tract infection as well as incidental finding of testing positive for COVID-19. Fortunately, despite your Covid diagnosis, you are not r equiring oxygen more than you regularly use at home. Subsequently, you are not a candidate for medications utilized to treat Covid including steroids or antivirals. During your stay, you were given medicine to help take excess fluid off of you which is a common finding in people with COVID-19. At this time, we would recommend that you continue your Bumex that you take regularly at home. We would recommend that you follow up in the heart failure clinic with Coby Meng when you are discharged from the rehab facility to make sure that you are on the appropriate maintenance medications to manage your fluid status. In the meantime, follow a heart healthy diet, keep salt intake to a minimum, and avoid excessive intake of fluids. Keep your total fluid intake over 24 hours under 1.8L. You were treated for urinary tract infection during this hospitalization with antibiotics. No further antibiotic therapy is needed at this time. Therapy was consulted, felt that you would benefit from a stay in a fdc facility to participate in physical rehabilitation in order to make sure that you are safe to return to your home. We would advise you to follow up with your family doctor upon discharge from the fdc facility. In the interim, a healthcare provider will monitor you at the SNF during your stay. You were started on a medication for your thyroid during this hospitalization. We advise having your thyroid levels checked in about 6 weeks. This can be done by your family doctor. All medications should be taken as outlined on your discharge instructions. Pending Studies at Discharge: No Stand-Alone Forms: My [facility] Skilled Items Patient informed of condition?: Yes DNR: Yes Discharge Level of Care: Skilled Communicable Disease: No Discharge Prognosis: Stable Lines: None Urinary Catheter: No Medications and DC Order Prescriptions: New aspirin 81 mg Tablet,Delayed Release (Dr/Ec) 81 mg PO QAM Qty: 30 RF: 0 levothyroxine [Synthroid] 25 mcg Tablet 25 mcg PO DAILYBB Qty: 30 RF: 0 cyanocobalamin (vitamin B-12) 500 mcg Tablet 1,000 mcg PO QAM Qty: 60 RF: 0 Continued metoprolol succinate 50 mg tablet extended release 24 hr 50 mg PO DAILY Qty: 30 RF: 11 apixaban 5 mg tablet 5 mg PO BID Qty: 180 RF: 3 omeprazole 20 mg capsule,delayed release(DR/EC) 20 mg PO DAILY Qty: 90 RF: 3 bumetanide 1 mg tablet 1 mg PO BID Qty: 180 RF: 3 ferrous fumarate 324 mg (106 mg iron) tablet 324 mg PO 2XWK Qty: 30 RF: 0 Centrum Silver Women 8 mg iron-400 mcg-300 mcg Tablet 1 tab PO DAILY RF: 0 (DME) Oxygen Home Liters Per Minute See Rx Instructions .ROUTE .MEDSUPPLY Qty: 1 RF: 0 Changed magnesium oxide 400 mg (241.3 mg magnesium) tablet 400 mg PO BID Qty: 90 RF: 3 Discharge Orders: Discharge Order (Routine); Ordered 07/04/21 Ordered By: Rosy Scales/Other Patient Handouts: Managing Type 2 Diabetes Admission Data Admit Date/Time: 06/26/21 14:08 Attending Provider: Quang Hope Admit Provider: Lyndsay Mercedes Primary Care Provider: Todd France. Other Providers: Angel Vergara ; Fitzhugh,[facility] [place] ; Franklin Chacko at [place] ; [place],[facility] Other Interventions: Discharge Summary Assessment (RN) Last Done: 07/04/21 15:24 Supervising Physician Co-Signing Physician Notes I personally examined the patient and verified all miranda points of history and exam, discussed case, and agree with decision making with Aston Paredes PAC Feels up to going to SNF/rehab. Understands the goal to get stronger and go home. Vitals noted. Breathing unlabored. COVID/weakness/deconditioningfor rehab at SNF. Coding Level of Care Code D/C DAY MANAGEMENT >30 MINS Diagnoses COVID-19 U07.1 Bilateral leg weakness R29.898 B12 deficiency E53.8 PAD (peripheral artery disease) I73.9 Hypothyroid E03.9 Hypomagnesemia E83.42 (HFpEF) heart failure with preserved ejection fraction I50.30 Persistent atrial fibrillation I48.19
== END 2021-07-04 17:53 | DRG 689 ==
LOC: 3W 16:11 → ED 16:11 → 3W 20:04 → SUATTDRO 20:08 → 3W 06-27 22:26

== ENCOUNTER 2022-06-11 10:39 | Inpatient (IN) ==
--- NOTE | 2022-06-11 11:41 | Emergency Department Note ---
Impression & Plan CHF (congestive heart failure), Edema, Oxygen desaturation ED Provider Note NAME: NATY WORKMAN AGE: 86 SEX: F : 1935 ARRIVES VIA: Ambulance INFORMANT: Patient, Daughter ED PROVIDER(S): Quang Cohen DO CHIEF COMPLAINT: Weakness HPI: Patient is an 86-year-old female who presents to the ER for weakness. She has had a gradual deterioration over the past week. She used to be able to get up and walk and feed herself. She cannot get out of a chair today. She is hav ing increased swelling in her legs. She denies any chest pain. Admits to shortness of breath that waxes and wanes which is no significantly change from previous. She is having significantly increased swelling of the lower extremities which is typical for her. She wears oxygen intermittently. She did not take her Bumex today. PAST MEDICAL HISTORY:See Below PAST SURGICAL HISTORY:See Below FAMILY HISTORY:See Below SOCIAL HISTORY:See Below HOME MEDICATIONS:See Below ALLERGIES:See Below VITALS:See Below PHYSICAL EXAMINATION: GENERAL: Sitting up in bed, alert, well appearing, well nourished, no distress, non-toxic EYE EXAM: normal conjunctiva. OROPHARYNX: mucous membranes are moist NECK: supple, no nuchal rigidity, no adenopathy, non-tender LUNGS: Clear to auscultation. Normal chest wall mechanics HEART: no murmurs, S1 normal and S2 normal ABDOMEN: abdomen soft, non-tender, normo-active bowel sounds, no masses, no rebound or guarding. UPPER EXTREMITIES: upper extremities are grossly normal. LOWER EXTREMITIES: Pitting edema in the bilateral lower extremities NEURO EXAM: Normal sensorium, cranial nerves II-XII grossly intact, normal speech, no gross weakness of arms, no gross weakness of legs. MEDICAL DECISION MAKING: Patient is an 86-year-old female brought in by EMS. EMS sheet reviewed. Discussed with daughter at bedside. IV was established and blood work was obtained. Labs show no significant leukocytosis or anemia. BMP with a creatinine of 1.3. CO2 elevated at 39. Glucose 129. LFTs and bilirubin was fairly unremarkable. Troponin was negative. Pro-John was normal. UA was contaminated. Flu RSV and influenza was negative. Extensive pitting edema in the lower extremities. Chest x-ray with cardiomegaly. EKG was nondiagnostic. External records were reviewed. She is given IV Lasix. She is updated bedside. She is unable to ambulate and consequently was discussed with Dr. Yung Lucas for further evaluation and treatment. Triage Nursing notes reviewed. Limited review of prior medical records performed Vital Signs: reviewed and remarkable for no significant abnormalities Differential diagnosis: Differential diagnoses includes but is not limited to pneumonia, bronchitis, COPD/Asthma exacerbation, pneumothorax, pulmonary embolism, congestive heart failure, acute coronary syndrome ER treatment provided: See below Diagnostics interpreted by me include EKG and cardiac monitoring as listed below: -Cardiac Monitoring: An order was placed for continuous cardiac monitoring. The monitor shows a rate of 70 with AFIb. -ECG: A. fib rate of 62 Left axis No PVCs QTC 422 No significant from previous June 23, 2020 -Laboratory studies:Interpreted by me as stated above in MDM and shown below. Imaging studies: Xrays: As interpreted by me: Portable AP upright 1 view of the chest shows no large cardiac silhouette. No focal infiltrate. CTs show: none Consultation(s): Discussed with Dr. Yung Lucas for further evaluation and treatment. Procedures:none Critical Care: None Past Med/Surg History Medical History Acid reflux disease Edema Never a smoker No illicit drug use Surgical History History of section History of hip surgery History of hysterectomy History of total knee arthroplasty Family History Daughter Lymphoma Sister Breast cancer Brother Brain tumor Other Diabetes Family history of coronary artery disease Denies family history of Ovarian cancer Prostate cancer Myocardial infarction Colorectal cancer Social History Smoking Status: Never smoker Second Hand Exposure: No; Hx Alcohol Use: Yes Alcohol type: wine Hx Substance Use: No Preferred Language: Yi Communication Ability: Effective Hearing Ability: Normal Service Desk Technician Required: No Beliefs That Will Affect Care: None marital status: Current Living Situation: Spouse current occupational status: retired How many Children do You have: 7 Feels Safe at Home: Yes Childhood Exposure to Second-Hand Smoke: Yes caffeine: Yes Dental Care, Regularly: No Physical Activity Frequency: Does not Exercise Seatbelt Use: never Sunscreen Use: No Assistive Devices: Glasses and Walker Allergies Allergies Allergy/AdvReac Type Severity Reaction Status Date / Time Sulfa (Sulfonamide Allergy Unknown Unknown Verified 03/07/22 10:16 Antibiotics) Home Meds Home Medications Medication Instructions Recorded Confirmed multivit with 1 tab PO DAILY 04/18/21 06/11/22 igassmkb-ifna-DH-lutein 8 mg iron-400 mcg-300 mcg tablet (Centrum Silver Women) bumetanide 1 mg tablet See Rx Instructions .Route .COMPLEX 06/11/22 06/11/22 omeprazole 20 mg capsule,delayed 20 mg PO DAILY 06/11/22 06/11/22 release Previous Rx's Medication Instructions Recorded Oxygen Home #1 ea 04/27/21 aspirin 81 mg tablet,delayed 81 mg PO QAM #90 tabs 08/17/21 release cyanocobalamin (vitamin B-12) 500 1,000 mcg PO QAM #180 tabs 08/17/21 mcg tablet magnesium oxide 400 mg (241.3 mg 400 mg PO BID #90 tabs 08/17/21 magnesium) tablet apixaban 5 mg tablet 5 mg PO BID #180 tabs 08/18/21 metoprolol succinate 50 mg 50 mg PO DAILY #90 tabs 09/12/21 tablet,extended release 24 hr levothyroxine 25 mcg capsule 25 mcg PO DAILY #90 caps 03/07/22 Results & Data (ED) Vital Signs Vital Signs - 24 hr 06/11/22 10:46 06/11/22 11:55 06/11/22 11:55 Temperature 36.0 C L Temperature Source Temporal Artery Scan Pulse Rate 79 Pulse Rate [Apical] Respiratory Rate 20 Respiratory Effort / Characteristics Non-Labored Spontaneous Respiratory Depth Normal Respiratory Pattern Regular Blood Pressure 142/92 H Blood Pressure [Right Arm] Blood Pressure Mean 108 Blood Pressure Mean [Right Arm] Blood Pressure Position [Right Arm] Pulse Oximetry 93 88 L 98 Oxygen Delivery Method Room Air Room Air Nasal Cannula Oxygen Flow Rate 2 Sepsis Recent Fever Within 48 Hours No Sepsis New/Unexplained Change in Mental Status No Sepsis Action Taken by Nursing No Action Required 06/11/22 11:55 06/11/22 12:32 Temperature Temperature Source Pulse Rate Pulse Rate [Apical] 54 L 57 L Respiratory Rate 20 20 Respiratory Effort / Characteristics Respiratory Depth Respiratory Pattern Blood Pressure Blood Pressure [Right Arm] 126/83 130/80 Blood Pressure Mean Blood Pressure Mean [Right Arm] 97 96 Blood Pressure Position [Right Arm] Lying Lying Pulse Oximetry 88 L 99 Oxygen Delivery Method Room Air Nasal Cannula Oxygen Flow Rate 2 Sepsis Recent Fever Within 48 Hours Sepsis New/Unexplained Change in Mental Status Sepsis Action Taken by Nursing Laboratory Data 06/11/22 11:20 06/11/22 11:20 Lab Results 06/11/22 06/11/22 06/11/22 Range/Units 11:20 11:20 11:20 WBC 6.98 (4.8-10.8) K/ul RBC 4.39 (4.20-5.40) M/uL Hgb 13.2 (12.0-16.0) g/dl Hct 41.7 (37.0-47.0) % MCV 95.0 (80.0-100.0) fL MCH 30.1 (25.0-34.0) pg MCHC 31.7 L (32.0-36.0) g/dL RDW Std Deviation 51.4 H (36.4-46.3) fL RDW Coeff of Stephania 14.9 H (11.5-14.5) % Plt Count 138 (130-400) K/uL MPV 11.3 (9.4-12.4) fL Immature Gran % (Auto) 0.4 % Neut % (Auto) 58.0 % Lymph % (Auto) 27.4 % [place] % (Auto) 12.9 % Eos % (Auto) 0.7 % Baso % (Auto) 0.6 % Neut # (Auto) 4.05 (1.40-6.50) K/uL Lymph # (Auto) 1.91 (1.2-3.4) K/uL [place] # (Auto) 0.90 H (0.11-0.59) K/uL Eos # (Auto) 0.05 (0-0.50) K/uL Baso # (Auto) 0.04 (0-0.2) K/uL Immature Gran # (Auto) 0.03 (0.01-0.20) K/uL PT 12.4 H (9.0-12.0) Seconds INR 1.2 H (0.9-1.1) APTT 29.6 (21.0-31.0) Seconds PTT Ratio 1.1 Sodium 144 (136-145) mmol/L Potassium 4.0 (3.5-5.1) mmol/L Chloride 98 (98-107) mmol/L Carbon Dioxide 39 H (21-32) mmol/L Anion Gap 7 (3-11) BUN 31 H (6-23) mg/dl Creatinine 1.30 H (0.6-1.2) mg/dl Est Cr Clr Drug Dosing Not Reportable Est GFR ( Amer) 42.7 ml/min Est GFR (Non-Af Amer) 36.9 ml/min BUN/Creatinine Ratio 23.8 H (10-20) Glucose 129 H (70-99(Fasting)) mg/dl Calcium 9.8 (8.5-10.1) mg/dl Magnesium 2.3 (1.7-2.4) mg/dl Total Bilirubin 1.5 H (0.2-1.0) mg/dl AST 24 (13-39) U/L ALT 16 (7-52) U/L Alkaline Phosphatase 94 (34-104) U/L Troponin I High Sens 11.1 (0-14) pg/ml Total Protein 6.8 (6.0-8.3) gm/dl Albumin 3.8 (3.4-5.0) gm/dl Globulin 3.0 (2.5-4.0) gm/dl Albumin/Globulin Ratio 1.3 (0.9-2) Procalcitonin (0-0.5) ng/ml TSH (0.300-4.500) uIu/ml Free T4 (0.61-1.60) ng/dl Urine Color Urine Appearance (Clear) Urine pH (4.5-7.5) Ur Specific [place] (1.000-1.030) Urine Protein (Negative) Urine Glucose (UA) (Negative) Urine Ketones (Negative) Urine Blood (Negative) Urine Nitrite (Negative) Urine Bilirubin (Negative) Urine Urobilinogen (Negative) Ur Leukocyte Esterase (Negative) Urine WBC (Auto) (0-5) /hpf Urine RBC (Auto) (0-4) /hpf U Hyaline Cast (Auto) (0-5) /lpf U Epithel Cells (Auto) (0-5) /lpf Urine Bacteria (Auto) (Negative) SARS-CoV-2 (PCR) (Negative) Influenza Type A (PCR) (Neg) Influenza Type B (PCR) (Neg) RSV (RT-PCR) (Neg) 06/11/22 06/11/22 06/11/22 Range/Units 11:20 11:20 11:20 WBC (4.8-10.8) K/ul RBC (4.20-5.40) M/uL Hgb (12.0-16.0) g/dl Hct (37.0-47.0) % MCV (80.0-100.0) fL MCH (25.0-34.0) pg MCHC (32.0-36.0) g/dL RDW Std Deviation (36.4-46.3) fL RDW Coeff of Stephania (11.5-14.5) % Plt Count (130-400) K/uL MPV (9.4-12.4) fL Immature Gran % (Auto) % Neut % (Auto) % Lymph % (Auto) % [place] % (Auto) % Eos % (Auto) % Baso % (Auto) % Neut # (Auto) (1.40-6.50) K/uL Lymph # (Auto) (1.2-3.4) K/uL [place] # (Auto) (0.11-0.59) K/uL Eos # (Auto) (0-0.50) K/uL Baso # (Auto) (0-0.2) K/uL Immature Gran # (Auto) (0.01-0.20) K/uL PT (9.0-12.0) Seconds INR (0.9-1.1) APTT (21.0-31.0) Seconds PTT Ratio Sodium (136-145) mmol/L Potassium (3.5-5.1) mmol/L Chloride (98-107) mmol/L Carbon Dioxide (21-32) mmol/L Anion Gap (3-11) BUN (6-23) mg/dl Creatinine (0.6-1.2) mg/dl Est Cr Clr Drug Dosing Est GFR ( Amer) ml/min Est GFR (Non-Af Amer) ml/min BUN/Creatinine Ratio (10-20) Glucose (70-99(Fasting)) mg/dl Calcium (8.5-10.1) mg/dl Magnesium (1.7-2.4) mg/dl Total Bilirubin (0.2-1.0) mg/dl AST (13-39) U/L ALT (7-52) U/L Alkaline Phosphatase (34-104) U/L Troponin I High Sens (0-14) pg/ml Total Protein (6.0-8.3) gm/dl Albumin (3.4-5.0) gm/dl Globulin (2.5-4.0) gm/dl Albumin/Globulin Ratio (0.9-2) Procalcitonin < 0.05 (0-0.5) ng/ml TSH 24.005 H (0.300-4.500) uIu/ml Free T4 0.91 (0.61-1.60) ng/dl Urine Color Urine Appearance (Clear) Urine pH (4.5-7.5) Ur Specific [place] (1.000-1.030) Urine Protein (Negative) Urine Glucose (UA) (Negative) Urine Ketones (Negative) Urine Blood (Negative) Urine Nitrite (Negative) Urine Bilirubin (Negative) Urine Urobilinogen (Negative) Ur Leukocyte Esterase (Negative) Urine WBC (Auto) (0-5) /hpf Urine RBC (Auto) (0-4) /hpf U Hyaline Cast (Auto) (0-5) /lpf U Epithel Cells (Auto) (0-5) /lpf Urine Bacteria (Auto) (Negative) SARS-CoV-2 (PCR) NEGATIVE (Negative) Influenza Type A (PCR) Negative (Neg) Influenza Type B (PCR) Negative (Neg) RSV (RT-PCR) Negative (Neg) 06/11/22 Range/Units 12:31 WBC (4.8-10.8) K/ul RBC (4.20-5.40) M/uL Hgb (12.0-16.0) g/dl Hct (37.0-47.0) % MCV (80.0-100.0) fL MCH (25.0-34.0) pg MCHC (32.0-36.0) g/dL RDW Std Deviation (36.4-46.3) fL RDW Coeff of Stephania (11.5-14.5) % Plt Count (130-400) K/uL MPV (9.4-12.4) fL Immature Gran % (Auto) % Neut % (Auto) % Lymph % (Auto) % [place] % (Auto) % Eos % (Auto) % Baso % (Auto) % Neut # (Auto) (1.40-6.50) K/uL Lymph # (Auto) (1.2-3.4) K/uL [place] # (Auto) (0.11-0.59) K/uL Eos # (Auto) (0-0.50) K/uL Baso # (Auto) (0-0.2) K/uL Immature Gran # (Auto) (0.01-0.20) K/uL PT (9.0-12.0) Seconds INR (0.9-1.1) APTT (21.0-31.0) Seconds PTT Ratio Sodium (136-145) mmol/L Potassium (3.5-5.1) mmol/L Chloride (98-107) mmol/L Carbon Dioxide (21-32) mmol/L Anion Gap (3-11) BUN (6-23) mg/dl Creatinine (0.6-1.2) mg/dl Est Cr Clr Drug Dosing Est GFR ( Amer) ml/min Est GFR (Non-Af Amer) ml/min BUN/Creatinine Ratio (10-20) Glucose (70-99(Fasting)) mg/dl Calcium (8.5-10.1) mg/dl Magnesium (1.7-2.4) mg/dl Total Bilirubin (0.2-1.0) mg/dl AST (13-39) U/L ALT (7-52) U/L Alkaline Phosphatase (34-104) U/L Troponin I High Sens (0-14) pg/ml Total Protein (6.0-8.3) gm/dl Albumin (3.4-5.0) gm/dl Globulin (2.5-4.0) gm/dl Albumin/Globulin Ratio (0.9-2) Procalcitonin (0-0.5) ng/ml TSH (0.300-4.500) uIu/ml Free T4 (0.61-1.60) ng/dl Urine Color Yellow Urine Appearance Clear (Clear) Urine pH 6.5 (4.5-7.5) Ur Specific [place] 1.017 (1.000-1.030) Urine Protein Trace H (Negative) Urine Glucose (UA) Negative (Negative) Urine Ketones Negative (Negative) Urine Blood Negative (Negative) Urine Nitrite Negative (Negative) Urine Bilirubin Negative (Negative) Urine Urobilinogen Negative (Negative) Ur Leukocyte Esterase 1+ H (Negative) Urine WBC (Auto) 1-5 (0-5) /hpf Urine RBC (Auto) 0-4 (0-4) /hpf U Hyaline Cast (Auto) 1-5 (0-5) /lpf U Epithel Cells (Auto) >30 H (0-5) /lpf Urine Bacteria (Auto) Negative (Negative) SARS-CoV-2 (PCR) (Negative) Influenza Type A (PCR) (Neg) Influenza Type B (PCR) (Neg) RSV (RT-PCR) (Neg) Administered Medications Discontinued Medications Bumetanide 1 mg/ Syringe 4 mls @ 4 mls/min IV ONE ONE Stop: 06/11/22 12:12 Last Admin: 06/11/22 13:06 Dose: 4 mls/min Documented By: CHADD Bumetanide 1 mg/ Syringe 4 mls @ 4 mls/min IV ONE ONE Stop: 06/11/22 13:11 Last Admin: 06/11/22 14:17 Dose: 4 mls/min Documented By: BAM Imaging Data Radiologist's Impression: Chest X-Ray 06/11/22 10:50 XR chest 2V PA/lateral HISTORY: 86 years-old Female Sepsis acute sepsis COMPARISON: Chest radiograph 06/28/2021, chest CT 04/23/2021 TECHNIQUE: PA and lateral views of the chest FINDINGS: Cardiac mediastinal and hilar silhouettes are unchanged. Moderate sized hiatal hernia. No pneumothorax or overt pulmonary edema. Chronic interstitial coarsening. Unchanged blunting of the costophrenic angles. Degenerative changes of the shoulders and spine. Mid thoracic dextroscoliosis. IMPRESSION: 1. Cardiomegaly without acute process. 2. Chronic interstitial coarsening. 3. Hiatal hernia. ACT 112: Negative or not required by law. The above report was generated using voice recognition software. It may contain grammatical, syntax or spelling errors. Electronically signed by: Woodrow Alvarez M.D. 06/11/2022 11:49 AM Discharge Plan Visit Data Chief Complaint: Illness Stated Complaint: UNABLE TO AMBULATE, PITTING EDEMA ED Provider: Quang Cohen Discharge Problem: CHF (congestive heart failure), Edema, Oxygen desaturation Discharge Instructions Interventions: ED Discharge Assessment Last Done: 06/11/22 14:21
[2022-06-11 11:49] LABS: Basophils # (auto) 0.04 K/uL (0-0.2); Basophils % (auto) 0.6 %; Eosinophils # (auto) 0.05 K/uL (0-0.50); Eosinophils % (auto) 0.7 %; Hematocrit (blood only) 41.7 % (37.0-47.0); Hemoglobin 13.2 g/dl (12.0-16.0); Immature Granulocytes # (auto) 0.03 K/uL (0.01-0.20); Immature Granulocytes % (auto) 0.4 %; Lymphocytes # (auto) 1.91 K/uL (1.2-3.4); Lymphocytes % (auto) 27.4 %; Mean Corpuscular Hemoglobin 30.1 pg (25.0-34.0); Mean Corpuscular Hgb Conc 31.7 g/dL (32.0-36.0); Mean Platelet Volume 11.3 fL (9.4-12.4); Monocytes % (auto) 12.9 %; Neutrophils # (auto) 4.05 K/uL (1.40-6.50); Platelet Count 138 K/uL (130-400); RDW Coefficient of Variation 14.9 % (11.5-14.5); RDW Standard Deviation 51.4 fL (36.4-46.3); Red Blood Count 4.39 M/uL (4.20-5.40); White Blood Count 6.98 K/ul (4.8-10.8)
--- NOTE | 2022-06-11 11:50 | XRay Report ---
XR chest 2V PA/lateral HISTORY: 86 years-old Female Sepsis acute sepsis COMPARISON: Chest radiograph 06/28/2021, chest CT 04/23/2021 TECHNIQUE: PA and lateral views of the chest FINDINGS: Cardiac mediastinal and hilar silhouettes are unchanged. Moderate sized hiatal hernia. No pneumothora x or overt pulmonary edema. Chronic interstitial coarsening. Unchanged blunting of the costophrenic a ngles. Degenerative changes of the shoulders and spine. Mid thoracic dextroscoliosis. IMPRESSION: 1. Cardiomegaly without acute process. 2. Chronic interstitial coarsening. 3. Hiatal hernia. ACT 112: Negative or not required by law. The above report was generated using voice recognition software. It may contain grammatical, syntax o r spelling errors. Electronically signed by: Woodrow Alvarez M.D. 06/11/2022 11:49 AM
[2022-06-11 12:01] LABS: Alanine Aminotransferase 16 U/L (7-52); Albumin Globulin Ratio 1.3 (0.9-2); Albumin Level 3.8 gm/dl (3.4-5.0); Alkaline Phosphatase 94 U/L (34-104); Anion Gap 7 (3-11); Aspartate Aminotransferase 24 U/L (13-39); BUN Creatinine Ratio 23.8 (10-20); Bilirubin,Total 1.5 mg/dl (0.2-1.0); Blood Urea Nitrogen 31 mg/dl (6-23); Calcium 9.8 mg/dl (8.5-10.1); Carbon Dioxide 39 mmol/L (21-32); Chloride 98 mmol/L (98-107); Est GFR (African American) 42.7 ml/min; Est GFR (Non-African American) 36.9 ml/min; Glucose 129 mg/dl (70-99(Fasting)); Magnesium 2.3 mg/dl (1.7-2.4); Sodium 144 mmol/L (136-145); Total Protein 6.8 gm/dl (6.0-8.3)
[2022-06-11 12:09] LABS: Troponin I High Sensitivity 11.1 pg/ml (0-14)
[2022-06-11] MEDS ORDERED: BUMETANIDE 1 MG in SYRINGE 0 ML IV ONE ×2 (12:11→13:10)
[2022-06-11 12:13] LABS: INR 1.2 (0.9-1.1); Partial Thromboplastin Ratio 1.1; Partial Thromboplastin Time 29.6 Seconds (21.0-31.0); Prothrombin Time 12.4 Seconds (9.0-12.0)
[2022-06-11 12:14] LABS: Influenza A virus by PCR Negative (Neg); Influenza B virus by PCR Negative (Neg); RSV by PCR Negative (Neg); SARS CoV2 RNA(COVID-19) Ceph NEGATIVE (Negative)
[2022-06-11 12:47] LABS: Appearance Urine Clear (Clear); Bacteria Urine Automated Negative (Negative); Bilirubin Urine Negative (Negative); Blood Urine Negative (Negative); Color Urine Yellow; Epithelial Cell Urine Auto >30 /lpf (0-5); Glucose Urine UA Negative (Negative); Ketones Urine Negative (Negative); Leukocyte Esterase Urine 1+ (Negative); Nitrite Urine Negative (Negative); Protein Urine Trace (Negative); RBC Urine Automated 0-4 /hpf (0-4); Specific Gravity Urine 1.017 (1.000-1.030); Urobilinogen Urine Negative (Negative); pH Urine 6.5 (4.5-7.5)
--- NOTE | 2022-06-11 13:07 | History & Physical Report ---
Date of Service June 11, 2022 Assessment & Plan (1) (HFpEF) heart failure with preserved ejection fraction: Plan: Last TTE in 2020 therefore will repeat Continue metoprolol succinate Increase Bumex 1mg PO BID -> 2mg IV BID Strict I's and O's, daily weights Low-sodium diet, fluid restrict to 1500 mL (2) Generalized weakness: Plan: Suspect mostly due to bilateral leg pitting edema with open wounds present Wound care nurse consult (3) Permanent atrial fibrillation: Plan: Anticoagulation with apixaban 5 mg p.o. twice daily Continue rate control with metoprolol succinate 50 mg p.o. daily (4) Hypothyroid: Plan: Repeat TSH pending Continue levothyroxine 25 mcg PO daily (5) Type 2 diabetes mellitus: Plan: HbA1c 8.4 in February 2022, will repeat with a.m. labs NovoLog: --Goal BSG Range: Low 110 mg/dL, High 140 mg/dL --Correction Factor: 45 mg/dL/unit --Carbohydrate ratio = 15 g/unit --BSGs ACHS if eating, q6h if npo (6) PAD (peripheral artery disease): Plan: Continue aspirin Consider arterial US once wounds improved (7) B12 deficiency: Plan: Given generalized weakness will repeat level Continue B12 supplementation Plan VTE prophylaxis - Eliquis Diet - heart healthy, low-sodium, type 2 diabetes, fluid restrict as above Disposition - admit to [facility] telemetry Admission and Anticipated Discharge Date Admission Date: June 11, 2022 History of Present Illness Chief Complaint: Bilateral leg weakness Primary Care Provider: Todd France DO Nunu Tipton is an 86-year-old female who presents to the ER by EMS due to ambulatory dysfunction, bilateral lower extremity swelling and generalized fatigue. She reports progressive worsening of her leg edema over the last 5 days but much worse the last 2 days. Now unable to get out of her wheelchair. Wounds now seeping with yellow crusting. No fevers or chills. Mild shortness of breath. No chest pain. Using her oxygen more in the last 4 to 5 days. Previously on room air during the daytime but uses nocturnal oxygen. Allergies Allergy/AdvReac Type Severity Reaction Status Date / Time Sulfa (Sulfonamide Allergy Unknown Unknown Verified 03/07/22 10:16 Antibiotics) Home Medications Medication Instructions Recorded Confirmed Type multivit with 1 tab PO DAILY 04/18/21 06/11/22 History xlkzvcsu-zuoh-LN-lutein 8 mg iron-400 mcg-300 mcg tablet (Centrum Silver Women) Oxygen Home #1 ea 04/27/21 03/07/22 Rx aspirin 81 mg tablet,delayed 81 mg PO QAM #90 tabs 08/17/21 06/11/22 Rx release cyanocobalamin (vitamin B-12) 500 1,000 mcg PO QAM #180 tabs 08/17/21 06/11/22 Rx mcg tablet magnesium oxide 400 mg (241.3 mg 400 mg PO BID #90 tabs 08/17/21 06/11/22 Rx magnesium) tablet apixaban 5 mg tablet 5 mg PO BID #180 tabs 08/18/21 06/11/22 Rx metoprolol succinate 50 mg 50 mg PO DAILY #90 tabs 09/12/21 06/11/22 Rx tablet,extended release 24 hr levothyroxine 25 mcg capsule 25 mcg PO DAILY #90 caps 03/07/22 06/11/22 Rx bumetanide 1 mg tablet See Rx Instructions .Route .COMPLEX 06/11/22 06/11/22 History omeprazole 20 mg capsule,delayed 20 mg PO DAILY 06/11/22 06/11/22 History release Past Med/Surg History Medical History (HFpEF) heart failure with preserved ejection fraction Acid reflux disease B12 deficiency COVID-19 Edema Hypothyroid Never a smoker No illicit drug use PAD (peripheral artery disease) Persistent atrial fibrillation Pulmonary fibrosis Surgical History History of section History of hip surgery Left History of hysterectomy History of total knee arthroplasty Family History Daughter Lymphoma Sister Breast cancer Brother Brain tumor Other Diabetes Family history of coronary artery disease Denies family history of Ovarian cancer Prostate cancer Myocardial infarction Colorectal cancer Social History Smoking Status: Never smoker Second Hand Exposure: No; Hx Alcohol Use: Yes Alcohol type: wine Hx Substance Use: No Preferred Language: Kittitian Communication Ability: Effective Hearing Ability: Normal Color Checker Roving Or Yarn Required: No Beliefs That Will Affect Care: None marital status: Current Living Situation: Spouse current occupational status: retired How many Children do You have: 7 Feels Safe at Home: Yes Childhood Exposure to Second-Hand Smoke: Yes caffeine: Yes Dental Care, Regularly: No Physical Activity Frequency: Does not Exercise Seatbelt Use: never Sunscreen Use: No Assistive Devices: Glasses and Walker Review of Systems Review of Systems: All systems reviewed & are unremarkable except as noted in HPI & below Physical Exam Constitutional: WD/WN, vitals as above Respiratory: normal respiratory effort; no respiratory distress Auscultation: + crackles (Bibasal); breath sounds present, no diminished lung sounds, no rales, no rhonchi and no wheezes Cardiovascular: Rate/Rhythm: regular rate and + irregularly irregular Heart Sounds: no murmur Vessels: + JVD Extremities: normal capillary refill and + pedal edema (3+ b/l pitting edema); no calf tenderness Gastrointestinal (Abdomen): normal bowel sounds, soft, nontender, no hepatosplenomegaly Musculoskeletal: no cyanosis or clubbing, extremities motor strength 5/5 Skin: + ulcer (Venous ulcers on bilateral lower extremities) and + erythema (From ankle to mid thigh not involving feet without warmth) Neurologic: moves all extremities (difficult to move her legs) and awake; no focal motor deficits and not confused Psychiatric: A+Ox3, euthymic affect Results & Data Results & Data ([facility]) Vital Signs (Past 12 Hours) Vital Signs Temp Pulse Pulse Resp BP BP Pulse Ox 06/11/22 11:55 54 L 20 126/83 88 L 06/11/22 11:55 98 06/11/22 11:55 88 L 06/11/22 10:46 36.0 C L 79 20 142/92 H 93 O2 Del Method O2 Flow Rate 06/11/22 11:55 Room Air 06/11/22 11:55 Nasal Cannula 2 06/11/22 11:55 Room Air 06/11/22 10:46 Room Air Laboratory Results Abnormal lab results 06/11/22 06/11/22 06/11/22 Range/Units 11:20 11:20 11:20 MCHC 31.7 L (32.0-36.0) g/dL RDW Std Deviation 51.4 H (36.4-46.3) fL RDW Coeff of Stephania 14.9 H (11.5-14.5) % [place] # (Auto) 0.90 H (0.11-0.59) K/uL PT 12.4 H (9.0-12.0) Seconds INR 1.2 H (0.9-1.1) Carbon Dioxide 39 H (21-32) mmol/L BUN 31 H (6-23) mg/dl Creatinine 1.30 H (0.6-1.2) mg/dl BUN/Creatinine Ratio 23.8 H (10-20) Glucose 129 H (70-99(Fasting)) mg/dl Total Bilirubin 1.5 H (0.2-1.0) mg/dl Urine Protein (Negative) Ur Leukocyte Esterase (Negative) U Epithel Cells (Auto) (0-5) /lpf 06/11/22 Range/Units 12:31 MCHC (32.0-36.0) g/dL RDW Std Deviation (36.4-46.3) fL RDW Coeff of Stephania (11.5-14.5) % [place] # (Auto) (0.11-0.59) K/uL PT (9.0-12.0) Seconds INR (0.9-1.1) Carbon Dioxide (21-32) mmol/L BUN (6-23) mg/dl Creatinine (0.6-1.2) mg/dl BUN/Creatinine Ratio (10-20) Glucose (70-99(Fasting)) mg/dl Total Bilirubin (0.2-1.0) mg/dl Urine Protein Trace H (Negative) Ur Leukocyte Esterase 1+ H (Negative) U Epithel Cells (Auto) >30 H (0-5) /lpf Diagnostic Findings XR chest 2V PA/lateral HISTORY: 86 years-old Female Sepsis acute sepsis COMPARISON: Chest radiograph 06/28/2021, chest CT 04/23/2021 TECHNIQUE: PA and lateral views of the chest FINDINGS: Cardiac mediastinal and hilar silhouettes are unchanged. Moderate sized hiatal hernia. No pneumothorax or overt pulmonary edema. Chronic interstitial coarsening. Unchanged blunting of the costophrenic angles. Degenerative changes of the shoulders and spine. Mid thoracic dextroscoliosis. IMPRESSION: 1. Cardiomegaly without acute process. 2. Chronic interstitial coarsening. 3. Hiatal hernia. Medications Administered ER medications given: Bumex 1 mg IV ECG Indication: abdominal pain Rate (beats per minute): 62 Rhythm: atrial fibrillation Findings: + left axis deviation; no acute ischemic change Comparison ECG Date: from (June 24, 2021) Change: the following changes noted (T wave inversion no longer evident in inferior leads) Code Status & VTE Plan Code Status DNR/DNI VTE Prophylaxis Plan VTE Prophylaxis will be ordered: Yes PG Care Time/CCT Total # of Minutes Spent Total Time Spent with Patient: Total time spent is greater than 50% in coordination of care (as documented) at patient's floor/unit and/or counseling patient: Coding Level of Care Code 36847 INT INP/OBS CARE 3/75MIN Diagnoses (HFpEF) heart failure with preserved ejection fraction I50.30 Generalized weakness R53.1 Permanent atrial fibrillation I48.21 Hypothyroid E03.9 Type 2 diabetes mellitus E11.9 PAD (peripheral artery disease) I73.9 B12 deficiency E53.8
[2022-06-11 13:59] LABS: Thyroid Stimulating Hormone 24.005 uIu/ml (0.300-4.500)
[2022-06-11] MEDS ORDERED: ACETAMINOPHEN 325 MG TAB PO PRN (14:37)
[2022-06-11 14:47] LABS: T4 Free Thyroxine 0.91 ng/dl (0.61-1.60)
--- NOTE | 2022-06-11 16:07 | Electrocardiogram Report ---
Test Reason : Blood Pressure : / mmHG Vent. Rate : 062 BPM Atrial Rate : 068 BPM P-R Int : 000 ms QRS Dur : 102 ms QT Int : 416 ms P-R-T Axes : 000 -38 133 degrees QTc Int : 422 ms Poor data quality, interpretation may be adversely affected Atrial fibrillation Left axis deviation Anterolateral infarct (cited on or before 18-APR-2021) Abnormal ECG When compared with ECG of 24-JUN-2021 17:17, Questionable change in initial forces of Anterolateral leads T wave inversion no longer evident in Inferior leads Confirmed by Hector Damon ([id number]) on 06/11/2022 4:06:25 PM Referred By: REFERRED SELF Confirmed By:Hector Damon
[2022-06-11] MEDS ORDERED: APIXABAN 5 MG TABLET PO STA (17:38)
[2022-06-11] MEDS ORDERED: METOPROLOL SUCC 50MG EXT REL TAB PO STA (17:40)
[2022-06-11] MEDS: BUMETANIDE 2 MG in SYRINGE 0 ML IV SCH (21:11)
[2022-06-11] MEDS ORDERED: DEXTROSE 50% 50 ML SYRINGE IV PRN (22:58)
[2022-06-11] MEDS ORDERED: GLUCAGON FOR INJ 1 MG VIAL SQ PRN (22:58)
[2022-06-11] MEDS ORDERED: GLUCOSE 40% GEL 15 GM TUBE PO PRN (22:58)
[2022-06-11] MEDS ORDERED: CARBOHYDRATES FOR HYPOGLYCEMIA PO PRN (22:58)
[2022-06-11] MEDS ORDERED: GLUCOSE 10 TAB/TUBE PO PRN (22:58)
[2022-06-12 04:52] LABS: BUN Creatinine Ratio 22.1 (10-20); Calcium 8.8 mg/dl (8.5-10.1); Creatinine Clr Calc Pharmacy 37.7 ml/min; Est GFR (African American) 42.3 ml/min; Est GFR (Non-African American) 36.5 ml/min; Potassium 3.6 mmol/L (3.5-5.1)
[2022-06-12 05:38] LABS: Basophils # (auto) 0.02 K/uL (0-0.2); Basophils % (auto) 0.3 %; Eosinophils # (auto) 0.11 K/uL (0-0.50); Eosinophils % (auto) 1.7 %; Hematocrit (blood only) 38.8 % (37.0-47.0); Hemoglobin 12.4 g/dl (12.0-16.0); Immature Granulocytes # (auto) 0.01 K/uL (0.01-0.20); Immature Granulocytes % (auto) 0.2 %; Lymphocytes # (auto) 1.39 K/uL (1.2-3.4); Lymphocytes % (auto) 20.9 %; Mean Corpuscular Hemoglobin 30.2 pg (25.0-34.0); Mean Corpuscular Volume 94.6 fL (80.0-100.0); Mean Platelet Volume 11.4 fL (9.4-12.4); Monocytes # (auto) 1.04 K/uL (0.11-0.59); Monocytes % (auto) 15.6 %; Neutrophils # (auto) 4.08 K/uL (1.40-6.50); Neutrophils % (auto) 61.3 %; Platelet Count 129 K/uL (130-400); RBC Morphology Unremarkable; White Blood Count 6.65 K/ul (4.8-10.8)
[2022-06-12 06:25] LABS: Estimated Average Glucose 200 mg/dl; Hemoglobin A1C 8.6 % (4.5-5.6)
[2022-06-12] MEDS: LEVOTHYROXINE SODIUM 25 MCG TABLET PO SCH (06:47)
[2022-06-12] MEDS: BUMETANIDE 2 MG in SYRINGE 0 ML IV SCH ×2 (08:31→20:55)
[2022-06-12] MEDS: ASPIRIN 81 MG ECTAB PO SCH (08:31)
[2022-06-12] MEDS: APIXABAN 5 MG TABLET PO SCH ×2 (08:31→22:36)
[2022-06-12] MEDS: PANTOprazole 40 MG TAB PO SCH (08:32)
[2022-06-12] MEDS: CYANOCOBALAMIN (B-12) 500 MCG TABLET PO SCH (08:32)
[2022-06-12] MEDS: MAGNESIUM OXIDE 400 MG TAB PO SCH ×2 (08:32→22:36)
[2022-06-12] MEDS: METOPROLOL SUCC 50MG EXT REL TAB PO SCH (08:32)
[2022-06-12] MEDS: INSULIN ASPART PER UNIT SC SCH ×4 (09:28→20:29)
--- NOTE | 2022-06-12 10:48 | XCELERA ---
[id number]
[2022-06-12 11:12] LABS: Albumin Level 3.3 gm/dl (3.4-5.0); Bilirubin Direct 0.3 mg/dl (0-0.2); Bilirubin,Total 1.4 mg/dl (0.2-1.0)
--- NOTE | 2022-06-12 21:07 | Hospitalist Progress Note ---
Date of Service June 12, 2022 Assessment & Plan (1) (HFpEF) heart failure with preserved ejection fraction: Plan: Last TTE in 2020 therefore will repeat Continue metoprolol succinate Increase Bumex 1mg PO BID -> 2mg IV BID Strict I's and O's, daily weights Low-sodium diet, fluid restrict to 1500 mL continue current diuretic management. (2) Generalized weakness: Plan: Suspect mostly due to bilateral leg pitting edema with open wounds present Wound care nurse consult (3) Permanent atrial fibrillation: Plan: Anticoagulation with apixaban 5 mg p.o. twice daily Continue rate control with metoprolol succinate 50 mg p.o. daily (4) Hypothyroid: Plan: Repeat TSH pending Continue levothyroxine 25 mcg PO daily (5) Type 2 diabetes mellitus: Plan: HbA1c 8.4 in February 2022, will repeat with a.m. labs NovoLog: --Goal BSG Range: Low 110 mg/dL, High 140 mg/dL --Correction Factor: 45 mg/dL/unit --Carbohydrate ratio = 15 g/unit --BSGs ACHS if eating, q6h if npo (6) PAD (peripheral artery disease): Plan: Continue aspirin Consider arterial US once wounds improved (7) B12 deficiency: Plan: Given generalized weakness will repeat level Continue B12 supplementation Plan VTE prophylaxis - Eliquis Diet - heart healthy, low-sodium, type 2 diabetes, fluid restrict as above Disposition - admit to [facility] telemetry Admission and Anticipated Discharge Date Admission Date: June 11, 2022 Subjective Patient reports she is breathing better today. Patient still feels fatigued. Review of Systems Review of Systems: All systems reviewed & are unremarkable except as noted in HPI & below Physical Exam Physical Exam: Constitutional: WD/WN, vitals as above Respiratory: normal respiratory effort; no respiratory distress Auscultation: + crackles (Bibasal); breath sounds present, no diminished lung sounds, no rales, no rhonchi and no wheezes Cardiovascular: Rate/Rhythm: regular rate and + irregularly irregular Heart Sounds: no murmur Vessels: + JVD Extremities: normal capillary refill and + pedal edema (3+ b/l pitting edema); no calf tenderness Gastrointestinal (Abdomen): normal bowel sounds, soft, nontender, no hepatosplenomegaly Musculoskeletal: no cyanosis or clubbing, extremities motor strength 5/5 Skin: + ulcer (Venous ulcers on bilateral lower extremities) and + erythema (From ankle to mid thigh not involving feet without warmth) Neurologic: moves all extremities (difficult to move her legs) and awake; no focal motor deficits and not confused Psychiatric: A+Ox3, euthymic affect Results & Data Results & Data ([facility]) Vital Signs (Past 12 Hours) Vital Signs Temp Pulse Pulse Resp BP Pulse Ox Pulse Ox 06/12/22 16:19 57 L 06/12/22 14:37 96 06/12/22 14:36 06/12/22 14:30 36.7 C 69 18 104/58 L 96 06/12/22 11:39 36.6 C 63 18 104/74 99 06/12/22 10:52 O2 Del Method O2 Del Method O2 Flow Rate O2 Flow Rate 06/12/22 16:19 06/12/22 14:37 Nasal Cannula 2 06/12/22 14:36 Nasal Cannula 2 06/12/22 14:30 Nasal Cannula 2 06/12/22 11:39 Nasal Cannula 2 06/12/22 10:52 Nasal Cannula 2 PG Care Time/CCT Total # of Minutes Spent Total Time Spent with Patient: Total time spent is greater than 50% in coordination of care (as documented) at patient's floor/unit and/or counseling patient: Coding Level of Care Code 75611 SUB INP/OBS CARE 2MIN Diagnoses (HFpEF) heart failure with preserved ejection fraction I50.30 Generalized weakness R53.1 Permanent atrial fibrillation I48.21 Hypothyroid E03.9 Type 2 diabetes mellitus E11.9 PAD (peripheral artery disease) I73.9 B12 deficiency E53.8
[2022-06-12] MEDS ORDERED: MICONAZOLE NITRATE POWDER 43 GM EXT PRN (21:22)
[2022-06-13 08:12] LABS: Hematocrit (blood only) 37.2 % (37.0-47.0); Hemoglobin 12.2 g/dl (12.0-16.0); Mean Corpuscular Hemoglobin 30.7 pg (25.0-34.0); Mean Corpuscular Hgb Conc 32.8 g/dL (32.0-36.0); Mean Corpuscular Volume 93.5 fL (80.0-100.0); Mean Platelet Volume 10.8 fL (9.4-12.4); Platelet Count 132 K/uL (130-400); RDW Coefficient of Variation 14.8 % (11.5-14.5); RDW Standard Deviation 49.6 fL (36.4-46.3); Red Blood Count 3.98 M/uL (4.20-5.40); White Blood Count 9.51 K/ul (4.8-10.8)
[2022-06-13] MEDS: MAGNESIUM OXIDE 400 MG TAB PO SCH ×2 (08:43→20:35)
[2022-06-13] MEDS: APIXABAN 5 MG TABLET PO SCH ×2 (08:43→10:31)
[2022-06-13] MEDS: BUMETANIDE 2 MG in SYRINGE 0 ML IV SCH ×2 (08:44→20:42)
[2022-06-13] MEDS: INSULIN ASPART PER UNIT SC SCH ×4 (08:50→20:11)
[2022-06-13] MEDS: LEVOTHYROXINE SODIUM 25 MCG TABLET PO SCH (10:30)
[2022-06-13] MEDS: PANTOprazole 40 MG TAB PO SCH (10:30)
[2022-06-13] MEDS: ASPIRIN 81 MG ECTAB PO SCH (10:30)
[2022-06-13 11:57] LABS: BUN Creatinine Ratio 21.5 (10-20); Calcium 8.6 mg/dl (8.5-10.1); Creatinine Clr Calc Pharmacy 37.3 ml/min; Est GFR (African American) 42.7 ml/min; Est GFR (Non-African American) 36.9 ml/min; Potassium 3.5 mmol/L (3.5-5.1)
[2022-06-13] MEDS: METOPROLOL SUCC 50MG EXT REL TAB PO SCH (12:33)
[2022-06-13] MEDS: CYANOCOBALAMIN (B-12) 500 MCG TABLET PO SCH (12:33)
--- NOTE | 2022-06-13 23:56 | Hospitalist Progress Note ---
Date of Service June 13, 2022 Assessment & Plan (1) (HFpEF) heart failure with preserved ejection fraction: Plan: Last TTE in 2020 therefore will repeat Continue metoprolol succinate Increase Bumex 1mg PO BID -> 2mg IV BID Strict I's and O's, daily weights Low-sodium diet, fluid restrict to 1500 mL continue current diuretic management. (2) Generalized weakness: Plan: Suspect mostly due to bilateral leg pitting edema with open wounds present Wound care nurse consult (3) Permanent atrial fibrillation: Plan: Anticoagulation with apixaban 5 mg p.o. twice daily Continue rate control with metoprolol succinate 50 mg p.o. daily (4) Hypothyroid: Plan: Repeat TSH pending Continue levothyroxine 25 mcg PO daily (5) Type 2 diabetes mellitus: Plan: HbA1c 8.4 in February 2022, will repeat with a.m. labs NovoLog: --Goal BSG Range: Low 110 mg/dL, High 140 mg/dL --Correction Factor: 45 mg/dL/unit --Carbohydrate ratio = 15 g/unit --BSGs ACHS if eating, q6h if npo (6) PAD (peripheral artery disease): Plan: Continue aspirin Consider arterial US once wounds improved (7) B12 deficiency: Plan: Given generalized weakness will repeat level Continue B12 supplementation Plan VTE prophylaxis - Eliquis Diet - heart healthy, low-sodium, type 2 diabetes, fluid restrict as above Disposition - admit to [facility] telemetry Admission and Anticipated Discharge Date Admission Date: June 11, 2022 Subjective Patient denies any acute complaints Still reports some fatigue symptoms . Physical Exam Physical Exam: Head and ENT no thyroid enlargement trachea midline Cardiovascular S1-S2 are normal no S3 Lungs bilateral air entry fair no wheezing Abdomen soft nondistended positive bowel sounds no rebound tenderness Extremity shows trace edema Neurologically no focal deficits Skin shows no rash no cyanosis Results & Data Results & Data ([facility]) Vital Signs (Past 12 Hours) Vital Signs Temp Pulse Pulse Resp BP BP Pulse Ox 06/13/22 23:00 37.3 C 72 18 114/75 94 06/13/22 20:00 06/13/22 22:00 36.4 C L 71 18 116/67 93 06/13/22 17:58 06/13/22 14:26 37.1 C 84 18 124/77 95 06/13/22 12:00 37 C 87 18 100/65 93 O2 Del Method O2 Flow Rate 06/13/22 23:00 Nasal Cannula 2 06/13/22 20:00 Nasal Cannula 2 06/13/22 22:00 Room Air 06/13/22 17:58 Nasal Cannula 2 06/13/22 14:26 Nasal Cannula 2 06/13/22 12:00 Nasal Cannula 2 Laboratory Results Short CBC 06/13/22 Range/Units 07:37 WBC 9.51 (4.8-10.8) K/ul Hgb 12.2 (12.0-16.0) g/dl Hct 37.2 (37.0-47.0) % Plt Count 132 (130-400) K/uL BMP 06/13/22 07:37 Sodium 141 Potassium 3.5 Chloride 98 Carbon Dioxide 38 H BUN 28 H Creatinine 1.30 H Glucose 121 H Calcium 8.6 PG Care Time/CCT Total # of Minutes Spent Total Time Spent with Patient: Total time spent is greater than 50% in coordination of care (as documented) at patient's floor/unit and/or counseling patient: Coding Level of Care Code 52455 SUB INP/OBS CARE 1/25MIN Diagnoses (HFpEF) heart failure with preserved ejection fraction I50.30 Generalized weakness R53.1 Permanent atrial fibrillation I48.21 Hypothyroid E03.9 Type 2 diabetes mellitus E11.9 PAD (peripheral artery disease) I73.9 B12 deficiency E53.8
[2022-06-14] MEDS: LEVOTHYROXINE SODIUM 25 MCG TABLET PO SCH (05:39)
[2022-06-14] MEDS: METOPROLOL SUCC 50MG EXT REL TAB PO SCH (08:28)
[2022-06-14] MEDS: APIXABAN 5 MG TABLET PO SCH ×2 (08:29→20:47)
[2022-06-14] MEDS: MAGNESIUM OXIDE 400 MG TAB PO SCH ×2 (08:29→20:47)
[2022-06-14] MEDS: CYANOCOBALAMIN (B-12) 500 MCG TABLET PO SCH (08:30)
[2022-06-14] MEDS: PANTOprazole 40 MG TAB PO SCH (08:30)
[2022-06-14] MEDS: ASPIRIN 81 MG ECTAB PO SCH (08:30)
[2022-06-14] MEDS: BUMETANIDE 2 MG in SYRINGE 0 ML IV SCH ×2 (08:31→20:48)
[2022-06-14] MEDS: INSULIN ASPART PER UNIT SC SCH ×4 (08:34→20:46)
[2022-06-14 08:58] LABS: Hematocrit (blood only) 40.7 % (37.0-47.0); Hemoglobin 13.2 g/dl (12.0-16.0); Mean Corpuscular Hemoglobin 29.9 pg (25.0-34.0); Mean Corpuscular Hgb Conc 32.4 g/dL (32.0-36.0); Mean Corpuscular Volume 92.1 fL (80.0-100.0); Mean Platelet Volume 11.2 fL (9.4-12.4); Platelet Count 132 K/uL (130-400); RDW Coefficient of Variation 15.1 % (11.5-14.5); RDW Standard Deviation 50.1 fL (36.4-46.3); Red Blood Count 4.42 M/uL (4.20-5.40); White Blood Count 9.97 K/ul (4.8-10.8)
[2022-06-14 09:24] LABS: BUN Creatinine Ratio 24.3 (10-20); Creatinine Clr Calc Pharmacy 35.4 ml/min; Est GFR (African American) 40.5 ml/min; Est GFR (Non-African American) 34.9 ml/min; Potassium 3.5 mmol/L (3.5-5.1)
[2022-06-14 12:18] LABS: Calcium 8.9 mg/dl (8.5-10.1)
--- NOTE | 2022-06-14 23:57 | Hospitalist Progress Note ---
Date of Service June 14, 2022 Assessment & Plan (1) (HFpEF) heart failure with preserved ejection fraction: Plan: Last TTE in 2020 therefore will repeat Continue metoprolol succinate Increase Bumex 1mg PO BID -> 2mg IV BID Strict I's and O's, daily weights Low-sodium diet, fluid restrict to 1500 mL continue current diuretic management. 2/3-continue with close monitoring of input output Patient needs dose of Bumex increased to facilitate diuresis Discussed with patient's daughter about need to have PT OT eval completed Patient may need placement temporarily in a snf or rehab facility Pending case management evaluation (2) Generalized weakness: Plan: Suspect mostly due to bilateral leg pitting edema with open wounds present Wound care nurse consult (3) Permanent atrial fibrillation: Plan: Anticoagulation with apixaban 5 mg p.o. twice daily Continue rate control with metoprolol succinate 50 mg p.o. daily (4) Hypothyroid: Plan: Repeat TSH pending Continue levothyroxine 25 mcg PO daily (5) Type 2 diabetes mellitus: Plan: HbA1c 8.4 in February 2022, will repeat with a.m. labs NovoLog: --Goal BSG Range: Low 110 mg/dL, High 140 mg/dL --Correction Factor: 45 mg/dL/unit --Carbohydrate ratio = 15 g/unit --BSGs ACHS if eating, q6h if npo (6) PAD (peripheral artery disease): Plan: Continue aspirin Consider arterial US once wounds improved (7) B12 deficiency: Plan: Given generalized weakness will repeat level Continue B12 supplementation Plan VTE prophylaxis - Eliquis Diet - heart healthy, low-sodium, type 2 diabetes, fluid restrict as above Disposition - admit to [facility] telemetry Admission and Anticipated Discharge Date Admission Date: June 11, 2022 Subjective Patient denies any acute complaints Still reports some fatigue symptoms . Physical Exam Physical Exam: Head and ENT no thyroid enlargement trachea midline Cardiovascular S1-S2 are normal no S3 Lungs bilateral air entry fair no wheezing Abdomen soft nondistended positive bowel sounds no rebound tenderness Extremity shows trace edema Neurologically no focal deficits Skin shows no rash no cyanosis Results & Data Results & Data ([facility]) Vital Signs (Past 12 Hours) Vital Signs Temp Pulse Pulse Resp BP BP Pulse Ox 06/14/22 19:00 37.0 C 88 22 118/69 95 06/14/22 15:44 64 06/14/22 15:41 37.5 C 75 20 120/70 94 O2 Del Method O2 Flow Rate 06/14/22 19:00 Nasal Cannula 2 06/14/22 15:44 06/14/22 15:41 Nasal Cannula 3 PG Care Time/CCT Total # of Minutes Spent Total Time Spent with Patient: Total time spent is greater than 50% in coordination of care (as documented) at patient's floor/unit and/or counseling patient: Coding Level of Care Code 89134 SUB INP/OBS CARE 2/35MIN Diagnoses (HFpEF) heart failure with preserved ejection fraction I50.30 Generalized weakness R53.1 Permanent atrial fibrillation I48.21 Hypothyroid E03.9 Type 2 diabetes mellitus E11.9 PAD (peripheral artery disease) I73.9 B12 deficiency E53.8
[2022-06-15] MEDS: LEVOTHYROXINE SODIUM 25 MCG TABLET PO SCH (06:01)
[2022-06-15 06:50] LABS: BUN Creatinine Ratio 23.9 (10-20); Calcium 9.2 mg/dl (8.5-10.1); Est GFR (African American) 41.2 ml/min; Est GFR (Non-African American) 35.5 ml/min; Potassium 3.4 mmol/L (3.5-5.1)
[2022-06-15 06:56] LABS: Hematocrit (blood only) 38.6 % (37.0-47.0); Hemoglobin 12.7 g/dl (12.0-16.0); Mean Corpuscular Hemoglobin 30.2 pg (25.0-34.0); Mean Corpuscular Hgb Conc 32.9 g/dL (32.0-36.0); Mean Corpuscular Volume 91.9 fL (80.0-100.0); Mean Platelet Volume 10.7 fL (9.4-12.4); Platelet Count 135 K/uL (130-400); RDW Standard Deviation 49.3 fL (36.4-46.3); White Blood Count 9.57 K/ul (4.8-10.8)
[2022-06-15] MEDS: INSULIN ASPART PER UNIT SC SCH ×4 (08:38→20:50)
[2022-06-15] MEDS: MAGNESIUM OXIDE 400 MG TAB PO SCH ×2 (08:51→20:37)
[2022-06-15] MEDS: CYANOCOBALAMIN (B-12) 500 MCG TABLET PO SCH (08:51)
[2022-06-15] MEDS: ASPIRIN 81 MG ECTAB PO SCH (08:51)
[2022-06-15] MEDS: PANTOprazole 40 MG TAB PO SCH (08:51)
[2022-06-15] MEDS: APIXABAN 5 MG TABLET PO SCH ×2 (08:51→20:38)
[2022-06-15] MEDS: METOPROLOL SUCC 50MG EXT REL TAB PO SCH (08:52)
[2022-06-15] MEDS: BUMETANIDE 2 MG in SYRINGE 0 ML IV SCH ×2 (08:52→20:38)
[2022-06-15] MEDS: POLYETHYLENE (MIRALAX) 17 GM PACK PO PRN (10:34)
--- NOTE | 2022-06-15 22:59 | Hospitalist Progress Note ---
Date of Service June 15, 2022 Assessment & Plan (1) (HFpEF) heart failure with preserved ejection fraction: Plan: Last TTE in 2020 therefore will repeat Continue metoprolol succinate Increase Bumex 1mg PO BID -> 2mg IV BID Strict I's and O's, daily weights Low-sodium diet, fluid restrict to 1500 mL continue current diuretic management. 2/3-continue with close monitoring of input output Patient needs dose of Bumex increased to facilitate diuresis Discussed with patient's daughter about need to have PT OT eval completed Patient may need placement temporarily in a retirement or rehab facility Pending case management evaluation 2/-continue diuretic effort with Bumex Monitor I's and O's closely Needs temporary placement Case management to assist with retirement facility placement (2) Generalized weakness: Plan: Suspect mostly due to bilateral leg pitting edema with open wounds present Wound care nurse consult (3) Permanent atrial fibrillation: Plan: Anticoagulation with apixaban 5 mg p.o. twice daily Continue rate control with metoprolol succinate 50 mg p.o. daily (4) Hypothyroid: Plan: Repeat TSH pending Continue levothyroxine 25 mcg PO daily (5) Type 2 diabetes mellitus: Plan: HbA1c 8.4 in February 2022, will repeat with a.m. labs NovoLog: --Goal BSG Range: Low 110 mg/dL, High 140 mg/dL --Correction Factor: 45 mg/dL/unit --Carbohydrate ratio = 15 g/unit --BSGs ACHS if eating, q6h if npo (6) PAD (peripheral artery disease): Plan: Continue aspirin Consider arterial US once wounds improved (7) B12 deficiency: Plan: Given generalized weakness will repeat level Continue B12 supplementation Plan VTE prophylaxis - Eliquis Diet - heart healthy, low-sodium, type 2 diabetes, fluid restrict as above Disposition - admit to [facility] telemetry Admission and Anticipated Discharge Date Admission Date: June 11, 2022 Subjective Patient denies any acute complaints Still reports some fatigue symptoms No chest pain or shortness of breath reported . Physical Exam Physical Exam: Head and ENT no thyroid enlargement trachea midline Cardiovascular S1-S2 are normal no S3 Lungs bilateral air entry fair no wheezing Abdomen soft nondistended positive bowel sounds no rebound tenderness Extremity shows 1+ edema with skin excoriations Neurologically no focal deficits Skin shows no rash no cyanosis Results & Data Results & Data ([facility]) Vital Signs (Past 12 Hours) Vital Signs Temp Pulse Pulse Resp BP Pulse Ox O2 Del Method 06/15/22 19:18 37.1 C 86 18 125/76 93 Nasal Cannula 06/15/22 14:09 82 06/15/22 16:00 37.8 C H 76 18 114/75 93 Room Air 06/15/22 14:41 Room Air 06/15/22 11:27 37.1 C 70 18 128/88 98 Nasal Cannula O2 Flow Rate 06/15/22 19:18 2 06/15/22 14:09 06/15/22 16:00 06/15/22 14:41 06/15/22 11:27 2 PG Care Time/CCT Total # of Minutes Spent Total Time Spent with Patient: Total time spent is greater than 50% in coordination of care (as documented) at patient's floor/unit and/or counseling patient: Coding Level of Care Code 25614 SUB INP/OBS CARE 2/35MIN Diagnoses (HFpEF) heart failure with preserved ejection fraction I50.30 Generalized weakness R53.1 Permanent atrial fibrillation I48.21 Hypothyroid E03.9 Type 2 diabetes mellitus E11.9 PAD (peripheral artery disease) I73.9 B12 deficiency E53.8
[2022-06-16] MEDS: LEVOTHYROXINE SODIUM 25 MCG TABLET PO SCH (05:49)
[2022-06-16 06:45] LABS: Hematocrit (blood only) 37.9 % (37.0-47.0); Hemoglobin 12.6 g/dl (12.0-16.0); Mean Corpuscular Hemoglobin 30.3 pg (25.0-34.0); Mean Corpuscular Hgb Conc 33.2 g/dL (32.0-36.0); Mean Corpuscular Volume 91.1 fL (80.0-100.0); Mean Platelet Volume 10.9 fL (9.4-12.4); Platelet Count 141 K/uL (130-400); RDW Coefficient of Variation 15.1 % (11.5-14.5); RDW Standard Deviation 49.5 fL (36.4-46.3); Red Blood Count 4.16 M/uL (4.20-5.40); White Blood Count 9.84 K/ul (4.8-10.8)
[2022-06-16 06:57] LABS: Creatinine Clr Calc Pharmacy 37.8 ml/min; Est GFR (African American) 44.4 ml/min; Est GFR (Non-African American) 38.3 ml/min; Potassium 3.3 mmol/L (3.5-5.1)
[2022-06-16] MEDS: INSULIN ASPART PER UNIT SC SCH ×4 (08:52→20:51)
[2022-06-16] MEDS: BUMETANIDE 2 MG in SYRINGE 0 ML IV SCH ×2 (08:59→20:51)
[2022-06-16] MEDS: METOPROLOL SUCC 50MG EXT REL TAB PO SCH (08:59)
[2022-06-16] MEDS: ASPIRIN 81 MG ECTAB PO SCH (08:59)
[2022-06-16] MEDS: PANTOprazole 40 MG TAB PO SCH (08:59)
[2022-06-16] MEDS: CYANOCOBALAMIN (B-12) 500 MCG TABLET PO SCH (08:59)
[2022-06-16] MEDS: APIXABAN 5 MG TABLET PO SCH ×2 (09:00→20:51)
[2022-06-16] MEDS: MAGNESIUM OXIDE 400 MG TAB PO SCH ×2 (09:00→20:52)
--- NOTE | 2022-06-16 17:14 | Hospitalist Progress Note ---
Date of Service June 16, 2022 Assessment & Plan (1) (HFpEF) heart failure with preserved ejection fraction: Plan: Last TTE in 2020 therefore will repeat Continue metoprolol succinate Increase Bumex 1mg PO BID -> 2mg IV BID Strict I's and O's, daily weights Low-sodium diet, fluid restrict to 1500 mL continue current diuretic management. 2/3-continue with close monitoring of input output Patient needs dose of Bumex increased to facilitate diuresis Discussed with patient's daughter about need to have PT OT eval completed Patient may need placement temporarily in a senior care or rehab facility Pending case management evaluation 2/4-continue diuretic effort with Bumex Monitor I's and O's closely Needs temporary placement Case management to assist with senior care facility placement 2/5-continue IV diuretic effect with Bumex to facilitate improvement in lower extremity edema Continue dressing changes for lower extremity excoriations Case management to assist with temporary placement Plan discussed in depth with patient's daughter at bedside as well as with RN (2) Generalized weakness: Plan: Suspect mostly due to bilateral leg pitting edema with open wounds present Wound care nurse consult (3) Permanent atrial fibrillation: Plan: Anticoagulation with apixaban 5 mg p.o. twice daily Continue rate control with metoprolol succinate 50 mg p.o. daily (4) Hypothyroid: Plan: Repeat TSH pending Continue levothyroxine 25 mcg PO daily (5) Type 2 diabetes mellitus: Plan: HbA1c 8.4 in February 2022, will repeat with a.m. labs NovoLog: --Goal BSG Range: Low 110 mg/dL, High 140 mg/dL --Correction Factor: 45 mg/dL/unit --Carbohydrate ratio = 15 g/unit --BSGs ACHS if eating, q6h if npo (6) PAD (peripheral artery disease): Plan: Continue aspirin Consider arterial US once wounds improved (7) B12 deficiency: Plan: Given generalized weakness will repeat level Continue B12 supplementation Plan VTE prophylaxis - Eliquis Diet - heart healthy, low-sodium, type 2 diabetes, fluid restrict as above Disposition - admit to [facility] telemetry Admission and Anticipated Discharge Date Admission Date: June 11, 2022 Subjective Patient denies any acute complaints Still reports some fatigue symptoms No chest pain or shortness of breath reported Patient able to get out of bed and ambulate with assistance Dressing changes for lower extremity ulcerations done and are improving . Physical Exam Physical Exam: Head and ENT no thyroid enlargement trachea midline Cardiovascular S1-S2 are normal no S3 Lungs bilateral air entry fair no wheezing Abdomen soft nondistended positive bowel sounds no rebound tenderness Extremity shows 1+ edema with skin excoriations improving slowly Dressing changes done with Aquacel and Aquaderm Neurologically no focal deficits Skin shows no rash no cyanosis Results & Data Results & Data ([facility]) Vital Signs (Past 12 Hours) Vital Signs Temp Pulse Pulse Pulse Resp BP Pulse Ox 06/16/22 15:48 36.4 C L 105 H 19 136/78 94 06/16/22 14:01 81 06/16/22 10:58 36.5 C 79 18 132/87 94 06/16/22 10:48 06/16/22 07:28 36.7 C 71 18 129/77 95 O2 Del Method O2 Flow Rate 06/16/22 15:48 Nasal Cannula 2 06/16/22 14:01 06/16/22 10:58 Nasal Cannula 2 06/16/22 10:48 Room Air 06/16/22 07:28 Nasal Cannula 2 PG Care Time/CCT Total # of Minutes Spent Total Time Spent with Patient: Total time spent is greater than 50% in coordination of care (as documented) at patient's floor/unit and/or counseling patient: Coding Level of Care Code 83898 SUB INP/OBS CARE 2MIN Diagnoses (HFpEF) heart failure with preserved ejection fraction I50.30 Generalized weakness R53.1 Permanent atrial fibrillation I48.21 Hypothyroid E03.9 Type 2 diabetes mellitus E11.9 PAD (peripheral artery disease) I73.9 B12 deficiency E53.8
[2022-06-16] MEDS: POLYETHYLENE (MIRALAX) 17 GM PACK PO PRN (18:29)
[2022-06-17] MEDS: LEVOTHYROXINE SODIUM 25 MCG TABLET PO SCH (05:32)
[2022-06-17 07:05] LABS: Hematocrit (blood only) 37.4 % (37.0-47.0); Hemoglobin 12.2 g/dl (12.0-16.0); Mean Corpuscular Hemoglobin 30.2 pg (25.0-34.0); Mean Corpuscular Hgb Conc 32.6 g/dL (32.0-36.0); Mean Corpuscular Volume 92.6 fL (80.0-100.0); Mean Platelet Volume 10.5 fL (9.4-12.4); Platelet Count 162 K/uL (130-400); RDW Coefficient of Variation 14.9 % (11.5-14.5); RDW Standard Deviation 49.3 fL (36.4-46.3); Red Blood Count 4.04 M/uL (4.20-5.40)
[2022-06-17 07:29] LABS: BUN Creatinine Ratio 27.8 (10-20); Creatinine Clr Calc Pharmacy 35.6 ml/min; Est GFR (African American) 41.6 ml/min; Est GFR (Non-African American) 35.9 ml/min; Potassium 3.6 mmol/L (3.5-5.1)
[2022-06-17] MEDS: INSULIN ASPART PER UNIT SC SCH ×4 (08:20→21:23)
[2022-06-17] MEDS: APIXABAN 5 MG TABLET PO SCH ×2 (08:25→21:23)
[2022-06-17] MEDS: ASPIRIN 81 MG ECTAB PO SCH (08:25)
[2022-06-17] MEDS: CYANOCOBALAMIN (B-12) 500 MCG TABLET PO SCH (08:25)
[2022-06-17] MEDS: PANTOprazole 40 MG TAB PO SCH (08:25)
[2022-06-17] MEDS: BUMETANIDE 2 MG in SYRINGE 0 ML IV SCH ×2 (08:26→21:23)
[2022-06-17] MEDS: METOPROLOL SUCC 50MG EXT REL TAB PO SCH (08:26)
[2022-06-17] MEDS: MAGNESIUM OXIDE 400 MG TAB PO SCH ×2 (08:26→21:23)
--- NOTE | 2022-06-17 10:35 | XRay Report ---
SINGLE VIEW CHEST CLINICAL HISTORY: Congestive heart failure. FINDINGS: 2 AP, portable, upright chest radiographs are compared to study dated 06/11/2022 and correla meghan with chest CT dated 04/23/2021. The heart is enlarged. The pulmonary vasculature is noncongested. A right paramediastinal density corresponds to tortuous vascular structures when correlated with the prior CT scan. Chronic interstitial thickening similar to previous. Foci of parenchymal scarring are seen throughout both lungs. This is greatest at the lung bases. No airspace consolidation or large p leural effusion is identified 2 A large hiatal hernia is noted. No pneumothorax is seen. The skeletal structures are osteopenic. The bony thorax is grossly intact. Advanced arthritic change is seen in t he shoulders. Degenerative change and scoliosis is noted in the spine. IMPRESSION: 1. Cardiomegaly without radiographic evidence of congestive failure. 2. Large hiatal hernia. 3. No airspace consolidation or pleural effusion is identified ACT 112: Negative or not required by law. Electronically signed by: Jose Priest M.D. 06/17/2022 10:34 AM
[2022-06-17] MEDS ORDERED: bisacodyL 10 MG SUPP PR STA (14:27)
--- NOTE | 2022-06-17 16:22 | Hospitalist Progress Note ---
Date of Service June 17, 2022 Assessment & Plan (1) (HFpEF) heart failure with preserved ejection fraction: Plan: Diuresing well with intravenous Bumex. Portable chest x-ray done today, June 17, is negative for CHF. She is still requiring low-flow oxygen which hopefully can be weaned off soon. (2) Generalized weakness: Plan: Continue treatment of CHF. Continue OT and PT (3) Permanent atrial fibrillation: Plan: Continue apixaban 5 mg p.o. twice daily. Continue rate control with metoprolol succinate 50 mg p.o. daily. Telemetry (4) Hypothyroid: Plan: Continue levothyroxine 25 mcg PO daily (5) Type 2 diabetes mellitus: Plan: ADA diet. Sliding scale insulin coverage. (6) PAD (peripheral artery disease): Plan: Continue aspirin. Consider arterial US once wounds improved (7) B12 deficiency: Plan: Continue B12 supplementation (8) Acute respiratory failure with hypoxia: Plan: Supplemental oxygen to maintain saturation greater than 90%. Treat underlying CHF. Wean oxygen off as tolerated Plan VTE prophylaxis - Eliquis Diet - heart healthy, low-sodium, type 2 diabetes, fluid restrict as above Disposition -anticipate discharge to SNF facility when arrangements are finalized. Hopefully tomorrow, June 18 Admission and Anticipated Discharge Date Admission Date: June 11, 2022 Subjective Alert. No complaints. Daughter is concerned about bilateral upper extremity edema but she is on Eliquis and bilateral upper extremity DVT development would be extremely rare. She is diuresing well and I expect the edema to resolve once her ambulation improves. Repeat portable chest x-ray today, June 17, reveals no signs of CHF. Oxygen requirement is only 2 L/min per nasal cannula and will be weaned off as tolerated. Creatinine up slightly to 1.3. Potassium 3.6. Constipation is being treated. [facility], possibly tomorrowJune 18 Review of Systems Review of Systems: Constitutional-no fever or chills ENT-no blurred vision, no double vision, no epistaxis, no sore throat Respiratory-no cough, no wheezing, no shortness of breath Cardiac-no palpitations, no chest pain, no syncope GI-no nausea, vomiting, diarrhea, melena, hematochezia. Constipation noted -no urinary retention, no urinary incontinence, no dysuria, no hematuria Musculoskeletal-no joint pain, no muscle tenderness Skin-no bruising, no rashes, no pruritus Neuro-no isolated weakness, no paresthesia, no weakness Psych-no depression, no anxiety Physical Exam Physical Exam: General-alert and oriented x3, no fevers, no chills HEENT-head atraumatic and normocephalic, TMs intact bilaterally, pupils equal and reactive to light, extraocular muscles intact Neck-no lymphadenopathy or thyromegaly, trachea midline Chest-bibasilar inspiratory rales. No wheezing Cardiac-irregular rhythm, heart rate 70-80, normal S1 and S2 Abdomen-normal bowel sounds, nontender, no hepatosplenomegaly Extremities-bilateral upper extremity nonpitting edema Neuro-cranial nerves II through XII intact, motor and sensory function within normal limits, strength symmetrical , no focal deficits Psych-normal affect, normal mood Results & Data Results & Data ([facility]) Vital Signs (Past 12 Hours) Vital Signs Temp Pulse Pulse Resp BP BP Pulse Ox 06/17/22 15:34 36.7 C 82 18 119/71 95 06/17/22 08:00 06/17/22 08:20 36.6 C 84 20 122/72 92 06/17/22 05:36 71 18 128/85 93 O2 Del Method O2 Flow Rate 06/17/22 15:34 Nasal Cannula 2 06/17/22 08:00 Nasal Cannula 2 06/17/22 08:20 Nasal Cannula 2 06/17/22 05:36 Nasal Cannula 2 Laboratory Results 06/17/22 06:24 06/17/22 06:24 PG Care Time/CCT Total # of Minutes Spent Total Time Spent with Patient: Total time spent is greater than 50% in coordination of care (as documented) at patient's floor/unit and/or counseling patient: Coding Level of Care Code 59321 SUB INP/OBS CARE 3/50MIN Diagnoses (HFpEF) heart failure with preserved ejection fraction I50.30 Generalized weakness R53.1 Permanent atrial fibrillation I48.21 Hypothyroid E03.9 Type 2 diabetes mellitus E11.9 PAD (peripheral artery disease) I73.9 B12 deficiency E53.8 Acute respiratory failure with hypoxia J96.01
[2022-06-18] MEDS: LEVOTHYROXINE SODIUM 25 MCG TABLET PO SCH (06:02)
[2022-06-18] MEDS: INSULIN ASPART PER UNIT SC SCH ×4 (08:14→20:46)
[2022-06-18 08:25] LABS: BUN Creatinine Ratio 30.8 (10-20); Calcium 9.1 mg/dl (8.5-10.1); Creatinine Clr Calc Pharmacy 40.8 ml/min; Est GFR (African American) 48.5 ml/min; Est GFR (Non-African American) 41.9 ml/min; Potassium 3.2 mmol/L (3.5-5.1)
[2022-06-18] MEDS: CYANOCOBALAMIN (B-12) 500 MCG TABLET PO SCH (08:51)
[2022-06-18] MEDS: APIXABAN 5 MG TABLET PO SCH ×2 (08:51→20:47)
[2022-06-18] MEDS: MAGNESIUM OXIDE 400 MG TAB PO SCH ×2 (08:51→20:47)
[2022-06-18] MEDS: ASPIRIN 81 MG ECTAB PO SCH (08:51)
[2022-06-18] MEDS: METOPROLOL SUCC 50MG EXT REL TAB PO SCH (08:51)
[2022-06-18] MEDS: BUMETANIDE 2 MG in SYRINGE 0 ML IV SCH ×2 (08:51→20:46)
[2022-06-18] MEDS: PANTOprazole 40 MG TAB PO SCH (08:51)
[2022-06-18] MEDS: POLYETHYLENE (MIRALAX) 17 GM PACK PO SCH (08:51)
[2022-06-18] MEDS: POTASSIUM CHLORIDE CRTAB 20 MEQ TABCR PO SCH ×2 (10:51→20:46)
--- NOTE | 2022-06-18 14:46 | Hospitalist Progress Note ---
Date of Service June 18, 2022 Assessment & Plan (1) (HFpEF) heart failure with preserved ejection fraction: Plan: Diuresing well with intravenous Bumex. Portable chest x-ray will be repeated tomorrowJune 19. She is still requiring low-flow oxygen which hopefully can be weaned off soon. (2) Generalized weakness: Plan: Continue treatment of CHF. Continue OT and PT (3) Permanent atrial fibrillation: Plan: Continue apixaban 5 mg p.o. twice daily. Continue rate control with metoprolol succinate 50 mg p.o. daily. Telemetry (4) Hypothyroid: Plan: Continue levothyroxine 25 mcg PO daily (5) Type 2 diabetes mellitus: Plan: ADA diet. Sliding scale insulin coverage. (6) PAD (peripheral artery disease): Plan: Continue aspirin. Consider arterial US once wounds improved (7) B12 deficiency: Plan: Continue B12 supplementation (8) Acute respiratory failure with hypoxia: Plan: Supplemental oxygen to maintain saturation greater than 90%. Treat underlying CHF. Wean oxygen off as tolerated Plan VTE prophylaxis - Eliquis Diet - heart healthy, low-sodium, type 2 diabetes, fluid restrict as above Disposition -anticipate discharge to [facility] hopefully tomorrow June 18 Admission and Anticipated Discharge Date Admission Date: June 11, 2022 Subjective Alert and oriented. No distress. She continues with brisk diuresis. Will obtain portable chest x-ray tomorrowJune 19. She is on low-flow oxygen. Hopefully she can go to [facility] tomorrowJune 19. Potassium supplement ation ordered. Creatinine stable at 1.1 Review of Systems Review of Systems: Constitutional-no fever or chills ENT-no blurred vision, no double vision, no epistaxis, no sore throat Respiratory-no cough, no wheezing, no shortness of breath Cardiac-no palpitations, no chest pain, no syncope GI-no nausea, vomiting, diarrhea, melena, hematochezia. Constipation noted -no urinary retention, no urinary incontinence, no dysuria, no hematuria Musculoskeletal-no joint pain, no muscle tenderness Skin-no bruising, no rashes, no pruritus Neuro-no isolated weakness, no paresthesia, no weakness Psych-no depression, no anxiety Physical Exam Physical Exam: General-alert and oriented x3, no fevers, no chills HEENT-head atraumatic and normocephalic, TMs intact bilaterally, pupils equal and reactive to light, extraocular muscles intact Neck-no lymphadenopathy or thyromegaly, trachea midline Chest-bibasilar inspiratory rales. No wheezing Cardiac-irregular rhythm, heart rate 70-80, normal S1 and S2 Abdomen-normal bowel sounds, nontender, no hepatosplenomegaly Extremities-bilateral upper extremity nonpitting edema Neuro-cranial nerves II through XII intact, motor and sensory function within normal limits, strength symmetrical , no focal deficits Psych-normal affect, normal mood Results & Data Results & Data ([facility]) Vital Signs (Past 12 Hours) Vital Signs Temp Pulse Resp BP BP Pulse Ox O2 Del Method 06/18/22 11:20 36.5 C 86 20 128/84 96 Nasal Cannula 06/18/22 07:46 36.6 C 72 18 149/73 H 95 Nasal Cannula 06/18/22 02:58 36.6 C 69 18 119/71 94 Nasal Cannula O2 Flow Rate 06/18/22 11:20 2 06/18/22 07:46 2 06/18/22 02:58 2 Laboratory Results 06/17/22 06:24 06/18/22 07:20 PG Care Time/CCT Total # of Minutes Spent Total Time Spent with Patient: Total time spent is greater than 50% in coordination of care (as documented) at patient's floor/unit and/or counseling patient: Coding Level of Care Code 48219 SUB INP/OBS CARE 3/50MIN Diagnoses (HFpEF) heart failure with preserved ejection fraction I50.30 Generalized weakness R53.1 Permanent atrial fibrillation I48.21 Hypothyroid E03.9 Type 2 diabetes mellitus E11.9 PAD (peripheral artery disease) I73.9 B12 deficiency E53.8 Acute respiratory failure with hypoxia J96.01
[2022-06-18] MEDS ORDERED: POTASSIUM CHLORIDE CRTAB 20 MEQ TABCR PO STA (21:24)
[2022-06-19] MEDS: LEVOTHYROXINE SODIUM 25 MCG TABLET PO SCH (05:45)
--- NOTE | 2022-06-19 07:05 | XRay Report ---
XR chest 1V portable CLINICAL HISTORY: Congestive heart failure. COMPARISON STUDY: Chest CT April 23, 2021 and chest radiograph June 17, 2022. FINDINGS: Incidental note is made of severe degenerative changes of shoulders. Cardiomegaly is unchan ged. A hiatal hernia is noted. Right suprahilar density remains unchanged. No consolidation is identi fied to suggest pneumonia. No radiographic evidence for pulmonary edema. IMPRESSION: No significant change in appearance of chest. Cardiomegaly without radiographic evidence for pulmonary edema. ACT 112: Negative or not required by law. Electronically signed by: Cash Blackman M.D. 06/19/2022 7:04 AM
[2022-06-19 07:31] LABS: BUN Creatinine Ratio 32.8 (10-20); Calcium 9.3 mg/dl (8.5-10.1); Creatinine Clr Calc Pharmacy 38.2 ml/min; Est GFR (African American) 44.8 ml/min; Est GFR (Non-African American) 38.6 ml/min; Potassium 3.9 mmol/L (3.5-5.1)
[2022-06-19] MEDS: POTASSIUM CHLORIDE CRTAB 20 MEQ TABCR PO SCH (07:54)
[2022-06-19] MEDS: BUMETANIDE 2 MG in SYRINGE 0 ML IV SCH (07:54)
[2022-06-19] MEDS: MAGNESIUM OXIDE 400 MG TAB PO SCH (07:54)
[2022-06-19] MEDS: ASPIRIN 81 MG ECTAB PO SCH (07:55)
[2022-06-19] MEDS: CYANOCOBALAMIN (B-12) 500 MCG TABLET PO SCH (07:55)
[2022-06-19] MEDS: METOPROLOL SUCC 50MG EXT REL TAB PO SCH (07:55)
[2022-06-19] MEDS: PANTOprazole 40 MG TAB PO SCH (07:55)
[2022-06-19] MEDS: APIXABAN 5 MG TABLET PO SCH (07:55)
[2022-06-19] MEDS: POLYETHYLENE (MIRALAX) 17 GM PACK PO SCH (07:55)
[2022-06-19] MEDS: INSULIN ASPART PER UNIT SC SCH ×2 (08:35→12:03)
--- NOTE | 2022-06-19 12:04 | Discharge Summary ---
Date of Service June 19, 2022 Admission HPI Per Admitting Provider Nunu Tipton is an 86-year-old female who presents to the ER by EMS due to ambulatory dysfunction, bilateral lower extremity swelling and generalized fatigue. She reports progressive worsening of her leg edema over the last 5 days but much worse the last 2 days. Now unable to get out of her wheelchair. Wounds now seeping with yellow crusting. No fevers or chills. Mild shortness of breath. No chest pain. Using her oxygen more in the last 4 to 5 days. Previously on room air during the daytime but uses nocturnal oxygen. Principal Diagnosis Acute diastolic congestive heart failure, acute hypoxic respiratory failure Discharge Exam General-alert and oriented x3, no fevers, no chills HEENT-head atraumatic and normocephalic, TMs intact bilaterally, pupils equal and reactive to light, extraocular muscles intact Neck-no lymphadenopathy or thyromegaly, trachea midline Chest-bibasilar inspiratory rales. No wheezing Cardiac-irregular rhythm, heart rate 70-80, normal S1 and S2 Abdomen-normal bowel sounds, nontender, no hepatosplenomegaly Extremities-bilateral upper and lower extremity nonpitting edema Neuro-cranial nerves II through XII intact, motor and sensory function within normal limits, strength symmetrical , no focal deficits Psych-normal affect, normal mood Discharge Data Allergies Allergy/AdvReac Type Severity Reaction Status Date / Time Sulfa (Sulfonamide Allergy Unknown Unknown Verified 03/07/22 10:16 Antibiotics) Consultations 06/11/22 13:44 ED Decision to Admit Stat Hospital Course (1) (HFpEF) heart failure with preserved ejection fraction: Diuresing well with intravenous Bumex. We will switch to p.o. Bumex at discharge. Portable chest x-ray repeated today, June 19, and looks better to my eye. She is still requiring low-flow oxygen which hopefully can be weaned off soon. (2) Generalized weakness: Continue treatment of CHF. Continue OT and PT (3) Permanent atrial fibrillation: Continue apixaban 5 mg p.o. twice daily. Continue rate control with metoprolol succinate 50 mg p.o. daily. Telemetry (4) Hypothyroid: Continue levothyroxine 25 mcg PO daily (5) Type 2 diabetes mellitus: ADA diet. Sliding scale insulin coverage. (6) PAD (peripheral artery disease): Continue aspirin. Consider arterial US once wounds improved (7) B12 deficiency: Continue B12 supplementation (8) Acute respiratory failure with hypoxia: Supplemental oxygen to maintain saturation greater than 90%. Treat underlying CHF. Wean oxygen off as tolerated Plan VTE prophylaxis - Eliquis Diet - heart healthy, low-sodium, type 2 diabetes, fluid restrict as above Disposition -discharge to [facility] today, June 19. I expect the oxygen to be weaned off soon Total Time Total Time Spent Total Time Spent (In Minutes): 35 minutes Discharge Plan Discharge Items Patient Disposition: Transfer [facility] Reason For Visit: GENERALIZED WEAKNESS, ACUTE ON CHRONIC HFPEF Discharge Diagnosis: Acute diastolic congestive heart failure, acute hypoxemic respiratory failure Activity: Resume your previous activity Non-emergency contact: Primary Care Provider Call non-emergency contact if: you have any medication questions and your symptoms worsen Follow-up/Referrals: Todd France DO [Primary Care Provider] - Coby Strauss PA-C [Physician [employer]] - 06/25/22 10:30 am Diet: Carb Consistent or DM2 and Heart Healthy Addtl Attending Provider Instructions: Oxygen will eventually be weaned off Pending Studies at Discharge: No Stand-Alone Forms: My [facility] Skilled Items Patient informed of condition?: Yes DNR: No Discharge Level of Care: Skilled Communicable Disease: No Discharge Prognosis: Stable Lines: None Urinary Catheter: No Medications and DC Order Prescriptions: New potassium chloride 10 mEq capsule, extended release 20 meq PO BID Qty: 30 0RF bumetanide 2 mg tablet 2 mg PO BID Qty: 30 0RF Continued magnesium oxide 400 mg (241.3 mg magnesium) tablet 400 mg PO BID Qty: 90 3RF cyanocobalamin (vitamin B-12) 500 mcg tablet 1,000 mcg PO QAM Qty: 180 3RF aspirin 81 mg tablet,delayed release (DR/EC) 81 mg PO QAM Qty: 90 3RF apixaban 5 mg tablet 5 mg PO BID Qty: 180 3RF metoprolol succinate 50 mg tablet extended release 24 hr 50 mg PO DAILY Qty: 90 3RF levothyroxine 25 mcg capsule 25 mcg PO DAILY Qty: 90 3RF omeprazole 20 mg capsule,delayed release(DR/EC) 20 mg PO DAILY Centrum Silver Women 8 mg iron-400 mcg-300 mcg Tablet 1 tab PO DAILY (DME) Oxygen Home Liters Per Minute See Rx Instructions .ROUTE .MEDSUPPLY Qty: 1 0RF Rx Instructions: 2 liters NC O2 with ambulation/activity. Discontinued bumetanide 1 mg tablet See Rx Instructions .ROUTE .COMPLEX Rx Instructions: take 2mg @ 8am, and 1mg @ 4pm each day. Discharge Orders: Discharge Order- CHF (Routine); Ordered 06/19/22 Ordered By: Kristian Scales/Other Patient Handouts: Managing Type 2 Diabetes Admission Data Admit Date/Time: 06/11/22 13:25 Attending Provider: Kristian Woodward Admit Provider: Yung Lucas Primary Care Provider: Todd France Other Providers: Yung Lucas ; Carlos Verma [place] ; [facility] ; Franklin Chacko [facility] Coding Level of Care Code HOSP INP/OBS DISCH >30 MIN Diagnoses (HFpEF) heart failure with preserved ejection fraction I50.30 Generalized weakness R53.1 Permanent atrial fibrillation I48.21 Hypothyroid E03.9 Type 2 diabetes mellitus E11.9 PAD (peripheral artery disease) I73.9 B12 deficiency E53.8 Acute respiratory failure with hypoxia J96.01
== END 2022-06-19 15:35 | DRG 291 ==
LOC: ED 10:39 → EDINP 13:25 → SUATTDRO 13:25 → 2W 06-12 14:21